=== PATIENT | male | born 1950 | race Caucasian/White ===

== ENCOUNTER 2018-03-31 11:53 | Inpatient (IN) | payer MEDICARE ==
--- NOTE | 2018-03-28 16:52 | HP ---
HISTORY AND PHYSICAL: DATE OF SERVICE: 03/31/18. PROVIDER: Dr. Caterina Blandon.* (DICTATED BY RICA FERREIRA) HISTORY OF PRESENT ILLNESS: Mr. Goodson is a 67-year-old gentleman with years of bilateral knee pain. He states that the pain is an 8 to 9 out of 10, aching and severe. He has trouble ambulating for more than a block at this point due to the severe pain. He has failed conservative management with anti- inflammatories, pain medications, use of a cane, crutches, and physical therapy. He would like to proceed with a right total knee arthroplasty at this time to be performed on 03/31/[address] Caterina Blandon. PAST MEDICAL HISTORY: 1. Morbid obesity. 2. Hypertension. 3. Osteoarthritis. 4. Depression. 5. Chronic low back pain. 6. Enlarged prostate. 7. Sleep apnea. PAST SURGICAL HISTORY: Lumbar laminectomy and hernia repair. MEDICATIONS: 1. Olmesartan. 2. Medoxomil/hydrochlorothiazide 20/12.5 mg. 3. Nitroxoline 400 mg. 4. Albuterol sulfate 1.25 mg/3 mL. 5. Mometasone furoate 50 mg. 6. Felodipine ER 2.5 mg. 7. Hydrocodone/acetaminophen 5/325. 8. Advair HFA 230-21 9. ProAir HFA 108. 10. Bupropion 100 mg. 11. Singular 10 mg. 12. Loratadine 10 mg 13. Tamsulosin hydrochloric acid acid 0.4 mg. 14. Finasteride 5 mg. 14. Vitamin D3 1000 units 16. Meloxicam 15 mg. 17. Oxymetazoline hydrochloric acid 0.05%. ALLERGIES: 1. CHICKEN. 2. CHOCOLATE. 3. DIARY. 4. PSEUDOEPHEDRINE. 5. LEVAQUIN. 6. BENAZEPRIL. SOCIAL HISTORY: The patient lives with his spouse. 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 He has no tobacco or recreational drug use. He drinks 3 to 5 alcoholic beverages per week. Normally active . Right hand dominant. REVIEW OF SYSTEMS: General: The patient denies any fevers, chills or night sweats. No known anesthesia problems. HEENT: The patient denies any headaches , lightheadedness or syncopal episodes. Cardiothoracic: The patient denies any chest pain, heart palpitations, or edema. Pulmonary: The patient denies any shortness of breath with exertion, chronic cough, or COPD. GI: The patient denies any nausea, vomiting, diarrhea, or constipation. : The patient denies any nocturia, urinary frequency, or urgency. MSK: The patient admits to chronic low back pain. Denies any neck pain or fractures. Neuro: The patient denies any paresthesias, numbness, or seizures. Integument: The patient denies any abrasions, lesions, rashes, lumps, or open sores. PHYSICAL EXAMINATION GENERAL: The patient is alert and oriented x3, with appropriate mood and affect , appropriate dress and hygiene. HEENT: Normocephalic, atraumatic. Hearing and vision are grossly intact. PULMONARY: Lungs are clear to auscultation bilaterally with no wheezes, rales, or rhonchi. CARDIO: Regular rate and rhythm. Normal S1 and S2. No appreciable S3 or S4. No murmurs, rubs, or gallops. MUSCULOSKELETAL: Right lower extremity: Inspection of the right lower extremity reveals no erythema or ecchymosis. Skin is warm, dry, and intact. There is moderate effusion present above the knee. Tenderness along the medial and lateral joint line. No increased laxity obtained with varus or valgus stress testing. Negative Ricarda's. Negative anterior and posterior drawer tests. Range of motion of the knee is 10 degree of extension to 120 degrees of flexion. He has full strength and full sensation intact distally with a 2+ dorsalis pedis pulse. IMPRESSION: Right knee osteoarthritis, severe end stage. PLAN: To the OR for a right total knee arthroplasty to be performed by Dr. Caterina Blandon on 03/31/18. The patient will return postoperatively for suture removal and a follow up. The risks, benefits, and complications of surgery were discussed with the patient at this time by Dr. Blandon. RICA FERREIRA [id number]/[facility] #: [id number] [facility]ITAL[facility]ovanny
[~2018-03-31 11:53] MED LIST: Buffered Lidocaine 0.9% SYRIN* 5 ML/SYR SYRINGE INTRADERM ONE; Dexamethasone TAB* 4 MG PO ONE; DiMENhydriNATE IV* 50 MG/ML VIAL IV PUSH PRN; Famotidine IV* 10 MG/ML 2 ML (20 mg) IV ONE; Gabapentin CAP(*) 300 MG PO ONE; Morphine VIAL* 4 MG/ML VIAL (1 ml vial) IV PRN; Naloxone* 0.4 MG/ML 1 ML VIAL IV PRN; Ondansetron INJ* 2 MG/ML VIAL ONE; PROCHLORPERAZINE INJ 5 MG/ML 2 ML VIAL IV PRN; Scopolamine 1.5 mg* PATCH TRANSDERM PRN; Tranexamic Acid 1,000 MG in NS 0.9% 50 ML* (outpatient use) IV SCH; fentaNYL* 50 MCG/ML 2 ML VIAL (100 MCG VIAL) IV PRN; oxyCODONE/Acetamin 5/325 MG* TAB PO PRN
--- OUTSIDE RECORDS SUMMARY | 2018-03-31 12:00 | XMS REPORT ---
:1950 External Reference #:[id number] Author Organization [facility] Address [address] [place] [address] Phone [phone] Care Team Providers Name Role Phone Jayesh Sidhu MD Primary Care Physician Unavailable Payers Type Date Identification Numbers Payment Provider Subscriber Health Maintenance Policy Number: Medicare Blue Ppo Roxana Giovanny Hamzah Collins (O) [id number] Group Number: [id number] [address] [address] PayID: [id number] [place] [address] Problems Date Description Provider Status Onset: 04/12/2009 Intrinsic asthma without status Jayesh Sidhu M.D., FACP Active asthmaticus Onset: 04/12/2009 Obesity Jayesh Sidhu M.D.,FACP Active Onset: 04/12/2009 Obstructive sleep apnea syndrome Jayesh Sidhu M.D., FACP Active Onset: 10/28/2009 Impaired fasting glycaemia Jayesh Sidhu M.D.,FACP Active Onset: 01/05/2011 Atypical depressive disorder Jayesh Sidhu M.D.,FACP Active Onset: 01/05/2011 Cobalamin deficiency Jayesh Sidhu M.D.,FACP Active Onset: 01/05/2011 Vitamin D deficiency Jayesh Sidhu M.D.,FACP Active Onset: 05/18/2011 Family history of prostate Jayesh Sidhu M.D.,FACP Active cancer Onset: 05/31/2015 Essential hypertension Ameya Glover NP Active Onset: 02/10/2016 Headache Aurora Flannery DNP, RN, Active POLYSOM TECH-BC Onset: 10/18/2016 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 Active osteoarthritis Onset: 04/09/2017 Displacement of lumbar Vassilaly Clements MD Active intervertebral disc without myelopathy Onset: 04/09/2017 Lumbosacral spondylosis without Latosha Clements MD Active myelopathy Onset: 01/05/2011 Extrinsic asthma without status Jayesh Sidhu, Inactive asthmaticus [place],FACP Inactive: 12/21/2011 Family History Date Family Member(s) Problem(s) Comments Father due to at age 94 () Father Cancer, Colon : (age 80 Years) Mother due to Alzheimer's Disease Siblings 2 Onset: (age 64 Years) First Brother Cancer, Prostate Social History Type Date Description Comments Marital Status Lives With 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 Cigarette Use Never Smoked Cigarettes ETOH Use 03/06/2018 consumes 2-3 beers per week Recreational Drug Use 04/24/2016 Denies Drug Use Smoking Patient has never smoked Daily Caffeine Consumes on average 3 cups of regular coffee per day Exercise Type/Frequency PT therapy pool General Hx Text 2 children Allergies, Adverse Reactions, Alerts Date Description Reaction Status Severity Comments 04/12/2009 Chicken nasal congestion active 04/12/2009 Chocolate nasal congestion active 04/12/2009 Dairy nasal congestion active 04/12/2009 Sudafed anxiety active 06/16/2015 Levaquin active Achilles tendonitis 09/12/2017 Benazepril active cough Medications Medication Date Status Form Strength Qnty SIG Indications Ordering Provider Hospital Bed 03/05 Active 1unit Semi- Caterina s ricarda Patterson M.D. bed Walker 03/05 Active Misc 1unit front s wheeled hiren Blandon M.D. Shower Bench 03/05 Active 1unit shower s bench Barber M.D. Shingrix 01/14 Active Suspension 50mcg 2unit 0.5 Rec s milliliter Alice Sidhu, s M.D.,FACP intramuscu lar now and 2-3 months later repeat Olmesartan 01/14 Active Tablets 20-12.5mg 90tab 1 po qam R05 Medoxomil/Hydroch s Alice Sidhu, lorothiazide M.D.,FACP Metaxalone 10/25 Active Tablets 400mg 60tab one tab by s mouth Alice Sidhu, twice M.D.,FACP daily as needed Albuterol Sulfate 09/13 Active Nebulizer 1.25mg/3M 75ml use four L times a Alice Sidhu, day as M.D.,FACP needed with nebulizer Mometasone 08/06 Active Suspension 50mcg/Act 17gm 1 spray Adrián Furoate nasl each Pachikara side every , M.D. day Felodipine ER 08/06 Active Tablets ER 2.5mg 90tab 1 by mouth I10 24HR s every day Alice Sidhu M.D.,FACP Hydrocodone-Aceta 02/12 Active Tablets 5-325mg 120ta 1 by mouth bs every 4-6 D. Nahum, hours prn. M.D.,FACP Blood Pressure 08/02 Active Misc 1unit Check BP R05 Ameya Monitor Digital /2015 s 1-2 times Adalberto, [facility]ED [facility] weekly Advair HFA 06/16 Active Aerosol 230-21mcg 12gm 2 puffs J01.90 /2015 /Act twice Alice Sidhu, daily M.D.,FACP Proair HFA 05/31 Active Aerosol 108(90Bas 1unit take 2 R05 e) s puffs Alice Sidhu, mcg/Act every 4-6 M.D.,FACP hours as needed for shortness of breath. Cyanocobalamin 08/01 Active Solution 1000mcg/M 10uni 1 D51.3 L ts milliliter Alice Sidhu, s M.D.,FACP intramuscu lar [id number] Vitamin B-12 12/20 Active Tablets Sub 500mcg 50tab 1 po qd D51.3 s Alice Sidhu M.D.,FACP Bupropion HCL 01/05 Active Tablets 100mg 90tab take 2 F32.9 s tablets by Levonikara arnie M.D. every morning and 1 tablet at noon Singulair 01/05 Active Tablets 10mg 30tab 1 by mouth J45.20 s every day Alice Sidhu M.D.,FACP 3ML 12/08 Active Misc 22G X 1" 12uni use for Jayesh Syringe/Needle 3 ML ts b12 Alice Sidhu, Thin Wall injection [place],FACP Luer-Urban 22GX1" Im Loratadine 04/12 Active Tablets 10mg 90tab take 1 tab s daily as Alice Sidhu, needed M.DAngelina,FACP Tamsulosin HCL Active Capsules 0.4mg 30cap 1 po qd Unknown /0000 s Finasteride Active Tablets 5mg 90tab 1 by mouth Unknown / s every day Vitamin D-3 Active Capsules 1000Unit 1 by mouth Unknown /0000 every day Meloxicam Active Tablets 15mg 1 by mouth Unknown /0000 every day Oxymetazoline HCL Active Solution 0.05% nasal Unknown spray as directed on package prn Augmentin 09/12 Hx Tablets 875-125mg 14tab by mouth s twice a Alice Sidhu, - day [facility] 09/19 Prednisone 09/12 Hx Tablets 10mg 28tab 4 tabs s every day Alice Sidhu, - for 4 M.D.,FACP 09/22 days, reduce by 1 tab every 2 days until finished Cheratussin ac 09/12 Hx Solution 100-10mg/ 473ml 5-10 5ML milliliter Alice Sidhu, - s by mouth M.D.,FACP 01/14 four times /2017 a day as needed Amoxicillin/Clavu 08/06 Hx Tablets 875-125mg 20tab by mouth J01.10 Kwame Jeong lanate Potassium /2017 s twice a Alice Sidhu, - day [facility] 08/16 Valsartan-Hydroch 07/04 Hx Tablets 80-12.5mg 90tab 1 by mouth R0 Javier Helms lorothiazide s every day Alice Sidhu, - M.D.,[facility] 01/14 Azithromycin 04/30 Hx Tablets 250mg 6tabs 2 every Jayesh day for 1 D. Nahum, - day, then M.D.,[facility] 05/07 1 every day Valsartan 04/30 Hx Tablets 80mg 30tab 1 by mouth R0Jayesh s once daily Alice Sidhu, - M.D.,[facility] 07/04 Skelaxin 03/12 Hx Tablets 800mg 30tab 1/-1 by M47.26 s mouth Alice Sidhu, - three M.D.,[facility] 01/14 times day as needed Skelaxin 02/12 Hx Tablets 800mg 30tab 1 by mouth s three Alice Sidhu, - times a M.D.,[facility] 02/26 day needed Furosemide 09/11 Hx Tablets 20mg 10tab take 1 s tablet Alice Sidhu, - every M.D.,[facility] 04/30 Skelaxin 05/08 Hx Tablets 800mg 30tab 1 by mouth s three Alice Sidhu, - times a M.D.,[facility] 09/11 day needed Hydrocodone-Aceta 05/08 Hx Tablets 5-325mg 20tab 1 by mouth Jayesh minophen s every 4-6 D. Nahum, - hours prn. M.D.,[facility] 09/11 Valsartan 08/02 Hx Tablets 80mg 30tab 1 by mouth Jayesh s once daily Alice Sidhu, - M.D.,[facility] 04/30 Prednisone 06/17 Hx Tablets 20mg 10tab 2 tabs qd Ameya s x 5 days SALLY Glover - 06/24 Amoxicillin/Clavu 06/16 Hx Tablets ER 1000-62.5 40tab take 2 J01.90 Ameya lanate 12HR mg s tablets SALLY Glover ER - twice a 06/27 day for days. Benzonatate 06/16 Hx Capsules 200mg 30cap one by J01.90 s mouth Alice Sidhu, - three M.DAngelina,FACP 04/24 times daily as needed for cough Biaxin 06/07 Hx Tablets 500mg 28tab one tab s Q12 hrs Adalberto [facility] - for 14 Advair HFA 05/31 Hx Aerosol 115-21mcg 12gm 2 puffs Ameya /2015 /Act twice Adalberto [facility] - daily 04/24 Cheratussin ac 05/31 Hx Solution 100-10mg/ 473ml 5-10 R05 5ML milliliter Alice Sidhu, - s by mouth M.DAngelina,FACP 04/24 four times a day as needed Clarithromycin 05/17 Hx Tablets 500mg 14tab one tab by Katerin06.9 Jarett s mouth Dwain [facility] - twice a 05/26 day x days Methylprednisolon 05/17 Hx Tablets 4mg 21tab take 6 J06.9 Jarett e (Myron) s tabs on SALLY Prakash - day 1, 5 05/24 tabs day 2, 4 tabs on day 3, 3 tabs on day 4, 2 tabs on day 5, 1 tab on day 6 Cheratussin ac 05/17 Hx Solution 100-10mg/ 200un 5-10 493.92 Jarett 5ML its milliliter Dwain [facility] - s by mouth 06/01 four times a day as needed Xopenex 05/17 Hx Nebulizer 0.63mg/3M 72ml Instill to J06.9 Jarett L nebulizer SALLY Prakash - three 04/24 times day as needed for shortness of breath. Benazepril HCL 03/31 Hx Tablets 10mg 30tab 1 by mouth R05 Jarett s every day Prakash, [facility] - 08/02 Cheratussin ac 06/10 Hx Solution 100-10mg/ 200un 5-10 493.92 5ML its milliliter Alice Sidhu, - s by mouth M.D.,[facility] 03/31 four times a day as needed Advair HFA 06/10 Hx Aerosol 230-21mcg 2 puff /Act twice a D. Nahum, - day M.D.,[facility] 03/31 Levaquin 06/03 Hx Tablets 500mg 7tabs 1 by mouth 493.92 every day Alice Sidhu, - x 7 days M.D.,[facility] 06/03 Augmentin 06/03 Hx Tablets 875-125mg 14tab by mouth 493.92 s twice a D. Nahum, - day for 1 M.D.,[facility] 06/10 wk (can levaquin and clarithrom ycin) Prednisone 06/03 Hx Tablets 10mg 50tab 60 mg qd s for 3 D. Nahum, - days, then M.D.,[facility] 06/17 by 10 mg every 2 days until stopped Prednisone 06/01 Hx Tablets 20mg 2 tabs qd x 5 days DAngelina Sidhu, - M.D.,[facility] 06/03 Prednisone 06/01 Hx Tablets 20mg 2 tabs qd x 5 days - 06/03 Clarithromycin 12/23 Hx Tablets 500mg 20tab 1 by mouth 493.92 s twice a D. Nahum, - day for 10 M.D.,[facility] Oxycodone-Acetami 10/06 Hx Tablets 7.5-325mg 30tab /2-1 by 722.2 s mouth D. Nahum, - three M.D.,[facility] 12/23 times a day as needed Medrol 09/18 Hx Tablets 4mg 1pak medrol dosepack Alice Sidhu, - as M.D.,[facility] 10/06 Vitamin D-1000 05/22 Hx Tablets 1000Unit 3 tabs E55.9 daily Alice Sidhu, - M.D.,[facility] 04/24 BD 12/05 Hx 3ml 12uni Use For B ts 12 Yarely Zheng Injection [place],[facility] 12/20 Vitamin D 05/18 Hx Capsules 2000Unit 30cap 1 po qd 268.9 s Yarely Zheng M.D.,[facility] 05/22 Vitamin D High 01/05 Hx Capsules 1000Unit 1 po qd 268.9 Yarely Zheng M.D.,[facility] 05/18 Cyanocobalamin 11/24 Hx Solution 1000mcg/M 10uni Inject 1 L ts milliliter Yarely Zheng Intramuscu [place],[facility] 08/01 larly Monthly monthly Bupropion HCL SR 11/22 Hx Tablets ER 100mg 60tab 1 po qam 311 12HR s and q noon Yarely Zheng M.D.,[facility] 01/05 Advair HFA 10/28 Hx Aerosol 115-21mcg 2 puffs /Act qam Yarely Zheng M.D.,[facility] 06/10 Ventolin HFA 04/19 Hx Aerosol 108(90Bas 1mon 2 puffs R05 e) mcg/ac qid prn Yarely Zheng M.D.,[facility] 05/31 Advair Diskus 04/12 Hx Misc 250-50mcg 60uni inhale 1 /Dose ts dose by Yarely Zheng mouth [place],[facility] 10/28 twice a day Clarithromycin 04/12 Hx Tablets 500mg 14tab 1 po bid 493.10 s for 7 days Yarely Zheng M.D.,[facility] 10/28 Cipro Hx ?Dose bid Unknown /0000 started - 12/20/10 x 01/05 Vicodin Hx 5/500 1 tab Q6 Unknown /0000 hr. - 05/18 Avodart Hx Capsules 0.5mg 90cap 1 po qd Unknown /0000 s - 03/30 Nasonex Hx Suspension 50mcg/Act 1Mon 1 spray Unknown /0000 mir each - side every Benzonatate Hx Capsules 200mg 20cap one by Unknown /0000 s mouth - three 06/10 times daily x 10 days Vitamin B12 Hx Tablets 100mcg 1 by mouth Unknown /0000 every day - 04/24 Metaxalone Hx Tablets 400mg if needed Jayesh /Yarely Rebolledo M.D.,[facility] 03/12 Medications Administered in Office Medication Date Status Form Strength Qnty SIG Indications Ordering Provider B-12 Injection Administered Injection Nurse Visit 011 [place] B-12 Injection Administered Injection Nurse Visit 011 [place] B-12 Injection Administered Injection Nurse Visit 011 [place] Immunizations CPT Code Status Date Vaccine Reaction Lot # [id number] Given 03/06/2018 Fluzone High Dose [id number] 87518 Given 04/30/2017 Pneumococcal Conjugate Vaccine 13 Valent [id number] For Intramuscular Use 22421 Given 03/12/2017 Influenza Virus Vaccine, Quadrivalent, [id number] Split, Preservative Free [id number] Given 03/25/2016 Flu Vaccine NOS 32369 Given 03/22/2016 Influenza Virus Vaccine, Quadrivalent, Split Virus, [place] Use 78401 Given 04/08/2014 Flu Vaccine Split Virus Preservative [id number] Free For Indiv 3Yr Older Q2038 Given 06/04/2013 Fluzone Vaccine Q2037 Given 03/26/2012 Fluvirin Im 3Yrs And Older Q2037 Given 03/26/2012 Fluvirin Im 3Yrs And Older [id number] 53902 Given 12/21/2011 Zoster (Zostavax) [id number] 37409 Given 05/18/2011 Tdap - Tetanus/Diptheria/Acellular {} { [id number] Pertussis 81695 Given 03/30/2010 Pneumonia Vaccine [id number] 95743 Given 03/30/2010 Influenza Virus 3Yrs & Over [id number] 51046 Given 04/12/2009 Influenza Virus Vaccine, Pandemic [id number] Formulation 53271 Given 04/12/2009 Administration Swine Flu Shot Vital Signs Date Vital Result Comment 03/26/2018 Height 72 inches 6'0" Weight 328.00 lb Heart Rate 76 /min BP Systolic 138 mmHg BP Diastolic 84 mmHg Respiratory Rate 18 /min Body Temperature 97.6 F Pain Level 4 BMI (Body Mass Index) 44.5 kg/m2 03/12/2018 Height 72 inches 6'0" Weight 328.38 lb Heart Rate 68 /min BP Systolic Sitting 116 mmHg Lue large cuff BP Diastolic Sitting 76 mmHg Lue large cuff Respiratory Rate 16 /min O2 % BldC Oximetry 94 % BMI (Body Mass Index) 44.5 kg/m2 03/06/2018 Height 72 inches 6'0" Weight 328.00 lb Heart Rate 79 /min BP Systolic Sitting 142 mmHg BP Diastolic Sitting 80 mmHg BP Systolic Recheck 132 mmHg BP Diastolic Recheck 78 mmHg Body Temperature 96.8 F O2 % BldC Oximetry 94 % BMI (Body Mass Index) 44.5 kg/m2 02/28/2018 Height 72 inches 6'0" Weight 325.00 lb BP Systolic 117 mmHg BP Diastolic 67 mmHg Respiratory Rate 17 /min Pain Level 9 BMI (Body Mass Index) 44.1 kg/m2 02/20/2018 Height 72 inches 6'0" Weight 326.00 lb Heart Rate 72 /min BP Systolic 120 mmHg BP Diastolic 64 mmHg Body Temperature 97.9 F O2 % BldC Oximetry 95 % BMI (Body Mass Index) 44.2 kg/m2 01/14/2018 Height 72 inches 6'0" Weight 321.00 lb Heart Rate 79 /min BP Systolic Sitting 136 mmHg BP Diastolic Sitting 64 mmHg Body Temperature 98.4 F O2 % BldC Oximetry 91 % BMI (Body Mass Index) 43.5 kg/m2 09/12/2017 Weight 327.00 lb Heart Rate 76 /min BP Systolic Sitting 150 mmHg BP Diastolic Sitting 70 mmHg Body Temperature 98.4 F O2 % BldC Oximetry 89 % 08/06/2017 Weight 329.00 lb Heart Rate 68 /min BP Systolic Sitting 170 mmHg BP Diastolic Sitting 80 mmHg BP Systolic Recheck 152 mmHg BP Diastolic Recheck 84 mmHg Body Temperature 97.7 F O2 % BldC Oximetry 92 % 04/30/2017 Height 71 inches 5'11" Weight 331.00 lb Heart Rate 73 /min BP Systolic Sitting 170 mmHg BP Diastolic Sitting 90 mmHg BP Systolic Recheck 158 mmHg BP Diastolic Recheck 88 mmHg Body Temperature 98.3 F O2 % BldC Oximetry 96 % BMI (Body Mass Index) 46.2 kg/m2 04/09/2017 Height 72 inches 6'0" Weight 333.00 lb Heart Rate 72 /min BP Systolic Sitting 160 mmHg BP Diastolic Sitting 80 mmHg Pain Level 5 BMI (Body Mass Index) 45.2 kg/m2 03/12/2017 Weight 333.00 lb Heart Rate 75 /min BP Systolic Sitting 140 mmHg BP Diastolic Sitting 78 mmHg Body Temperature 98.0 F O2 % BldC Oximetry 93 % 02/27/2017 Height 72 inches 6'0" Weight 333.00 lb Heart Rate 84 /min BP Systolic Sitting 122 mmHg BP Diastolic Sitting 84 mmHg Respiratory Rate 14 /min O2 % BldC Oximetry 95 % BMI (Body Mass Index) 45.2 kg/m2 02/12/2017 Weight 327.00 lb Heart Rate 73 /min BP Systolic Sitting 150 mmHg BP Diastolic Sitting 90 mmHg Body Temperature 98.3 F O2 % BldC Oximetry 96 % 11/06/2016 Height 72 inches 6'0" Weight 336.00 lb Heart Rate 68 /min BP Systolic 140 mmHg BP Diastolic 82 mmHg Respiratory Rate 17 /min Body Temperature 97.2 F Pain Level 3 BMI (Body Mass Index) 45.6 kg/m2 09/11/2016 Weight 336.00 lb Heart Rate 69 /min BP Systolic Sitting 144 mmHg BP Diastolic Sitting 82 mmHg Body Temperature 97.3 F Pain Level 5 knees O2 % BldC Oximetry 93 % 05/08/2016 Height 72 inches 6'0" Weight 337.00 lb Heart Rate 68 /min BP Systolic 160 mmHg BP Diastolic 88 mmHg Body Temperature 98.0 F Pain Level 8 O2 % BldC Oximetry 98 % BMI (Body Mass Index) 45.7 kg/m2 04/24/2016 Height 72 inches 6'0" Weight 340.00 lb Heart Rate 74 /min BP Systolic 130 mmHg BP Diastolic 80 mmHg Body Temperature 98.1 F O2 % BldC Oximetry 95 % BMI (Body Mass Index) 46.1 kg/m2 02/10/2016 Height 72 inches 6'0" Weight 330.00 lb Heart Rate 65 /min BP Systolic 142 mmHg BP Diastolic 84 mmHg Respiratory Rate 14 /min O2 % BldC Oximetry 95 % BMI (Body Mass Index) 44.8 kg/m2 08/05/2015 Height 72 inches 6'0" Weight 330.00 lb Heart Rate 64 /min BP Systolic 128 mmHg BP Diastolic 70 mmHg Respiratory Rate 14 /min O2 % BldC Oximetry 96 % BMI (Body Mass Index) 44.8 kg/m2 08/03/2015 Weight 329.00 lb Heart Rate 73 /min BP Systolic Sitting 131 mmHg BP Diastolic Sitting 70 mmHg Respiratory Rate 16 /min Body Temperature 97.7 F O2 % BldC Oximetry 94 % 07/18/2015 Weight 331.00 lb Heart Rate 66 /min BP Systolic Sitting 130 mmHg BP Diastolic Sitting 84 mmHg Respiratory Rate 14 /min Body Temperature 98.2 F O2 % BldC Oximetry 98 % 06/16/2015 Weight 325.50 lb Heart Rate 77 /min BP Systolic Sitting 123 mmHg BP Diastolic Sitting 65 mmHg Respiratory Rate 20 /min Body Temperature 97.8 F Pain Level 7 O2 % BldC Oximetry 94 % 05/31/2015 Weight 321.25 lb Heart Rate 61 /min BP Systolic Sitting 128 mmHg BP Diastolic Sitting 81 mmHg Body Temperature 97.7 F O2 % BldC Oximetry 95 % 05/17/2015 Height 71 inches 5'11" Weight 328.00 lb Heart Rate 74 /min BP Systolic 135 mmHg BP Diastolic 72 mmHg Body Temperature 98.4 F O2 % BldC Oximetry 97 % BMI (Body Mass Index) 45.7 kg/m2 05/06/2015 Height 71 inches 5'11" Weight 326.00 lb Heart Rate 64 /min BP Systolic Sitting 136 mmHg BP Diastolic Sitting 82 mmHg Respiratory Rate 16 /min O2 % BldC Oximetry 96 % BMI (Body Mass Index) 45.5 kg/m2 03/31/2015 Height 71 inches 5'11" Weight 330.00 lb Heart Rate 67 /min BP Systolic 140 mmHg BP Diastolic 80 mmHg Body Temperature 97.8 F O2 % BldC Oximetry 96 % BMI (Body Mass Index) 46.0 kg/m2 03/18/2015 Height 72 inches 6'0" Weight 330.00 lb Heart Rate 82 /min BP Systolic Sitting 152 mmHg BP Diastolic Sitting 98 mmHg Respiratory Rate 18 /min O2 % BldC Oximetry 97 % BMI (Body Mass Index) 44.8 kg/m2 01/25/2015 Height 72 inches 6'0" Weight 331.38 lb Heart Rate 68 /min BP Systolic 168 mmHg BP Diastolic 80 mmHg Respiratory Rate 14 /min Body Temperature 98.8 F O2 % BldC Oximetry 93 % BMI (Body Mass Index) 44.9 kg/m2 Neck Circumference in inches 18.5 06/10/2014 Weight 327.00 lb Heart Rate 64 /min BP Systolic Sitting 155 mmHg BP Diastolic Sitting 88 mmHg Body Temperature 97.6 F O2 % BldC Oximetry 95 % 06/03/2014 Height 71.75 inches 5'11.75" Weight 330.50 lb Heart Rate 85 /min BP Systolic Sitting 160 mmHg BP Diastolic Sitting 82 mmHg Respiratory Rate 16 /min Body Temperature 98.5 F O2 % BldC Oximetry 97 % BMI (Body Mass Index) 45.1 kg/m2 12/23/2013 Weight 320.75 lb Heart Rate 80 /min BP Systolic Sitting 150 mmHg BP Diastolic Sitting 84 mmHg Body Temperature 98.9 F 10/06/2013 Weight 314.75 lb Heart Rate 64 /min BP Systolic Sitting 152 mmHg BP Diastolic Sitting 98 mmHg Body Temperature 97.7 F 08/31/2013 Height 72 inches 6'0" Weight 325.00 lb Heart Rate 68 /min BP Systolic Sitting 152 mmHg BP Diastolic Sitting 78 mmHg Body Temperature 98.6 F BMI (Body Mass Index) 44.1 kg/m2 10/30/2012 Weight 312.00 lb Heart Rate 68 /min BP Systolic Sitting 136 mmHg BP Diastolic Sitting 78 mmHg 08/01/2012 Height 71.75 inches 5'11.75" Weight 315.75 lb Heart Rate 72 /min BP Systolic Sitting 130 mmHg BP Diastolic Sitting 84 mmHg BMI (Body Mass Index) 43.1 kg/m2 05/22/2012 Height 71.75 inches 5'11.75" Weight 330.00 lb Heart Rate 88 /min BP Systolic Sitting 137 mmHg BP Diastolic Sitting 85 mmHg BMI (Body Mass Index) 45.1 kg/m2 12/21/2011 Height 72.25 inches 6'0.25" Weight 324.00 lb Heart Rate 72 /min BP Systolic Sitting 110 mmHg BP Diastolic Sitting 74 mmHg BMI (Body Mass Index) 43.6 kg/m2 05/18/2011 Height 72.25 inches 6'0.25" Weight 321.75 lb Heart Rate 76 /min BP Systolic Sitting 150 mmHg BP Diastolic Sitting 88 mmHg BMI (Body Mass Index) 43.3 kg/m2 01/05/2011 Weight 314.00 lb Heart Rate 64 /min BP Systolic Sitting 130 mmHg BP Diastolic Sitting 74 mmHg 12/22/2010 Height 315 inches 26'3" Heart Rate 80 /min BP Systolic Sitting 122 mmHg BP Diastolic Sitting 76 mmHg 12/20/2010 Heart Rate 80 /min BP Systolic Sitting 112 mmHg BP Diastolic Sitting 70 mmHg Body Temperature 99.1 F 11/22/2010 Weight 324.00 lb Heart Rate 70 /min BP Systolic Sitting 132 mmHg BP Diastolic Sitting 82 mmHg 06/08/2010 Weight 325.00 lb Heart Rate 74 /min BP Systolic Sitting 138 mmHg BP Diastolic Sitting 90 mmHg 10/28/2009 Weight 322.00 lb Heart Rate 64 /min BP Systolic Sitting 138 mmHg BP Diastolic Sitting 72 mmHg Respiratory Rate 18 /min 04/12/2009 Weight 313.00 lb Heart Rate 77 /min BP Systolic Sitting 133 mmHg BP Diastolic Sitting 79 mmHg Respiratory Rate 20 /min Body Temperature 97.6 F O2 % BldC Oximetry 96 % Results Test Date Test Result H/L Range Note Lipid Profile (Trig/Chol/HDL) 04/09/2017 Triglycerides 117 mg/dL 1 Cholesterol 173 mg/dL 2 HDL Cholesterol 38.0 mg/dL 3 LDL Cholesterol 112 mg/dL 4 Basic Metabolic Panel 04/09/2017 Sodium 140 mmol/L 133-145 Potassium 4.3 mmol/L 3.5-5.0 Chloride 106 mmol/L 101-111 Co2 Carbon Dioxide 27 mmol/L 22-32 Anion Gap 7 mmol/L 2-11 Glucose 113 mg/dL High 70-100 Blood Urea Nitrogen 24 mg/dL 6-24 Creatinine 0.82 mg/dL 0.67-1.17 BUN/Creatinine Ratio 29.3 High 8-20 Calcium 9.1 mg/dL 8.6-10.3 Egfr Non- 94.3 >60 Egfr 121.3 >60 5 Laboratory test finding 04/09/2017 Hemoglobin A1c (Glyco 5.8 % High 4.0- 5.6 6 HGB) CBC Auto Diff 04/09/2017 White Blood Count 6.0 10^3/uL 3.5-10.8 Red Blood Count 5.05 10^6/uL 4.0-5.4 Hemoglobin 15.3 g/dL 14.0-18.0 Hematocrit 46 % 42-52 Mean Corpuscular Volume 90 fL 80-94 Mean Corpuscular Hemoglobin 30 pg 27-31 Mean Corpuscular HGB Conc 34 g/dL 31-36 Red Cell Distribution Width 14 % 10.5-15 Platelet Count 169 10^3/uL 150-450 Mean Platelet Volume 9 um3 7.4-10.4 Abs Neutrophils 3.4 10^3/uL 1.5-7.7 Abs Lymphocytes 1.7 10^3/uL 1.0-4.8 Abs Monocytes 0.6 10^3/uL 0-0.8 Abs Eosinophils 0.3 10^3/uL 0-0.6 Abs Basophils 0.1 10^3/uL 0-0.2 Abs Nucleated RBC 0 10^3/uL Granulocyte % 56.1 % 38-83 Lymphocyte % 28.1 % 25-47 Monocyte % 9.9 % High 1-9 Eosinophil % 5.0 % 0-6 Basophil % 0.9 % 0-2 Nucleated Red Blood Cells % 0 Laboratory test finding 04/09/2017 Vitamin B12 416 pg/mL 180-914 7 Laboratory test finding 03/15/2017 PSA Screening 1.185 ng/mL 0-4.0 8 Laboratory test finding 12/05/2016 Surgical Pathology SEE RESULT BELOW 9 Comp Metabolic Panel 04/25/2016 Sodium 137 mmol/L 133-145 Potassium 4.5 mmol/L 3.5-5.0 Chloride 103 mmol/L 101-111 Co2 Carbon Dioxide 28 mmol/L 22-32 Anion Gap 6 mmol/L 2-11 Glucose 116 mg/dL High 70-100 Blood Urea Nitrogen 19 mg/dL 6-24 Creatinine 0.80 mg/dL 0.67-1.17 BUN/Creatinine Ratio 23.8 High 8-20 Calcium 9.1 mg/dL 8.6-10.3 Total Protein 6.4 g/dL 6.4-8.9 Albumin 4.1 g/dL 3.2-5.2 Globulin 2.3 g/dL 2-4 Albumin/Globulin Ratio 1.8 1-3 Total Bilirubin 0.60 mg/dL 0.2-1.0 Alkaline Phosphatase 73 U/L 34-104 Alt 27 U/L 7-52 Ast 17 U/L 13-39 Egfr Non- 97.3 >60 Egfr 125.2 >60 10 Lipid Profile (Trig/Chol/HDL) 04/25/2016 Triglycerides 127 mg/dL 11 Cholesterol 162 mg/dL 12 HDL Cholesterol 37.0 mg/dL 13 LDL Cholesterol 100 mg/dL 14 Laboratory test finding 04/25/2016 Hepatitis C Antibody Nonreactive Nonreactive 15 Hemoglobin A1c (Glyco HGB) 6.0 % Less than 6.0 16 Vitamin D Total 25(Oh) 35.9 ng/mL 30-50 17 Laboratory test 03/12/2016 PSA Screening 1.045 ng/mL 0-4.0 18 finding Laboratory test 04/01/2015 Vitamin D Total 25(Oh) 21.9 ng/mL Low 30-50 19 , 20 finding Lipid Profile 04/01/2015 Triglycerides 118 mg/dL 19, 21 (Trig/Chol/HDL) Cholesterol 139 mg/dL 19, 22 HDL Cholesterol 33.3 mg/dL 19, 23 LDL Cholesterol 82 mg/dL 19, 24 Basic Metabolic Panel 04/01/2015 Sodium 141 mmol/L 133-145 19 Potassium 4.2 mmol/L 3.5-5.0 19 Chloride 107 mmol/L 101-111 19 Co2 Carbon Dioxide 29 mmol/L 22-32 19 Anion Gap 5 mmol/L 2-11 19 Glucose 114 mg/dL High 70-100 19 Blood Urea Nitrogen 19 mg/dL 6-24 19 Creatinine 0.75 mg/dL 0.67-1.17 19 BUN/Creatinine Ratio 25.3 High 8-20 19 Calcium 9.1 mg/dL 8.6-10.3 19 Egfr Non- 105.2 >60 19 Egfr 135.3 >60 19, 25 CBC Auto Diff 04/01/2015 White Blood Count 5.1 10^3/uL 4.8-10.8 19 Red Blood Count 5.02 10^6/uL 4.0-5.4 19 Hemoglobin 15.3 g/dL 14.0-18.0 19 Hematocrit 46 % 42-52 19 Mean Corpuscular Volume 92 fL 80-94 19 Mean Corpuscular Hemoglobin 30 pg 27-31 19 Mean Corpuscular HGB Conc 33 g/dL 31-36 19 Red Cell Distribution Width 14 % 10.5-15 19 Platelet Count 177 10^3/uL 150-450 19 Mean Platelet Volume 9 um3 7.4-10.4 19 Abs Neutrophils 3.1 10^3/uL 1.5-7.7 19 Abs Lymphocytes 1.3 10^3/uL 1.0-4.8 19 Abs Monocytes 0.6 10^3/uL 0-0.8 19 Abs Eosinophils 0.1 10^3/uL 0-0.6 19 Abs Basophils 0 10^3/uL 0-0.2 19 Abs Nucleated RBC 0.01 10^3/uL 19 Granulocyte % 60.4 % 38-83 19 Lymphocyte % 24.5 % Low 25-47 19 Monocyte % 12.1 % High 1-9 19 Eosinophil % 2.2 % 0-6 19 Basophil % 0.8 % 0-2 19 Nucleated Red Blood Cells % 0.1 19 Laboratory test finding 04/01/2015 Vitamin B12 475 pg/mL 180-914 19, 26 Laboratory test finding 03/11/2015 PSA Diagnostic 1.302 ng/mL 0-4.0 27 Laboratory test finding 03/19/2013 PSA Diagnostic 1.19 ng/mL 0-4.0 28 Laboratory test finding 10/30/2012 Hemoglobin A1c 5.8 5-7 Laboratory test finding 10/23/2012 PSA Screening 1.3 ng/mL 0-4.0 29 Vitamin B12 659 pg/mL 180-914 Vitamin D, 25 Hydroxy 10/23/2012 25-Hydroxy Vitamin D2 <4.0 ng/mL 25-Hydroxy Vitamin D3 32 ng/mL 25-Hydroxy Vitamin D Total 32 ng/mL 30 Vitamin D, 25 Hydroxy 08/15/2012 25-Hydroxy Vitamin D2 5.3 ng/mL 25-Hydroxy Vitamin D3 30 ng/mL 25-Hydroxy Vitamin D Total 35 ng/mL 31 Laboratory test finding 08/15/2012 Vitamin B12 604 pg/mL 180-914 Lipid Panel 05/17/2012 Triglycerides 99 mg/dL 40-200 Cholesterol 156 mg/dL Less than 200 HDL Cholesterol 33 mg/dL Low 40-60 32 Cholesterol/HDL Ratio 4.7 Average High 1-4.44 LDL Cholesterol 103.2 mg/dL High Less Than 100 33 BMP Basic Metabolic Panel 05/17/2012 Sodium 140 mmol/L 133-145 Potassium 4.3 mmol/L 3.5-5.0 Chloride 109 mmol/L 101-111 Co2 Carbon Dioxide 28.0 mmol/L 22-32 Anion Gap 3.0 mmol/L 2-11 Glucose 122 mg/dL High 70-100 Blood Urea Nitrogen 17 mg/dL 6-24 Creatinine 0.70 mg/dL 0.50-1.40 BUN/Creatinine Ratio 24.3 High 8-20 Calcium 8.9 mg/dL 8.1-9.9 Egfr Non- 115.0 >60 Egfr 147.9 >60 34 Vitamin D,25 Hydroxy 05/17/2012 25-Hydroxy Vitamin D2 <4.0 ng/mL 25-Hydroxy Vitamin D3 24 ng/mL 25-Hydroxy Vitamin D Total 24 ng/mL 35 Laboratory test finding 05/17/2012 Vitamin B12 664 pg/mL 180-914 36 Hemoglobin A1c 6.3 % High Less than 6.0 37 PSA Diagnostic 1.6 ng/mL 0-4.0 38 Laboratory test finding 12/14/2011 Vitamin B12 440 pg/mL 180-914 Vitamin D,25 Hydroxy 12/14/2011 25-Hydroxy Vitamin D2 <4.0 ng/mL () 25-Hydroxy Vitamin D3 32 ng/mL () 25-Hydroxy Vitamin D Total 32 ng/mL () 39 Laboratory test finding 12/14/2011 PSA 2.50 NG/ML 0-4 40 Laboratory test finding 07/06/2011 BUN 18 mg/dL 6-24 Creatinine 07/06/2011 Creatinine 0.9 mg/dL 0.50-1.40 One Over Creatinine 1.11 eGFR Non- 86.4 > 60 eGFR 111.1 > 60 41 Laboratory test finding 07/06/2011 PSA 3.43 NG/ML 0-4 42 Laboratory test finding 05/04/2011 Vitamin B12 254 pg/mL 180-914 Vitamin D, 25 Hydroxy 05/04/2011 25-Hydroxy Vitamin D2 <4.0 ng/mL () 25-Hydroxy Vitamin D3 26 ng/mL () 25-Hydroxy Vitamin D Total 26 ng/mL () 43 Stool Cult & Sensitivity 12/20/2010 Stool Specimen Description RENATE 44 , 45 Campylobacter Culture CAMPYLOBACTER SP <SEE NOTE> 44, 46 Fecal Lactoferrin (Stool WBC) TEST LIMITATIONS <SEE NOTE> 44, 47 Fecal Lactoferrin (Stool WBC) POSITIVE BY IMMU <SEE NOTE> 44, 48 O P: Giardia/Crypto Screen NEGATIVE BY IMMU <SEE NOTE> 44, 49 O P: Giardia/Crypto Screen Giardia and cryp <SEE NOTE> 44, 50 O P: Giardia/Crypto 12/20/2010 Fecal Lactoferrin TEST LIMITATIONS 44, 51 Screen (Stool WBC) <SEE NOTE> Fecal Lactoferrin (Stool WBC) POSITIVE BY IMMU <SEE NOTE> 44, 52 Campylobacter Culture CAMPYLOBACTER SP <SEE NOTE> 44, 53 Fecal Lactoferrin (Stool WBC) 12/20/2010 Stool Specimen Description RENATE 44, 54 Stool Cult Sensitivity BHAVESH 44, 55 Shiga Toxin 1 And 2 (Ehec) NEGATIVE BY IMMU <SEE NOTE> 44, 56 Fecal Lactoferrin 12/20/2010 Fecal Lactoferrin TEST LIMITATIONS <SEE 44 , 57 (Stool WBC) (Stool WBC) NOTE> Fecal Lactoferrin (Stool WBC) POSITIVE BY IMMU <SEE NOTE> 44, 58 Stool For Blood 12/20/2010 Stool For Blood POSITIVE Negative Stool Color BROWN Stool Form NONFORMED Stool Consistency LIQUID Blood Culture 12/20/2010 Aerobic Culture Bottle NG5 59 Anaerobic Culture Bottle 12/20/2010 Anaerobic Culture Bottle NG5 60 Comp Metabolic Panel 12/20/2010 Sodium 136 mmol/L 135-145 Potassium 3.7 mmol/L 3.5-5.0 Chloride 101 mmol/L 101-111 Co2 (Carbon Dioxide) 25.0 mmol/L 22-32 Anion Gap 10.0 mmol/L 2-11 61 Glucose 111 mg/dL High 70-100 BUN 17 mg/dL 6-24 Creatinine 0.97 mg/dL 0.50-1.40 One Over Creatinine 1.00 BUN/Creatinine Ratio 17.5 8-20 Calcium 8.5 mg/dL 8.1-9.9 Total Protein 7.3 GM/DL 6.2-8.1 Albumin 3.8 GM/DL 3.6-5.4 Globulin 3.5 GM/DL 2-4 Albumin/Globulin Ratio 1.1 1-3 Bilirubin Total 1.1 mg/dL 0.4-1.5 62 Alkaline Phosphatase 69 U/L 39-117 Alt (SGPT) 23 U/L 17-63 Ast (Sgot) 19 U/L 12-42 eGFR Non- 79.2 > 60 eGFR 101.9 > 60 63 CBC Auto Diff 12/20/2010 White Blood Count 9.8 CUMM 4.8-10.8 Red Cell Count 5.16 CUMM 4.6-6.2 Hemoglobin 16.4 g/dL 14.0-18.0 Hematocrit 46 % 42-52 Mean Corpuscular Volume 90 um3 80-94 Mean Corpuscular Hemoglob 32 pg High 27-31 Mean Corpuscular HGB Cone 36 g/dL 32-36 Redcell Distribution WDTH 14 % 10.5-15 Platelet Count 154 CUMM 150-450 Mean Platelet Volume 8.2 um3 7.4-10.4 64 Manual Differential 12/20/2010 Polysegmented Neutrophil 78 % 38-83 Lymphocyte 8 % Low 25-47 Monocyte 14 % High 0-13 Absolute Neutrophil Count 7.6 RBC Morphology NORMAL Urinalysis 12/20/2010 Ua Color MICHAEL Yellow Appearance-Urine CLEAR Clear Specific [place]-Ur 1.027 1.010-1.030 Esterase-Urine NEGATIVE Negative Nitrite NEGATIVE Negative Dmrxhuqpjrtn-Fa-PAY NEGATIVE Negative Protein-Urine TRACE Negative PH-Urine 6.0 5-9 Blood-Urine NEGATIVE Negative Ketones-Urine 1+ Negative Bilirubin-Ur SEE ICTOTEST Negative Glucose-Urine NEGATIVE Negative Laboratory test finding 12/20/2010 Ictotest NEGATIVE 65 Laboratory test finding 12/01/2010 Folic Acid 8.6 NG/ML 2-16 CBC No Diff 12/01/2010 White Blood Count 6.0 CUMM 4.8-10.8 Red Cell Count 5.17 CUMM 4.6-6.2 Hemoglobin 16.1 g/dL 14.0-18.0 Hematocrit 47 % 42-52 Mean Corpuscular Volume 91 um3 80-94 Mean Corpuscular Hemoglob 31 pg 27-31 Mean Corpuscular HGB Cone 34 g/dL 32-36 Redcell Distribution WDTH 13 % 10.5-15 Platelet Count 186 CUMM 150-450 Mean Platelet Volume 9.5 um3 7.4-10.4 Laboratory test finding 11/22/2010 Vitamin B12 190 pg/mL 180-914 Vitamin D, 25 Hydroxy 11/22/2010 25-Hydroxy Vitamin D2 <4.0 ng/mL () 25-Hydroxy Vitamin D3 23 ng/mL () 25-Hydroxy Vitamin D Total 23 ng/mL () 66 Syphilis Screen 11/22/2010 Syphilis IgG TNP Nonreactive RPR NON-REACTIVE Nonreactive RPR Titer TNP Pediatric/Maternal NO Hemogram 06/25/2010 White Blood Count 8.5 CUMM 4.8-10.8 Red Cell Count 4.99 CUMM 4.6-6.2 Hemoglobin 15.3 g/dL 14.0-18.0 Hematocrit 45 % 42-52 Mean Corpuscular Volume 91 um3 80-94 Mean Corpuscular Hemoglob 31 pg 27-31 Mean Corpuscular HGB Cone 34 g/dL 32-36 Redcell Distribution WDTH 14 % 10.5-15 Platelet Count 186 CUMM 150-450 Mean Platelet Volume 8.7 um3 7.4-10.4 Comp Metabolic Panel 06/25/2010 Sodium 138 mmol/L 135-145 Potassium 3.6 mmol/L 3.5-5.0 Chloride 110 mmol/L 101-111 Co2 (Carbon Dioxide) 24.0 mmol/L 22-32 Anion Gap 4.0 mmol/L 2-11 67 Glucose 123 mg/dL High 70-100 BUN 15 mg/dL 6-24 Creatinine 0.60 mg/dL 0.50-1.40 One Over Creatinine 1.60 BUN/Creatinine Ratio 25.0 High 8-20 Calcium 8.6 mg/dL 8.1-9.9 Total Protein 6.3 GM/DL 6.2-8.1 Albumin 3.9 GM/DL 3.6-5.4 Globulin 2.4 GM/DL 2-4 Albumin/Globulin Ratio 1.6 1-3 Bilirubin Total 0.8 mg/dL 0.4-1.5 68 Alkaline Phosphatase 68 U/L 39-117 Alt (SGPT) 33 U/L 17-63 Ast (Sgot) 20 U/L 12-42 eGFR Non- 138.4 > 60 eGFR 178.0 > 60 69 Laboratory test finding 06/25/2010 Lipase 21 U/L Low 22-51 Urinalysis W/Microscopic 06/25/2010 Ua Color YELLOW Yellow Appearance-Urine CLEAR Clear Specific [place]-Ur 1.015 1.010-1.030 Esterase-Urine TRACE Negative Nitrite NEGATIVE Negative Txaskcrhrzqc-Rj-MGN NEGATIVE Negative Protein-Urine NEGATIVE Negative PH-Urine 6.5 5-9 Blood-Urine 3+ Negative Ketones-Urine NEGATIVE Negative Bilirubin-Ur NEGATIVE Negative Glucose-Urine NEGATIVE Negative WBC-Urine 0-2 0-5 RBC-Urine 5-10 0-2 Bacteria-Urine RARE None Crystals-Urine FEW None 70 Comp Metabolic Panel 06/08/2010 Sodium 141 mmol/L 135-145 Potassium 4.2 mmol/L 3.5-5.0 Chloride 107 mmol/L 101-111 Co2 (Carbon Dioxide) 26.0 mmol/L 22-32 Anion Gap 8.0 mmol/L 2-11 71 Glucose 94 mg/dL 70-100 BUN 15 mg/dL 6-24 Creatinine 0.70 mg/dL 0.50-1.40 One Over Creatinine 1.40 BUN/Creatinine Ratio 21.4 High 8-20 Calcium 9.2 mg/dL 8.1-9.9 Total Protein 6.1 GM/DL Low 6.2-8.1 Albumin 4.0 GM/DL 3.6-5.4 Globulin 2.1 GM/DL 2-4 Albumin/Globulin Ratio 1.9 1-3 Bilirubin Total 0.9 mg/dL 0.4-1.5 72 Alkaline Phosphatase 77 U/L 39-117 Alt (SGPT) 34 U/L 17-63 Ast (Sgot) 23 U/L 12-42 eGFR Non- 123.1 > 60 eGFR 149.0 > 60 73 CBC With Electronic Diff 06/08/2010 White Blood Count 6.3 CUMM 4.8-10.8 Red Cell Count 5.14 CUMM 4.6-6.2 Hemoglobin 16.2 g/dL 14.0-18.0 Hematocrit 47 % 42-52 Mean Corpuscular Volume 90 um3 80-94 Mean Corpuscular Hemoglob 31 pg 27-31 Mean Corpuscular HGB Cone 35 g/dL 32-36 Redcell Distribution WDTH 14 % 10.5-15 Platelet Count 200 CUMM 150-450 Mean Platelet Volume 8.3 um3 7.4-10.4 Gran % 58.3 % 38-83 Lymph % 29.1 % 25-47 Mononuclear % 9.6 % High 1-9 Eosinophil % 2.4 % 0-6 Basophil % 0.6 % 0-2 Abs Lymphs 1.8 1.0-4.8 Abs Mononuclear 0.6 0-0.8 Absolute Neutrophil Count 3.7 1.5-7.7 Abs Eosinophils 0.2 0-0.6 Abs Basophils 0 0-0.2 Laboratory test finding 06/08/2010 TSH 2.60 MIU/ML 0.34-5.60 Laboratory test finding 10/14/2009 PSA Screening 1.34 NG/ML 0-4 74 Glucose 116 mg/dL High 70-100 75 Basic Metabolic Panel 10/14/2009 Sodium 142 mmol/L 135-145 Potassium 4.6 mmol/L 3.5-5.0 Chloride 110 mmol/L 101-111 Co2 (Carbon Dioxide) 27.0 mmol/L 22-32 Anion Gap 5.0 mmol/L 2-11 76 BUN 18 mg/dL 6-24 Creatinine 0.80 mg/dL 0.50-1.40 One Over Creatinine 1.20 BUN/Creatinine Ratio 22.5 High 8-20 Calcium 8.9 mg/dL 8.1-9.9 77 eGFR Non- 105.5 > 60 eGFR 127.7 > 60 78 Lipid Profile (Trig/Chol/HDL) 10/14/2009 Triglyceride 111 mg/dL 40-200 Cholesterol 170 mg/dL Less Than 200 79 High Density Lipoprotein 33 mg/dL Low 40-60 80 Cholesterol/HDL Ratio 5.15 AVERAGE High 1-4.97 Low Density Lipoprotein 115 mg/dL High Less Than 100 81 1 Desirable: <150 Borderline High: 150-199 High: 200-499 Very High: >500 2 Desirable: <200 Borderline High: 200-239 High: >239 3 Low: <40 Desirable: 40-60 High: >60 4 Desirable: <100 Near Optimal: 100-129 Borderline High: 130-159 High: 160-189 Very High: >189 5 Because ethnic data is not always readily available, this report includes an eGFR for both -Americans and non- Americans. The National Kidney Disease Education Program (NKDEP) does not endorse the use of the MDRD equation for patients that are not between the ages of 18 and 70, are , have extremes of body size, muscle mass, or nutritional status, or are non- or non-. According to the National Kidney Foundation, irrespective of diagnosis, the stage of the disease is based on the level of kidney function: Stage Description GFR(mL/min/1.73 m(2)) 1 Kidney damage with normal or decreased GFR 90 2 Kidney damage with mild decrease in GFR 60-89 3 Moderate decrease in GFR 30-59 4 Severe decrease in GFR 15-29 5 Kidney failure <15 (or dialysis) 6 Therapeutic target for the treatment of diabetes mellitus patients is <7% HBA1C, and in selective patients <6.0%. Please refer to [place] [employer] diabetic care guidelines for further information. 7 Normal Range 180 to 914 Indeterminate Range 145 to 180 Deficient Range <145 8 Serum levels of PSA measured using the Rajesh VCNC DXI Hybritech immunoassay should not be interpreted as absolute evidence of the presence or absence of disease. The PSA value should be used in conjunction with other pertinent clinical diagnostic procedures. The values obtained with different assay methods or kits cannot be used interchangeably. 9 SEE RESULT BELOW Name: ROXANA GOODSON : [address]: Abhay Martin MD Acct: [id number] Unit: [id number] AGE: 66 Location: ENDO Re12/05/16 SEX: M Status: REG REF SPEC: [id number] LD: 12/05/16-[address] [facility] [address]: Abhay Martin MD REQ: [id number] RECD: 12/05/16-1041 STATUS: MARTHA BILLINGS DR: Jayesh Sidhu MD _ ORDERED: LEVEL 4/3 FINAL DIAGNOSIS 1. Colon, hepatic flexure, biopsy: -- Tubular adenoma. -- No high grade dysplasia or malignancy. 2. Colon, at 60 cm, biopsy: -- Hyperplastic polyp. 3. Colon, at 50 cm, biopsy: -- Tubular adenoma. -- No high grade dysplasia or malignancy. CLINICAL HISTORY Family history - father POST-OPERATIVE DIAGNOSIS Colonoscopy into cecum, prep good - 4 small polyps removed. Conclusions/Plan : Four polyps removed GROSS DESCRIPTION 1. The specimen is received in formalin labeled, Biopsy Hepatic Flexure Polyps, and consists of two alonso-pink irregular to polypoid soft tissue fragments averaging 0.3 x 0.3 x 0.2 cm, which are submitted entirely in one cassette. 2. The specimen is received in formalin labeled, Biopsy Colon Polyp at 60 cm, and consists of a 0.5 x 0.3 x 0.1 cm alonso-pink irregular to polypoid soft tissue fragment, which is inked and submitted entirely in one cassette. 3. The specimen is received in formalin labeled, Biopsy Colon Polyp at 50 cm, and consists of a 0.5 x 0.4 x 0.1 cm alonso-pink polypoid soft tissue fragment, which is inked, bisected and CONTINUED ON NEXT PAGE * ML=Testing performed at Main Lab DEPARTMENT OF PATHOLOGY, [address] [place] [address] Kin Delgadillo M.D. Director [facility] # [id number] RUN DATE: 12/06/16 [facility] LAB LIVE PAGE 2 Patient: ROXANA GOODSON [id number] (Continued) GROSS DESCRIPTION (Continued) GROSS DESCRIPTION (Continued) submitted entirely in one cassette. Signed (signature on file) Sherly Carney MD 1451 END OF REPORT * ML=Testing performed at Main Lab DEPARTMENT OF PATHOLOGY, [address] [place] [address] Kin Delgadillo M.D. Director [facility] # [id number] 10 Because ethnic data is not always readily available, this report includes an eGFR for both -Americans and non- Americans. The National Kidney Disease Education Program (NKDEP) does not endorse the use of the MDRD equation for patients that are not between the ages of 18 and 70, are , have extremes of body size, muscle mass, or nutritional status, or are non- or non-. According to the National Kidney Foundation, irrespective of diagnosis, the stage of the disease is based on the level of kidney function: Stage Description GFR(mL/min/1.73 m(2)) 1 Kidney damage with normal or decreased GFR 90 2 Kidney damage with mild decrease in GFR 60-89 3 Moderate decrease in GFR 30-59 4 Severe decrease in GFR 15-29 5 Kidney failure <15 (or dialysis) 11 Desirable <150 Borderline high 150-199 High 200-499 Very High >500 12 Desirable <200 Borderline high 200-239 High >239 13 Low <40 Desirable: 40-60 High: >60 14 Desirable: <100 mg/dL Near Optimal: 100-129 mg/dL Borderline High: 130-159 mg/dL High: 160-189 mg/dL Very High: >189 mg/dL 15 FASTING 10 HOUR 16 Therapeutic target for the treatment of diabetes Mellitus patients is <7% HBA1C, and in selective patients <6.0%.Please refer to [place] [employer] Diabetic care guidelines for further information. 17 FASTING 10 HOUR 18 Serum levels of PSA measured using the Rajesh Norris DXI Hybritech immunoassay should not be interpreted as absolute evidence of the presence or absence of disease. The PSA value should be used in conjunction with other pertinent clinical diagnostic procedures. The values obtained with different assay methods or kits cannot be used interchangeably. 19 FASTING 10 HOUR 20 FASTING 10 HOUR 21 Desirable <150 Borderline high 150-199 High 200-499 Very High >500 22 Desirable <200 Borderline high 200-239 High >239 23 Low <40 Desirable: 40-60 High: >60 24 Desirable: <100 mg/dL Near Optimal: 100-129 mg/dL Borderline High: 130-159 mg/dL High: 160-189 mg/dL Very High: >189 mg/dL 25 Because ethnic data is not always readily available, this report includes an eGFR for both -Americans and non- Americans. The National Kidney Disease Education Program (NKDEP) does not endorse the use of the MDRD equation for patients that are not between the ages of 18 and 70, are , have extremes of body size, muscle mass, or nutritional status, or are non- or non-. According to the National Kidney Foundation, irrespective of diagnosis, the stage of the disease is based on the level of kidney function: Stage Description GFR(mL/min/1.73 m(2)) 1 Kidney damage with normal or decreased GFR 90 2 Kidney damage with mild decrease in GFR 60-89 3 Moderate decrease in GFR 30-59 4 Severe decrease in GFR 15-29 5 Kidney failure <15 (or dialysis) 26 Normal Range 180 to 914 Indeterminate Range 145 to 180 Deficient Range <145 27 Serum levels of PSA measured using the Coin DXI Hybritech immunoassay should not be interpreted as absolute evidence of the presence or absence of disease. The PSA value should be used in conjunction with other pertinent clinical diagnostic procedures. The values obtained with different assay methods or kits cannot be used interchangeably. 28 Serum levels of PSA measured using the Rajesh VCNC DXI Hybritech immunoassay should not be interpreted as absolute evidence of the presence or absence of disease. The PSA value should be used in conjunction with other pertinent clinical diagnostic procedures. The values obtained with different assay methods or kits cannot be used interchangeably. 29 Serum levels of PSA measured using the Coin DXI Hybritech immunoassay should not be interpreted as absolute evidence of the presence or absence of disease. The PSA value should be used in conjunction with other pertinent clinical diagnostic procedures. The values obtained with different assay methods or kits cannot be used interchangeably. 30 -- REFERENCE VALUE -- 25-HYDROXY D TOTAL (D2+D3) Optimum levels in the normal population are 25-80 Test Performed by: [address] [address] Tax Commissioner: Willie Ramirez III, M.D. 31 -- REFERENCE VALUE -- 25-HYDROXY D TOTAL (D2+D3) Optimum levels in the normal population are 25-80 Test Performed by: [place] [address] Tax Commissioner: Willie Ramirez III, M.D. 32 HDL Interpretation: Undesirable: High Risk: Less than 40 MG/DL Desirable: Low Risk: Greater than 60 MG/DL 33 LDL Interpretation: Low Risk Optimal Level: LDL Less than 100 MG/DL Near or Above Optimal: LDL 100-129 MG/DL Borderline High Risk: LDL 130-159 MG/DL High Risk: LDL 160-189 MG/DL Very High Risk: LDL Greater than 189 MG/DL 34 Because ethnic data is not always readily available, this report includes an eGFR for both -Americans and non- Americans. The National Kidney Disease Education Program (NKDEP) does not endorse the use of the MDRD equation for patients that are not between the ages of 18 and 70, are , have extremes of body size, muscle mass, or nutritional status, or are non- or non-. According to the National Kidney Foundation, irrespective of diagnosis, the stage of the disease is based on the level of kidney function: Stage Description GFR(mL/min/1.73 m(2)) 1 Kidney damage with normal or decreased GFR 90 2 Kidney damage with mild decrease in GFR 60-89 3 Moderate decrease in GFR 30-59 4 Severe decrease in GFR 15-29 5 Kidney failure <15 (or dialysis) 35 Interpretation: 10-24 (mild to moderate deficiency) -- REFERENCE VALUE -- 25-HYDROXY D TOTAL (D2+D3) Optimum levels in the normal population are 25-80 Test Performed by: [place] [address] Tax Commissioner: Willie Ramirez III, M.D. 36 FASTING 37 Therapeutic target for the treatment of diabetes Mellitus patients is <7% HBA1C, and in selective patients <6.0%.Please refer to [place] [employer] Diabetic care guidelines for further information. 38 Serum levels of PSA measured using the Rajesh VCNC DXI Hybritech immunoassay should not be interpreted as absolute evidence of the presence or absence of disease. The PSA value should be used in conjunction with other pertinent clinical diagnostic procedures. The values obtained with different assay methods or kits cannot be used interchangeably. 39 -- REFERENCE VALUE -- 25-HYDROXY D TOTAL (D2+D3) Optimum levels in the normal population are 25-80 Test Performed by: [address] [address] Tax Commissioner: Willie Ramirez III, M.D. 40 * SERUM LEVELS OF PSA MEASURED USING THE RAJESH NORRIS ACCESS HYBRITECH IMMUNOASSAY SHOULD NOT BE INTERPRETED ABSOLUTE EVIDENCE OF THE PRESENCE OR ABSENCE OF DISEASE. THE PSA VALUE SHOULD BE USED IN CONJUNCTION WITH OTHER PERTINENT CLINICAL DIAGNOSTIC PROCEDURES. The values obtained with different assay methods or kits cannot be used interchangeably. 41 Because ethnic data is not always readily available, this report includes an eGFR for both -Americans and non- Americans. The National Kidney Disease Education Program (NKDEP) does not endorse the use of the MDRD equation for patients that are not between the ages of 18 and 70, are , have extremes of body size, muscle mass, or nutritional status, or are non- or non-. According to the National Kidney Foundation, irrespective of diagnosis, the stage of the disease is based on the level of kidney function: Stage Description GFR(mL/min/1.73 m(2)) 1 Kidney damage with normal or decreased GFR 90 2 Kidney damage with mild decrease in GFR 60-89 3 Moderate decrease in GFR 30-59 4 Severe decrease in GFR 15-29 5 Kidney failure <15 (or dialysis) 42 * SERUM LEVELS OF PSA MEASURED USING THE RAJESH NORRIS ACCESS HYBRITECH IMMUNOASSAY SHOULD NOT BE INTERPRETED ABSOLUTE EVIDENCE OF THE PRESENCE OR ABSENCE OF DISEASE. THE PSA VALUE SHOULD BE USED IN CONJUNCTION WITH OTHER PERTINENT CLINICAL DIAGNOSTIC PROCEDURES. The values obtained with different assay methods or kits cannot be used interchangeably. 43 -- REFERENCE VALUE -- 25-HYDROXY D TOTAL (D2+D3) Optimum levels in the normal population are 25-80 Test Performed by: [facility] Dpt of Lab Med and Pathology [address] [place] [id number] Tax Commissioner: Willie Ramirez III, M.D. 44 VERBAL TO [facility]) ED BY LIZETT at 1359 on 12/22/10. Results read back accurately. RESULTS SENT TO [facility] INFECTION CONTROL NURSE ON 12/22/10 AT 1400 BY LIZETT. VERBAL TO [facility]) ED BY LIZETT at 1359 on 12/22/10. Results read back accurately. RESULTS SENT TO [facility] INFECTION CONTROL NURSE ON 12/22/10 AT 1400 BY LIZETT. REPORTED TO [facility] USING ECLR SYSTEM BY LRU AT 1509 ON 12/22/10. 45 LIQUID NONFORMED 46 CAMPYLOBACTER SPECIES 47 TEST LIMITATIONS: Assay detects elevated levels of lactoferrin released from fecal leukocytes as a marker of intestinal inflammation. The test may not be appropriate in immunocompromised persons. Fecal samples from breast fed infants should not be used with this assay. 48 POSITIVE BY IMMUNOASSAY 49 NEGATIVE BY IMMUNOASSAY NEGATIVE BY IMMUNOASSAY 50 Giardia and cryptosporidium antigen testing performed by immunoassay. If patient is immunocompromised or has traveled to or is from a developing country, a full ova and parasite exam with microscopic (OPMIC) is recommended. All samples will be held one month in case full ova and parasite testing is requested. Contact the Microbiology Department at [phone]. TEST LIMITATIONS: As with all diagnostic procedures, the results obtained should be used in conjunction with other clinical information available the physician. Negative results can occur in samples containing antigen below lower limits of detection of the assay. The use of colonic washes, aspirates or other diluted sample types has not been established and could affect the performance of the assay. Stool samples contaminated with an oily or particulate base (eg. Barium, mineral oil etc.) could interfere with the test and are not recommended. 51 TEST LIMITATIONS: Assay detects elevated levels of lactoferrin released from fecal leukocytes as a marker of intestinal inflammation. The test may not be appropriate in immunocompromised persons. Fecal samples from breast fed infants should not be used with this assay. 52 POSITIVE BY IMMUNOASSAY 53 CAMPYLOBACTER SPECIES 54 LIQUID NONFORMED 55 NEGATIVE FOR THE ENTERIC PATHOGENS - SALMONELLA, SHIGELLA, AEROMONAS, PLESIOMONAS AND YERSINIA. VIBRIO AND E. COLI 0157 NOT ROUTINELY TESTED FOR IN A STOOL CULTURE. PLEASE SUBMIT SAMPLE WITH SPECIFIC REQUEST FOR DESIRED ORGANISM(S). 56 NEGATIVE BY IMMUNOCHROMATOGRAPHIC ASSAY NEGATIVE BY IMMUNOCHROMATOGRAPHIC ASSAY 57 TEST LIMITATIONS: Assay detects elevated levels of lactoferrin released from fecal leukocytes as a marker of intestinal inflammation. The test may not be appropriate in immunocompromised persons. Fecal samples from breast fed infants should not be used with this assay. 58 POSITIVE BY IMMUNOASSAY 59 NO GROWTH AFTER 5 DAYS 60 NO GROWTH AFTER 5 DAYS 61 Anion gap measurement may be of limited value in the presence of any alkalosis, especially in a combined acid base disorder. . 62 A metabolite of Naproxen, O-desmethylnaproxen, has been shown to interfere with the Jendrassik-Bennie method for measuring total bilirubin. Samples from patients who have taken Naproxen have shown spurious elevation in total bilirubin levels. 63 Because ethnic data is not always readily available, this report includes an eGFR for both -Americans and non- Americans. The National Kidney Disease Education Program (NKDEP) does not endorse the use of the MDRD equation for patients that are not between the ages of 18 and 70, are , have extremes of body size, muscle mass, or nutritional status, or are non- or non-. According to the National Kidney Foundation, irrespective of diagnosis, the stage of the disease is based on the level of kidney function: Stage Description GFR(mL/min/1.73 m(2)) 1 Kidney damage with normal or decreased GFR 90 2 Kidney damage with mild decrease in GFR 60-89 3 Moderate decrease in GFR 30-59 4 Severe decrease in GFR 15-29 5 Kidney failure <15 (or dialysis) 64 Neutrophilia % Lymphopenia % 65 ICTOTEST IS A QUALITATIVE CONFIRMATORY TEST FOR BILIRUBIN. 66 Interpretation: 10-24 (mild to moderate deficiency) -- REFERENCE VALUE -- 25-HYDROXY D TOTAL (D2+D3) Optimum levels in the normal population are 25-80 Test Performed by: [facility] of Lab Med and Pathology [address] [place] [address] Tax Commissioner: Willie Ramirez III, M.D. 67 Anion gap measurement may be of limited value in the presence of any alkalosis, especially in a combined acid base disorder. . 68 A metabolite of Naproxen, O-desmethylnaproxen, has been shown to interfere with the Jendrassik-Bennie method for measuring total bilirubin. Samples from patients who have taken Naproxen have shown spurious elevation in total bilirubin levels. 69 Because ethnic data is not always readily available, this report includes an eGFR for both -Americans and non- Americans. The National Kidney Disease Education Program (NKDEP) does not endorse the use of the MDRD equation for patients that are not between the ages of 18 and 70, are , have extremes of body size, muscle mass, or nutritional status, or are non- or non-. According to the National Kidney Foundation, irrespective of diagnosis, the stage of the disease is based on the level of kidney function: Stage Description GFR(mL/min/1.73 m(2)) 1 Kidney damage with normal or decreased GFR 90 2 Kidney damage with mild decrease in GFR 60-89 3 Moderate decrease in GFR 30-59 4 Severe decrease in GFR 15-29 5 Kidney failure <15 (or dialysis) 70 CALCIUM OXALATE 71 Anion gap measurement may be of limited value in the presence of any alkalosis, especially in a combined acid base disorder. . 72 A metabolite of Naproxen, O-desmethylnaproxen, has been shown to interfere with the Jendrassik-Bennie method for measuring total bilirubin. Samples from patients who have taken Naproxen have shown spurious elevation in total bilirubin levels. 73 Because ethnic data is not always readily available, this report includes an eGFR for both -Americans and non- Americans. The National Kidney Disease Education Program (NKDEP) does not endorse the use of the MDRD equation for patients that are not between the ages of 18 and 70, are , have extremes of body size, muscle mass, or nutritional status, or are non- or non-. According to the National Kidney Foundation, irrespective of diagnosis, the stage of the disease is based on the level of kidney function: Stage Description GFR(mL/min/1.73 m(2)) 1 Kidney damage with normal or decreased GFR 90 2 Kidney damage with mild decrease in GFR 60-89 3 Moderate decrease in GFR 30-59 4 Severe decrease in GFR 15-29 5 Kidney failure <15 (or dialysis) 74 * SERUM LEVELS OF PSA MEASURED USING THE RAJESH [employer] [place] ACCESS HYBRITECH IMMUNOASSAY SHOULD NOT BE INTERPRETED ABSOLUTE EVIDENCE OF THE PRESENCE OR ABSENCE OF DISEASE. THE PSA VALUE SHOULD BE USED IN CONJUNCTION WITH OTHER PERTINENT CLINICAL DIAGNOSTIC PROCEDURES. 75 Note change in reference range as of 01/08/08. The change was based on recommendations from the [place] [employer]. 76 Anion gap measurement may be of limited value in the presence of any alkalosis, especially in a combined acid base disorder. . 77 Please note change in reference range effective 07 . 78 Because ethnic data is not always readily available, this report includes an eGFR for both -Americans and non- Americans. The National Kidney Disease Education Program (NKDEP) does not endorse the use of the MDRD equation for patients that are not between the ages of 18 and 70, are , have extremes of body size, muscle mass, or nutritional status, or are non- or non-. According to the National Kidney Foundation, irrespective of diagnosis, the stage of the disease is based on the level of kidney function: Stage Description GFR(mL/min/1.73 m(2)) 1 Kidney damage with normal or decreased GFR 90 2 Kidney damage with mild decrease in GFR 60-89 3 Moderate decrease in GFR 30-59 4 Severe decrease in GFR 15-29 5 Kidney failure <15 (or dialysis) 79 CHOLESTEROL INTERPRETATION: Desirable: Less than 200 MG/DL Borderline-High Risk: 200-239 MG/DL High-Risk: 240 MG/DL and over 80 HDL INTERPRETATION: Undesirable: High Risk: Less than 40 MG/DL Desirable: Low Risk: Greater than 60 MG/DL 81 LDL INTERPRETATION: Low Risk Optimal Level: LDL Less than 100 MG/DL Near or Above Optimal: LDL 100-129 MG/DL Borderline High Risk: LDL 130-159 MG/DL High Risk: LDL 160-189 MG/DL Very High Risk: LDL Greater than 189 MG/DL Procedures Date CPT Code Description Status 03/06/2018 93062 EKG Tracing & Interpretation Completed 12/05/2016 Colonoscopy Completed 10/17/2016 11271 ECHO Transthoracic, Real-Time 2D With Doppler And Color Completed Flow 02/23/2015 21630 Polysomnography Sleep Staging 4+ Parameters W/Cpap Completed 08/24/2011 Colonoscopy Completed 12/08/2010 48869 Admin Of Inj Completed 12/01/2010 25959 Admin Of Inj Completed 11/24/2010 51268 Admin Of Inj Completed 08/23/2006 Colonoscopy Completed Encounters Type Date Location Provider CPT E/M Dx Office Visit 03/12/2018 [facility]ology [facility] Sleep Aurora Flannery, 31442 G47.33 9:00a Services Of Edmund DIAZ RN, POLYSOM TECH-BC E66.9 Z68.41 Office Visit 03/06/2018 11:20a [facility] Internal Jayesh Sidhu, 49081 Z01.818 Medicine - [place] Henrik Avila,FACP M17.11 I10 G47.33 Z23 Office Visit 02/28/2018 1:15p [facility] Caterina Blandon M.D. 15957 M25.561 [facility] M25.562 M25.461 M25.462 M17.0 E66.01 Z68.41 Office Visit 02/20/2018 8:40a [facility] Internal Medicine Johanne Santiago, N.PAngelina 97234 M25.561 - [place] Office Visit 01/14/2018 4:00p [facility] Internal Medicine Jayesh Sidhu, 75045 I10 - [place] Avila,FACP M51.26 Office Visit 09/12/2017 3:40p [facility] Internal Medicine Jayesh Sidhu, 84700 J45.41 - [place] Henrik Avila,FACP Office Visit 08/06/2017 4:20p [facility] Internal Medicine Jayesh Sidhu, 08942 M51.26 - [place] Avila,FACP J01.10 I10 Office Visit 04/09/2017 9:00a Neurosurgery Services Vass[place]os 70725 M47.26 Of [facility] MD Tyree M51.26 E66.8 Office Visit 03/12/2017 9:50a [facility] Internal Medicine Jayesh Sidhu, 94936 M54.42 - [place] Avila,FACP Z23 Office Visit 02/27/2017 9:45a [facility]ology [facility] Sleep Aurora Flannery, 50619 G47.33 Services Of [facility] JOE RN, POLYSOM TECH- E66.9 Z68.42 Office Visit 02/12/2017 4:00p [facility] Internal Medicine Jayesh Sidhu, 62885 M54.42 - [place] Avila,FACP Office Visit 11/06/2016 8:00a [place] [address] M17.12 Of [facility].A[facility]ina M17.11 Office Visit 09/11/2016 4:20p [facility] Internal Medicine Jayesh Sidhu, 32343 R60.1 - D[place] Avila,FACP M25.569 Office Visit 05/08/2016 1:40p [facility] Internal Medicine Jayesh Sidhu, 76666 M54.5 - [place] Avila,FACP Office Visit 04/24/2016 1:00p [facility] Internal Medicine Jayesh Sidhu, 53650 Z00.01 - Dung Avila,FACP I10 J45.909 E66.01 Office Visit 02/10/2016 8:00a [facility]ology [facility] Sleep Aurora Flannery, 95057 G47.33 Services Of [facility] CHRISTOPHER DIAZ, [facility] E66.01 R51 Office Visit 08/05/2015 8:15a [facility]ology [facility] Sleep Aurora Flannery, 84697 G47.33 Services [facility] CHRISTOPHER DIAZ, [facility] E66.01 R05 Office Visit 08/03/2015 3:40p [facility] Internal [place] [address] R05 [place] I10 Office Visit 07/18/2015 4:20p [facility] Internal [place] [address] R05 [place] Office Visit 06/16/2015 10:40a [facility] Internal [place] [address] J01.80 [place] Office Visit 05/31/2015 8:40a [facility] Internal [place] [address] R05 [place] I10 Office Visit 05/17/2015 3:00p [facility] Internal [place] [address] J06.9 [place] J45.909 Office Visit 05/06/2015 8:15a [facility] Sleep Aurora Flannery, 11694 G47.33 Services [facility] CHRISTOPHER DIAZ, [facility] E66.09 Office Visit 03/31/2015 9:40a [facility] Internal [place] [address] Z00.00 [place] I10 F32.8 D51.3 E55.9 J45.20 R73.01 Office Visit 03/18/2015 8:15a [facility] Sleep Aurora Flannery, 85607 G47.33 Services [facility] CHRISTOPHER DIAZ, [facility] Office Visit 01/25/2015 2:45p Pul[facility]ology [facility] Sleep Kwame Licona M.D. 37548 327.23 Services [facility] 278.00 Office Visit 06/10/2014 4:00p [facility] Internal Medicine Jayesh Sidhu, 64297 493.92 - [place] Avila,FACP Office Visit 06/03/2014 3:40p [facility] Internal Medicine Jayesh Sidhu, 47155 493.92 - [place] Avila,FACP Office Visit 12/23/2013 4:40p [facility] Internal Medicine Jayesh Sidhu, 98776 461.1 - Dung Avila,FACP Office Visit 10/06/2013 11:10a [facility] Internal Medicine Jayesh Sidhu, 47608 722.2 - Dung Avila,FACP Office Visit 08/31/2013 2:20p [facility] Internal Medicine Shahid Hamilton, 06569 724.2 - Dung Avila Office Visit 10/30/2012 8:50a [facility] Internal Medicine Jayesh Sidhu, 80745 790.21 - Dung Avila,FACP 268.9 281.1 Office Visit 08/01/2012 4:20p [facility] Internal Medicine Jayesh Sidhu, 97466 281.1 - Dung Avila,FACP 790.21 Office Visit 05/22/2012 3:20p [facility] Internal Medicine Jayesh Sidhu, 68872 V70.0 - Dung Avila,FACP 268.9 281.1 493.00 726.19 790.21 Office Visit 12/21/2011 4:00p [facility] Internal Medicine Jayesh Sidhu, 81328 281.1 - Dung Avila,FACP 268.9 V16.42 V05.8 Office Visit 05/18/2011 9:00a DO Not Use [employer] AT Jayesh Sidhu, 35992 V70.0 Simon Avila,FACP V16.42 493.00 268.9 281.1 726.71 V06.1 Office Visit 01/05/2011 1:00p DO Not Use [employer] AT Jayesh Sidhu, 25894 296.82 Simon Avila,FACP 008.43 281.1 268.9 493.00 Office Visit 12/22/2010 4:00p DO Not Use [employer] AT [facility] Alice Wilson, 13789 008.43 [facility],FACP 009.1 Office Visit 12/20/2010 1:00p DO Not Use [employer] AT Adrián Key M.D. 57444 555.9 [facility] Office Visit 11/22/2010 4:00p DO Not Use [employer] AT [facility] Alice Wilson, 10817 311 [facility],FACP 780.93 Office Visit 06/08/2010 9:40a DO Not Use [employer] AT [facility] 01491 782.3 [facility],FACP 726.71 719.46 Office Visit 10/28/2009 3:00p DO Not Use [employer] AT [facility] Alice Wilson, 01788 V70.0 Aurorasherice Avila,FACP 327.23 278.00 790.21 Office Visit 04/12/2009 4:00p DO Not Use [employer] AT [facility] Alice Wilson, 69879 493.10 [facility] 278.00 327.23 V04.81 v04.81 Plan of Care Future Appointment(s):03/31/2018 3:30 pm - RICA Thurman at [facility]03/13/2019 9:15 am - Aurora Flannery DNP, RN, POLYSOM TECH-BC at [facility]03/31/2018 3:30 pm - Caterina Blandon M.D. at [facility]06/18/2018 3:00 pm - Jayesh Sidhu M.D., FACP at [facility] Internal Medicine - [address]
--- OUTSIDE RECORDS SUMMARY | 2018-03-31 12:01 | XMS REPORT ---
:1950 External Reference #:[id number] Author Organization [facility] Address [address] [place] [address] Phone [phone] Care Team Providers Name Role Phone Jayesh Sidhu MD Primary Care Physician Unavailable Payers Type Date Identification Numbers Payment Provider Subscriber Health Maintenance Policy Number: Medicare Blue Ppo Roxana Giovanny Hamzah Collins (O) [id number] Group Number: [id number] [address] [address] PayID: [id number] [place] [address] Problems Date Description Provider Status Onset: 04/12/2009 [...] 02/10/2016 Headache Aurora Flannery DNP, RN, Active [facility] Onset: 10/18/2016 Pulmonary hypertension due to Jayesh [...] Description Comments Marital Status Lives With 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 Cyanocobalamin 08/01 Active Solution 1000mcg/M 10uni 1 D51.3 L ts milliliter Alice Sidhu, s M.D.,FACP intramuscu lar [id number] Vitamin B-12 12/20 Active Tablets Sub 500mcg [...] s twice a Alice Sidhu, - day M.D.,[facility] 09/19 Prednisone 09/12 Hx Tablets 10mg 28tab [...] s twice a Alice Sidhu, - day M.D.,[facility] 08/16 Valsartan-Hydroch 07/04 Hx Tablets 80-12.5mg 90tab 1 by mouth R0 Javier Helms lorothiazide s every day Alice Sidhu, - M.D.,[facility] 01/14 Azithromycin 04/30 Hx Tablets 250mg 6tabs 2 every Jayesh day for 1 D. Nahum, - day, then M.D.,[facility] 05/07 1 every day Valsartan 04/30 Hx Tablets 80mg 30tab 1 by mouth R0Jayesh s once daily Alice Sidhu, - M.D.,[facility] 07/04 Skelaxin 03/12 Hx Tablets 800mg 30tab 1/-1 by M47.26 s mouth Alice Sidhu, - three M.D.,[facility] 01/14 times day as needed Skelaxin 02/12 Hx Tablets 800mg 30tab 1 by mouth s three Alice Sidhu, - times a M.D.,[facility] 02/26 day needed Furosemide 09/11 Hx Tablets 20mg 10tab take 1 s tablet Alice Sidhu, - every M.D.,[facility] 04/30 Skelaxin 05/08 Hx Tablets 800mg 30tab 1 by mouth s three Alice Sidhu, - times a M.D.,[facility] 09/11 day needed Hydrocodone-Aceta 05/08 Hx Tablets 5-325mg 20tab 1 by mouth Jayesh minophen s every 4-6 D. Nahum, - hours prn. M.D.,[facility] 09/11 Valsartan 08/02 Hx Tablets 80mg 30tab 1 by mouth Jayesh s once daily Alice Sidhu, - M.D.,[facility] 04/30 Prednisone 06/17 Hx Tablets 20mg [...] 28tab one tab s Q12 hrs Adalberto PRODUCER - for 14 Advair HFA 05/31 Hx Aerosol 115-21mcg 12gm 2 puffs Ameya /2015 /Act twice Adalberto PRODUCER - daily 04/24 Cheratussin ac 05/31 Hx Solution 100-10mg/ 473ml 5-10 R05 5ML milliliter Alice Sidhu, - s by mouth M.DAngelina,FACP 04/24 four times a day as needed Clarithromycin 05/17 Hx Tablets 500mg 14tab one tab by Katerin06.9 Jarett s mouth Dwain PRODUCER - twice a 05/26 day x days [...] 5-10 493.92 Jarett 5ML its milliliter Dwain PRODUCER - s by mouth 06/01 four times a day as needed Xopenex 05/17 Hx Nebulizer 0.63mg/3M 72ml Instill to J06.9 Jarett L nebulizer SALLY Prakash - three 04/24 times day as needed for shortness of breath. Benazepril HCL 03/31 Hx Tablets 10mg 30tab 1 by mouth R05 Jarett s every day Prakash, PRODUCER - 08/02 Cheratussin ac 06/10 Hx Solution 100-10mg/ 200un 5-10 493.92 5ML its milliliter Alice Sidhu, - s by mouth M.D.,[facility] 03/31 four times a day as needed Advair HFA 06/10 Hx Aerosol 230-21mcg 2 puff /Act twice a D. Nahum, - day M.D.,[facility] 03/31 Levaquin 06/03 Hx Tablets 500mg 7tabs 1 by mouth 493.92 every day Alice Sidhu, - x 7 days M.D.,[facility] 06/03 Augmentin 06/03 Hx Tablets 875-125mg 14tab by mouth 493.92 s twice a D. Nahum, - day for 1 M.D.,[facility] 06/10 wk (can levaquin and clarithrom ycin) Prednisone 06/03 Hx Tablets 10mg 50tab 60 mg qd s for 3 D. Nahum, - days, then M.D.,[facility] 06/17 by 10 mg every 2 days until stopped Prednisone 06/01 Hx Tablets 20mg 2 tabs qd x 5 days DAngelina Sidhu, - M.D.,[facility] 06/03 Prednisone 06/01 Hx Tablets 20mg 2 tabs qd x 5 days - 06/03 Clarithromycin 12/23 Hx Tablets 500mg 20tab 1 by mouth 493.92 s twice a D. Nahum, - day for 10 M.D.,[facility] Oxycodone-Acetami 10/06 Hx Tablets 7.5-325mg 30tab /2-1 by 722.2 s mouth D. Nahum, - three M.D.,[facility] 12/23 times a day as needed Medrol 09/18 Hx Tablets 4mg 1pak medrol dosepack Alice Sidhu, - as M.D.,[facility] 10/06 Vitamin D-1000 05/22 Hx Tablets 1000Unit 3 tabs E55.9 daily Alice Sidhu, - M.D.,[facility] 04/24 BD 12/05 Hx 3ml 12uni Use For B ts 12 Yarely Zheng Injection [place],[facility] 12/20 Vitamin D 05/18 Hx Capsules 2000Unit 30cap 1 po qd 268.9 s Yarely Zheng M.D.,[facility] 05/22 Vitamin D High 01/05 Hx Capsules 1000Unit 1 po qd 268.9 Yarely Zheng M.D.,[facility] 05/18 Cyanocobalamin 11/24 Hx Solution 1000mcg/M 10uni Inject 1 L ts milliliter Yarely Zheng Intramuscu [place],[facility] 08/01 larly Monthly monthly Bupropion HCL SR 11/22 Hx Tablets ER 100mg 60tab 1 po qam 311 12HR s and q noon Yarely Zheng M.D.,[facility] 01/05 Advair HFA 10/28 Hx Aerosol 115-21mcg 2 puffs /Act qam Yarely Zheng M.D.,[facility] 06/10 Ventolin HFA 04/19 Hx Aerosol 108(90Bas 1mon 2 puffs R05 e) mcg/ac qid prn Yarely Zheng M.D.,[facility] 05/31 Advair Diskus 04/12 Hx Misc 250-50mcg 60uni inhale 1 /Dose ts dose by Yarely Zheng mouth [place],[facility] 10/28 twice a day Clarithromycin 04/12 Hx Tablets 500mg 14tab 1 po bid 493.10 s for 7 days Yarely Zheng M.D.,[facility] 10/28 Cipro Hx ?Dose bid Unknown [...] Tablets 400mg if needed Jayesh /Yarely Rebolledo M.D.,[facility] 03/12 Medications Administered in Office Medication Date Status Form Strength Qnty SIG Indications Ordering Provider B-12 Injection Administered Injection Nurse Visit 011 [place] B-12 Injection Administered Injection Nurse Visit 011 [place] B-12 Injection Administered Injection Nurse Visit 011 [place] Immunizations CPT Code Status Date Vaccine Reaction Lot # [id number] Given 03/06/2018 Fluzone High Dose [id number] Given 04/30/2017 Pneumococcal Conjugate Vaccine 13 Valent [id number] For Intramuscular Use 43929 Given 03/12/2017 Influenza Virus Vaccine, Quadrivalent, [id number] Split, Preservative Free [id number] Given 03/25/2016 Flu Vaccine NOS 70820 Given 03/22/2016 Influenza Virus Vaccine, Quadrivalent, Split Virus, [place] Use 30791 Given 04/08/2014 Flu Vaccine Split Virus Preservative [id number] Free For Indiv 3Yr Older Q2038 Given 06/04/2013 Fluzone Vaccine Q2037 Given 03/26/2012 Fluvirin Im 3Yrs And Older Q2037 Given 03/26/2012 Fluvirin Im 3Yrs And Older [id number] 99686 Given 12/21/2011 Zoster (Zostavax) [id number] 27645 Given 05/18/2011 Tdap - Tetanus/Diptheria/Acellular {} { [id number] Pertussis 92217 Given 03/30/2010 Pneumonia Vaccine [id number] 29307 Given 03/30/2010 Influenza Virus 3Yrs & Over [id number] 51512 Given 04/12/2009 Influenza Virus Vaccine, Pandemic [id number] Formulation 48491 Given 04/12/2009 Administration Swine Flu Shot Vital Signs Date Vital Result Comment 03/06/2018 Height 72 inches 6'0" Weight 328.00 [...] Test Date Test Result H/L Range Note Laboratory test 04/09/2017 Hemoglobin A1c (Glyco 5.8 % High 4.0-5.6 1 finding HGB) CBC Auto Diff 04/09/2017 White Blood [...] finding 04/09/2017 Vitamin B12 416 pg/mL 180-914 2 Basic Metabolic Panel 04/09/2017 Sodium 140 mmol/L 133-145 Potassium 4.3 mmol/L 3.5-5.0 Chloride 106 mmol/L 101-111 Co2 Carbon Dioxide 27 mmol/L 22-32 Anion Gap 7 mmol/L 2-11 Glucose 113 mg/dL High 70-100 Blood Urea Nitrogen 24 mg/dL 6-24 Creatinine 0.82 mg/dL 0.67-1.17 BUN/Creatinine Ratio 29.3 High 8-20 Calcium 9.1 mg/dL 8.6-10.3 Egfr Non- 94.3 >60 Egfr 121.3 >60 3 Lipid Profile (Trig/Chol/HDL) 04/09/2017 Triglycerides 117 mg/dL 4 Cholesterol 173 mg/dL 5 HDL Cholesterol 38.0 mg/dL 6 LDL Cholesterol 112 mg/dL 7 Laboratory test finding 03/15/2017 PSA Screening [...] Non- 97.3 >60 Egfr 125.2 >60 10 Laboratory test finding 04/25/2016 Hepatitis C Antibody Nonreactive Nonreactive 11 Hemoglobin A1c (Glyco HGB) 6.0 % Less than 6.0 12 Vitamin D Total 25(Oh) 35.9 ng/mL 30-50 13 Lipid Profile (Trig/Chol/HDL) 04/25/2016 Triglycerides 127 mg/dL 14 Cholesterol 162 mg/dL 15 HDL Cholesterol 37.0 mg/dL 16 LDL Cholesterol 100 mg/dL 17 Laboratory test finding 03/12/2016 PSA Screening 1.045 ng/mL 0-4.0 18 Laboratory test finding 04/01/2015 Vitamin B12 475 pg/mL 180-914 19, 20 CBC Auto Diff 04/01/2015 White Blood Count [...] Nucleated Red Blood Cells % 0.1 19 Basic Metabolic Panel 04/01/2015 Sodium 141 mmol/L [...] 105.2 >60 19 Egfr 135.3 >60 19, 21 Lipid Profile (Trig/Chol/HDL) 04/01/2015 Triglycerides 118 mg/dL 19, 22 Cholesterol 139 mg/dL 19, 23 HDL Cholesterol 33.3 mg/dL 19, 24 LDL Cholesterol 82 mg/dL 19, 25 Laboratory test finding 04/01/2015 Vitamin D Total 25(Oh) 21.9 ng/mL Low 30-50 19, 26 Laboratory test finding 03/11/2015 PSA [...] finding 08/15/2012 Vitamin B12 604 pg/mL 180-914 Laboratory test finding 05/17/2012 Vitamin B12 664 pg/mL 180-914 32 Hemoglobin A1c 6.3 % High Less than 6.0 33 PSA Diagnostic 1.6 ng/mL 0-4.0 34 Vitamin D,25 Hydroxy 05/17/2012 25-Hydroxy Vitamin D2 <4.0 ng/mL 25-Hydroxy Vitamin D3 24 ng/mL 25-Hydroxy Vitamin D Total 24 ng/mL 35 BMP Basic Metabolic Panel 05/17/2012 Sodium 140 mmol/L 133-145 Potassium 4.3 mmol/L 3.5-5.0 Chloride 109 mmol/L 101-111 Co2 Carbon Dioxide 28.0 mmol/L 22-32 Anion Gap 3.0 mmol/L 2-11 Glucose 122 mg/dL High 70-100 Blood Urea Nitrogen 17 mg/dL 6-24 Creatinine 0.70 mg/dL 0.50-1.40 BUN/Creatinine Ratio 24.3 High 8-20 Calcium 8.9 mg/dL 8.1-9.9 Egfr Non- 115.0 >60 Egfr 147.9 >60 36 Lipid Panel 05/17/2012 Triglycerides 99 mg/dL 40-200 Cholesterol 156 mg/dL Less than 200 HDL Cholesterol 33 mg/dL Low 40-60 37 Cholesterol/HDL Ratio 4.7 Average High 1-4.44 LDL Cholesterol 103.2 mg/dL High Less Than 100 38 Laboratory test finding 12/14/2011 PSA 2.50 NG/ML 0-4 39 Vitamin D,25 Hydroxy 12/14/2011 25-Hydroxy Vitamin D2 <4.0 ng/mL () 25-Hydroxy Vitamin D3 32 ng/mL () 25-Hydroxy Vitamin D Total 32 ng/mL () 40 Laboratory test finding 12/14/2011 Vitamin B12 440 pg/mL 180-914 Laboratory test finding 07/06/2011 BUN 18 mg/dL [...] Description RENATE 44, 54 Stool Cult Sensitivity NF 44, 55 Shiga Toxin 1 And 2 [...] Color MICHAEL Yellow Appearance-Urine CLEAR Clear Specific [employer] [place]-Ur 1.027 1.010-1.030 Esterase-Urine NEGATIVE Negative Nitrite NEGATIVE Negative Uleqaneuhwfb-Ek-RUN NEGATIVE Negative Protein-Urine TRACE Negative PH-Urine 6.0 [...] Color YELLOW Yellow Appearance-Urine CLEAR Clear Specific [employer] [place]-Ur 1.015 1.010-1.030 Esterase-Urine TRACE Negative Nitrite NEGATIVE Negative Trrkaxutwmzj-Ka-PDJ NEGATIVE Negative Protein-Urine NEGATIVE Negative PH-Urine 6.5 5-9 Blood-Urine 3+ Negative Ketones-Urine NEGATIVE Negative Bilirubin-Ur NEGATIVE Negative Glucose-Urine NEGATIVE Negative WBC-Urine 0-2 0-5 RBC-Urine 5-10 0-2 Bacteria-Urine RARE None Crystals-Urine FEW None 70 Laboratory test finding 06/08/2010 TSH 2.60 MIU/ML 0.34-5.60 CBC With Electronic Diff 06/08/2010 White Blood [...] Eosinophils 0.2 0-0.6 Abs Basophils 0 0-0.2 Comp Metabolic Panel 06/08/2010 Sodium 141 mmol/L [...] > 60 eGFR 149.0 > 60 73 Laboratory test finding 10/14/2009 PSA Screening 1.34 [...] mg/dL High Less Than 100 81 1 Therapeutic target for the treatment of diabetes mellitus patients is <7% HBA1C, and in selective patients <6.0%. Please refer to [employer] diabetic care guidelines for further information. 2 Normal Range 180 to 914 Indeterminate Range 145 to 180 Deficient Range <145 3 Because ethnic data is not always readily [...] 15-29 5 Kidney failure <15 (or dialysis) 4 Desirable: <150 Borderline High: 150-199 High: 200-499 Very High: >500 5 Desirable: <200 Borderline High: 200-239 High: >239 6 Low: <40 Desirable: 40-60 High: >60 7 Desirable: <100 Near Optimal: 100-129 Borderline High: 130-159 High: 160-189 Very High: >189 8 Serum levels of PSA measured using the Rajesh [employer] Sparrow DXI Hybritech immunoassay should not be interpreted as absolute evidence of the presence or absence of disease. The PSA value should be used in conjunction with other pertinent clinical diagnostic procedures. The values obtained with different assay methods or kits cannot be used interchangeably. 9 SEE RESULT BELOW Name: ROXANA GOODSON : [address]: Abhay Martin MD Acct: [id number] Unit: [id number] AGE: 66 Location: ENDO Re12/05/16 SEX: M Status: REG REF SPEC: [id number] LD: 12/05/16-1008 [facility] [address]: Abhay Martin MD REQ: [id number] RECD: 12/05/16-1041 STATUS: MARTHA BILLINGS DR: Jayesh [...] performed at Main Lab DEPARTMENT OF PATHOLOGY, [address] [place] [address] Kin Delgadillo M.D. Director [facility] # [id number] RUN DATE: 12/06/16 [facility] LAB LIVE PAGE 2 Patient: ROXANA GOODSON [id number] (Continued) GROSS DESCRIPTION (Continued) GROSS DESCRIPTION (Continued) submitted entirely in one cassette. Signed (signature on file) Sherly Carney MD 1451 END OF REPORT * ML=Testing performed at Main Lab DEPARTMENT OF PATHOLOGY, [address] [place] [address] Kin Delgadillo M.D. Director [facility] # [id number] 10 Because ethnic data is not always [...] 5 Kidney failure <15 (or dialysis) 11 FASTING 10 HOUR 12 Therapeutic target for the treatment of diabetes Mellitus patients is <7% HBA1C, and in selective patients <6.0%.Please refer to [employer] Diabetic care guidelines for further information. 13 FASTING 10 HOUR 14 Desirable <150 Borderline high 150-199 High 200-499 Very High >500 15 Desirable <200 Borderline high 200-239 High >239 16 Low <40 Desirable: 40-60 High: >60 17 Desirable: <100 mg/dL Near Optimal: 100-129 mg/dL Borderline High: 130-159 mg/dL High: 160-189 mg/dL Very High: >189 mg/dL 18 Serum levels of PSA measured using the Rajesh Tyler DXI Hybritech immunoassay should not be interpreted as absolute evidence of the presence or absence of disease. The PSA value should be used in conjunction with other pertinent clinical diagnostic procedures. The values obtained with different assay methods or kits cannot be used interchangeably. 19 FASTING 10 HOUR 20 Normal Range 180 to 914 Indeterminate Range 145 to 180 Deficient Range <145 21 Because ethnic data is not always readily [...] 15-29 5 Kidney failure <15 (or dialysis) 22 Desirable <150 Borderline high 150-199 High 200-499 Very High >500 23 Desirable <200 Borderline high 200-239 High >239 24 Low <40 Desirable: 40-60 High: >60 25 Desirable: <100 mg/dL Near Optimal: 100-129 mg/dL Borderline High: 130-159 mg/dL High: 160-189 mg/dL Very High: >189 mg/dL 26 FASTING 10 HOUR 27 Serum levels of PSA measured using the [employer] DXI Hybritech immunoassay should not be interpreted as absolute evidence of the presence or absence of disease. The PSA value should be used in conjunction with other pertinent clinical diagnostic procedures. The values obtained with different assay methods or kits cannot be used interchangeably. 28 Serum levels of PSA measured using the Rajesh Smart Sparrow DXI Hybritech immunoassay should not be interpreted as absolute evidence of the presence or absence of disease. The PSA value should be used in conjunction with other pertinent clinical diagnostic procedures. The values obtained with different assay methods or kits cannot be used interchangeably. 29 Serum levels of PSA measured using the Rajesh Smart Sparrow DXI Hybritech immunoassay should not be interpreted [...] normal population are 25-80 Test Performed by: [place] [address] Transplant Worker: Willie Ramirez III, M.D. 31 -- REFERENCE VALUE -- 25-HYDROXY D TOTAL (D2+D3) Optimum levels in the normal population are 25-80 Test Performed by: [place] [address] Transplant Worker: Willie Ramirez III, M.D. 32 FASTING 33 Therapeutic target for the treatment of diabetes Mellitus patients is <7% HBA1C, and in selective patients <6.0%.Please refer to [place] [employer] Diabetic care guidelines for further information. 34 Serum levels of PSA measured using the Rajesh Smart Sparrow DXI Hybritech immunoassay should not be interpreted as absolute evidence of the presence or absence of disease. The PSA value should be used in conjunction with other pertinent clinical diagnostic procedures. The values obtained with different assay methods or kits cannot be used interchangeably. 35 Interpretation: 10-24 (mild to moderate deficiency) -- REFERENCE VALUE -- 25-HYDROXY D TOTAL (D2+D3) Optimum levels in the normal population are 25-80 Test Performed by: [address] [address] Transplant Worker: Willie Ramirez III, M.D. 36 Because ethnic data is not always readily [...] 15-29 5 Kidney failure <15 (or dialysis) 37 HDL Interpretation: Undesirable: High Risk: Less than 40 MG/DL Desirable: Low Risk: Greater than 60 MG/DL 38 LDL Interpretation: Low Risk Optimal Level: LDL Less than 100 MG/DL Near or Above Optimal: LDL 100-129 MG/DL Borderline High Risk: LDL 130-159 MG/DL High Risk: LDL 160-189 MG/DL Very High Risk: LDL Greater than 189 MG/DL 39 * SERUM LEVELS OF PSA MEASURED USING THE RAJESH [employer] ACCESS HYBRITECH IMMUNOASSAY SHOULD NOT BE INTERPRETED ABSOLUTE EVIDENCE OF THE PRESENCE OR ABSENCE OF DISEASE. THE PSA VALUE SHOULD BE USED IN CONJUNCTION WITH OTHER PERTINENT CLINICAL DIAGNOSTIC PROCEDURES. The values obtained with different assay methods or kits cannot be used interchangeably. 40 -- REFERENCE VALUE -- 25-HYDROXY D TOTAL (D2+D3) Optimum levels in the normal population are 25-80 Test Performed by: [address] [address] Transplant Worker: Willie Ramirez III, M.D. 41 Because ethnic data is not always [...] LEVELS OF PSA MEASURED USING THE RAJESH [employer] ACCESS HYBRITECH IMMUNOASSAY SHOULD NOT BE INTERPRETED ABSOLUTE EVIDENCE OF THE PRESENCE OR ABSENCE OF DISEASE. THE PSA VALUE SHOULD BE USED IN CONJUNCTION WITH OTHER PERTINENT CLINICAL DIAGNOSTIC PROCEDURES. The values obtained with different assay methods or kits cannot be used interchangeably. 43 -- REFERENCE VALUE -- 25-HYDROXY D TOTAL (D2+D3) Optimum levels in the normal population are 25-80 Test Performed by: [facility] Dpt of Lab Med and Pathology [address] [place] [address] Transplant Worker: Willie Ramirez III, M.D. 44 VERBAL TO [facility]) ED BY LIZETT at 1359 on 12/22/10. Results read back accurately. RESULTS SENT TO [facility] INFECTION CONTROL NURSE ON 12/22/10 AT 1400 BY LIZETT. VERBAL TO [facility]) ED BY LIZETT at 1359 on 12/22/10. Results read back accurately. RESULTS SENT TO [facility] INFECTION CONTROL NURSE ON 12/22/10 AT 1400 BY LIZETT. REPORTED TO [facility] USING ECLR SYSTEM BY U AT 1509 ON 12/22/10. 45 LIQUID NONFORMED [...] is requested. Contact the Microbiology Department at [phone]. TEST LIMITATIONS: As with all diagnostic procedures, [...] normal population are 25-80 Test Performed by: [facility] Dpt of Lab Med and Pathology [address] [place] [address] Transplant Worker: Willie Ramirez III, M.D. 67 Anion gap measurement may be of limited value in the presence of any alkalosis, especially in a combined acid base disorder. . 68 A metabolite of Naproxen, O-desmethylnaproxen, has been shown to interfere with the Jendrassik-Loyal method for measuring total bilirubin. Samples from [...] SERUM LEVELS OF PSA MEASURED USING THE [employer] ACCESS HYBRITECH IMMUNOASSAY SHOULD NOT BE INTERPRETED ABSOLUTE EVIDENCE OF THE PRESENCE OR ABSENCE OF DISEASE. THE PSA VALUE SHOULD BE USED IN CONJUNCTION WITH OTHER PERTINENT CLINICAL DIAGNOSTIC PROCEDURES. 75 Note change in reference range as of 01/08/08. The change was based on recommendations from the [place] [employer]. 76 Anion gap measurement may [...] Procedures Date CPT Code Description Status 03/06/2018 05084 EKG Tracing & Interpretation Completed 12/05/2016 Colonoscopy Completed 10/17/2016 08910 ECHO Transthoracic, Real-Time 2D With Doppler And Color Completed Flow 02/23/2015 62607 Polysomnography Sleep Staging 4+ Parameters W/Cpap Completed 08/24/2011 Colonoscopy Completed 12/08/2010 99395 Admin Of Inj Completed 12/01/2010 39403 Admin Of Inj Completed 11/24/2010 12054 Admin Of Inj Completed 08/23/2006 Colonoscopy Completed Encounters Type Date Location Provider CPT E/M Dx Office Visit 02/20/2018 [facility] Johanne Santiago, N.P. 34946 M25.561 8:40a - Dung Office Visit 01/14/2018 [facility] Jayesh Sidhu, 81122 I10 4:00p - Dung Avila,FACP M51.26 Office Visit 09/12/2017 3:40p [facility] Jayesh Sidhu, 63009 J45.41 - Jitendra Chester M.D.,FACP Office Visit 08/06/2017 4:20p [facility] Jayesh Sidhu, 46131 M51.26 - Dung Avila,FACP J01.10 I10 Office Visit 04/09/2017 9:00a Neurosurgery Services [place] 33994 M47.26 Of Edmund Clements MD M51.26 E66.8 Office Visit 03/12/2017 9:50a [facility] Jayesh Sidhu, 52920 M54.42 - Dung Avila,FACP Z23 Office Visit 02/27/2017 9:45a Pulmonology And Sleep Aurora Flannery, 55014 G47.33 Services Of [facility] CHRISTOPHER DIAZ, [facility] E66.9 Z68.42 Office Visit 02/12/2017 4:00p [facility] Jayesh Sidhu, 58311 M54.42 - Dung Avila,FACP Office Visit 11/06/2016 8:00a [place] [address] M17.12 Of [place] M17.11 Office Visit 09/11/2016 4:20p [facility] Jayesh Sidhu, 00399 R60.1 - Dung Avila,FACP M25.569 Office Visit 05/08/2016 1:40p [facility] Jayesh Sidhu, 70860 M54.5 - Dung Avila,FACP Office Visit 04/24/2016 1:00p [facility] Jayesh Sidhu, 65804 Z00.01 - Dung Avila,FACP I10 J45.909 E66.01 Office Visit 02/10/2016 8:00a Pulmonology And Sleep Aurora Flannery, 15998 G47.33 Services Of [facility] CHRISTOPHER DIAZ, [facility] E66.01 R51 Office Visit 08/05/2015 8:15a Pulmonology And Sleep Aurora Flannery, 40926 G47.33 Services Of [facility] CHRISTOPHER DIAZ, [facility] E66.01 R05 Office Visit 08/03/2015 3:40p [facility] [place] [address] R05 [place] I10 Office Visit 07/18/2015 4:20p [facility] [place] [address] R05 [place] Office Visit 06/16/2015 10:40a [facility] [place] [address] J01.80 [place] Office Visit 05/31/2015 8:40a [facility] - Ameya Glover, PRODUCER 81282 R05 [place] I10 Office Visit 05/17/2015 3:00p [facility] - Jarett Prakash, SALLY 33167 J06.9 [place] J45.909 Office Visit 05/06/2015 8:15a Pulmonology And Sleep Aurora Flannery, 89359 G47.33 Services [facility] CHRISTOPHER DIAZ, [facility] E66.09 Office Visit 03/31/2015 9:40a [facility] Internal Medicine - Jarett Prakash, PRODUCER 01808 Z00.00 [place] I10 F32.8 D51.3 E55.9 J45.20 R73.01 Office Visit 03/18/2015 8:15a Pulmonology And Sleep Aurora Flannery, 26549 G47.33 [facility] [facility], [facility] Office Visit 01/25/2015 2:45p Pulmonology And Sleep Kwame Licona M.D. 28857 327.23 [facility] 278.00 Office Visit 06/10/2014 4:00p [facility] Internal Medicine Jayesh Sidhu, 95948 493.92 - Dung Avila,FACP Office Visit 06/03/2014 3:40p [facility] Internal Medicine Jayesh Sidhu, 19112 493.92 - Dung Avila,FACP Office Visit 12/23/2013 4:40p [facility] Medicine Jayesh Sidhu, 17813 461.1 - Dung Avila,FACP Office Visit 10/06/2013 11:10a [facility] Internal Medicine Jayesh Sidhu, 66099 722.2 - Dung Avila,FACP Office Visit 08/31/2013 2:20p [facility] Internal Medicine Shahid Hamilton, 03456 724.2 - Dung Avila Office Visit 10/30/2012 8:50a [facility] Internal Medicine Jayesh Sidhu, 48189 790.21 - Dung Avila,FACP 268.9 281.1 Office Visit 08/01/2012 4:20p [facility] Internal Medicine Jayesh Sidhu, 93514 281.1 - Dung Avila,FACP 790.21 Office Visit 05/22/2012 3:20p Customs Compliance Manager Internal Medicine [facility] [place], 66083 V70.0 - Dung Avila,FACP 268.9 281.1 493.00 726.19 790.21 Office Visit 12/21/2011 4:00p Customs Compliance Manager Internal Medicine [facility] Alice Sidhu, 52609 281.1 - Dung Avila,FACP 268.9 V16.42 V05.8 Office Visit 05/18/2011 9:00a DO Not Use Customs Compliance Manager AT [facility] [address] V70.0 Simon Avila,FACP V16.42 493.00 268.9 281.1 726.71 V06.1 Office Visit 01/05/2011 1:00p DO Not Use Customs Compliance Manager AT [facility] Alice [place], 19279 296.82 Simon Avila,FACP 008.43 281.1 268.9 493.00 Office Visit 12/22/2010 4:00p DO Not Use Customs Compliance Manager AT [facility] Alice [place], 79181 008.43 Vancourtsherice Avila,FACP 009.1 Office Visit 12/20/2010 1:00p DO Not Use Customs Compliance Manager AT Adrián Key M.D. 25313 555.9 [facility] Office Visit 11/22/2010 4:00p DO Not Use Customs Compliance Manager AT [facility] Alice [place]angburn, 88978 311 Simon Avila,FACP 780.93 Office Visit 06/08/2010 9:40a DO Not Use Customs Compliance Manager AT [facility] 44247 782.3 Simon Avila,FACP 726.71 719.46 Office Visit 10/28/2009 3:00p DO Not Use Customs Compliance Manager AT [facility], 23180 V70.0 Simon Avila,FACP 327.23 278.00 790.21 Office Visit 04/12/2009 4:00p DO Not Use Customs Compliance Manager AT [facility] Alice Pangburn, 13914 493.10 Simon Avila,FACP 278.00 327.23 V04.81 v04.81 [facility] Future Appointment(s):03/31/2018 3:30 pm - Caterina Blandon M.D. at [facility]03/26/2018 9:30 am - Caterina Blandon M.D. at [facility]06/18/2018 3:00 pm - Jayesh Sidhu M.D.,FACP at [facility] Internal Medicine - [address]03/12/2018 9:00 am - Aurora Flannery DNP, RN, VP HOME HEALTH- [place] at [facility]03/06/2018 - Jayesh Sidhu M.D., FACPZ01.818 Encounter for other preprocedural examinationComments:Patient is at low risk of cardiac or pulmonary complications of planned moderate risk surgery. Advised to proceed.M17.11 Unilateral primary osteoarthritis, right kneeComments:Complete surgery with Dr. Blandon as planned.I10 Essential (primary) hypertensionComments:You are meeting target blood pressure. Continue low salt diet and current medicationAerobic exercise 30 minutes 5 times per week should improve blood pressure.Goals:Blood pressure goal <140/90 in general. Blood pressure goal <150/90 in people older than 75. Blood pressure goal <130/ 85 in diabetic patients. Goal BMI is less than 25.G47.33 Obstructive sleep apnea (adult) (pediatric)Comments:Continue to use CPAP. This can prevent heart arrhythmia, and stroke. See sleep clinic if your weightchanges dramatically, or if you have poor sleep repeatedly.
--- OUTSIDE RECORDS SUMMARY | 2018-03-31 12:01 | XMS REPORT ---
:1950 External Reference #:[id number] Author Organization [facility] Address [address] [place] [address] Phone [phone] Care Team Providers Name Role Phone Jayesh Sidhu MD Primary Care Physician Unavailable Payers Type Date Identification Numbers Payment Provider Subscriber Health Maintenance Policy Number: Medicare Blue Ppo Roxana Giovanny Hamzah Collins (O) [id number] Group Number: [id number] [address] [address] PayID: [id number] [place] [address] Problems Date Description Provider Status Onset: 04/12/2009 Intrinsic asthma without status Jayesh Sidhu M.D., FACP Active asthmaticus Onset: 04/12/2009 Obesity Jayesh Sidhu M.D.,FACP Active Onset: 04/12/2009 Obstructive sleep apnea syndrome Jayesh Sidhu M.D., FACP Active Onset: 10/28/2009 Impaired fasting glycaemia Jayesh Sidhu M.D.,FACP Active Onset: 01/05/2011 Atypical depressive disorder Jayesh Sidhu M.D.,FACP Active Onset: 01/05/2011 Cobalamin deficiency Jayesh Siduh M.D.,FACP Active Onset: 01/05/2011 Vitamin D deficiency Jayesh Sidhu M.D.,FACP Active Onset: 05/18/2011 Family history of prostate Jayesh Sidhu M.D.,FACP Active cancer Onset: 05/31/2015 Essential hypertension Ameya Glover NP Active Onset: 02/10/2016 Headache Aurora Flannery DNP, RN, Active METER REPAIRER-BC Onset: 10/18/2016 Pulmonary hypertension due to Jayesh [...] Description Comments Marital Status Lives With Occupation [employer] 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 Nahum, hours prn. M.D.,FACP Blood Pressure 08/02 Active Misc 1unit Check BP R05 Ameya Monitor Digital /2015 s 1-2 times Adalberto, OIL DISTRIBUTOR TENDER weekly Advair HFA 06/16 Active Aerosol 230-21mcg 12gm 2 puffs J01.90 /2015 /Act twice Alice Sidhu, daily M.D.,FACP Proair HFA 05/31 Active Aerosol 108(90Bas 1unit take 2 R05 e) s puffs Alice Sidhu, mcg/Act every 4-6 M.D.,FACP hours as needed for shortness of breath. Cyanocobalamin 08/01 Active Solution 1000mcg/M 10uni 1 D51.3 L ts milliliter Alice Sidhu, s M.D.,FACP intramuscu lar [id number] Vitamin B-12 12/20 Active Tablets Sub 500mcg [...] s twice a Alice Sidhu, - day [facility] 09/19 Prednisone 09/12 Hx Tablets [...] s twice a Alice Sidhu, - day [facility] 08/16 Valsartan-Hydroch 07/04 Hx Tablets 80-12.5mg 90tab 1 by mouth R0 Javier Helms lorothiazide s every day Alice Sidhu, - M.D.,[facility] 01/14 Azithromycin 04/30 Hx Tablets 250mg 6tabs 2 every Jayesh day for 1 D. Nahum, - day, then M.D.,[facility] 05/07 1 every day Valsartan 04/30 Hx Tablets 80mg 30tab 1 by mouth R0Jayesh s once daily Alice Sidhu, - M.D.,[facility] 07/04 Skelaxin 03/12 Hx Tablets 800mg 30tab 1/-1 by M47.26 s mouth Alice Sidhu, - three M.D.,[facility] 01/14 times day as needed Skelaxin 02/12 Hx Tablets 800mg 30tab 1 by mouth s three Alice Sidhu, - times a M.D.,[facility] 02/26 day needed Furosemide 09/11 Hx Tablets 20mg 10tab take 1 s tablet Alice Sidhu, - every M.D.,[facility] 04/30 Skelaxin 05/08 Hx Tablets 800mg 30tab 1 by mouth s three Alice Sidhu, - times a M.D.,[facility] 09/11 day needed Hydrocodone-Aceta 05/08 Hx Tablets 5-325mg 20tab 1 by mouth Jayesh minophen s every 4-6 D. Nahum, - hours prn. M.D.,[facility] 09/11 Valsartan 08/02 Hx Tablets 80mg 30tab 1 by mouth Jayesh s once daily Alice Sidhu, - M.D.,[facility] 04/30 Prednisone 06/17 Hx Tablets 20mg 10tab [...] 28tab one tab s Q12 hrs Adalberto OIL DISTRIBUTOR TENDER - for 14 Advair HFA 05/31 Hx Aerosol 115-21mcg 12gm 2 puffs Ameya /2015 /Act twice Adalberto OIL DISTRIBUTOR TENDER - daily 04/24 Cheratussin ac 05/31 Hx Solution 100-10mg/ 473ml 5-10 R05 5ML milliliter Alice Sidhu, - s by mouth M.DAngelian,FACP 04/24 four times a day as needed Clarithromycin 05/17 Hx Tablets 500mg 14tab one tab by Katerin06.9 Jarett s mouth Dwain OIL DISTRIBUTOR TENDER - twice a 05/26 day x days [...] 5-10 493.92 Jarett 5ML its milliliter Dwain OIL DISTRIBUTOR TENDER - s by mouth 06/01 four times a day as needed Xopenex 05/17 Hx Nebulizer 0.63mg/3M 72ml Instill to J06.9 Jarett L nebulizer SALLY Prakash - three 04/24 times day as needed for shortness of breath. Benazepril HCL 03/31 Hx Tablets 10mg 30tab 1 by mouth R05 Jarett s every day Prakash, OIL DISTRIBUTOR TENDER - 08/02 Cheratussin ac 06/10 Hx Solution 100-10mg/ 200un 5-10 493.92 5ML its milliliter Alice Sidhu, - s by mouth M.D.,[facility] 03/31 four times a day as needed Advair HFA 06/10 Hx Aerosol 230-21mcg 2 puff /Act twice a D. Nahum, - day M.D.,[facility] 03/31 Levaquin 06/03 Hx Tablets 500mg 7tabs 1 by mouth 493.92 every day Alice Sidhu, - x 7 days M.D.,[facility] 06/03 Augmentin 06/03 Hx Tablets 875-125mg 14tab by mouth 493.92 s twice a D. Nahum, - day for 1 M.D.,[facility] 06/10 wk (can levaquin and clarithrom ycin) Prednisone 06/03 Hx Tablets 10mg 50tab 60 mg qd s for 3 D. Nahum, - days, then M.D.,[facility] 06/17 by 10 mg every 2 days until stopped Prednisone 06/01 Hx Tablets 20mg 2 tabs qd x 5 days DAngelina Sidhu, - M.D.,[facility] 06/03 Prednisone 06/01 Hx Tablets 20mg 2 tabs qd x 5 days - 06/03 Clarithromycin 12/23 Hx Tablets 500mg 20tab 1 by mouth 493.92 s twice a D. Nahum, - day for 10 M.D.,[facility] Oxycodone-Acetami 10/06 Hx Tablets 7.5-325mg 30tab /2-1 by 722.2 s mouth D. Nahum, - three M.D.,[facility] 12/23 times a day as needed Medrol 09/18 Hx Tablets 4mg 1pak medrol dosepack Alice Sidhu, - as M.D.,[facility] 10/06 Vitamin D-1000 05/22 Hx Tablets 1000Unit 3 tabs E55.9 daily Alice Sidhu, - M.D.,[facility] 04/24 BD 12/05 Hx 3ml 12uni Use For B ts 12 Yarely Zheng Injection [place],[facility] 12/20 Vitamin D 05/18 Hx Capsules 2000Unit 30cap 1 po qd 268.9 s Yarely Zheng M.D.,[facility] 05/22 Vitamin D High 01/05 Hx Capsules 1000Unit 1 po qd 268.9 Yarely Zheng M.D.,[facility] 05/18 Cyanocobalamin 11/24 Hx Solution 1000mcg/M 10uni Inject 1 L ts milliliter Yarely Zheng Intramuscu [place],[facility] 08/01 larly Monthly monthly Bupropion HCL SR 11/22 Hx Tablets ER 100mg 60tab 1 po qam 311 12HR s and q noon Yarely Zheng M.D.,[facility] 01/05 Advair HFA 10/28 Hx Aerosol 115-21mcg 2 puffs /Act qam Yarely Zheng M.D.,[facility] 06/10 Ventolin HFA 04/19 Hx Aerosol 108(90Bas 1mon 2 puffs R05 e) mcg/ac qid prn Yarely Zheng M.D.,[facility] 05/31 Advair Diskus 04/12 Hx Misc 250-50mcg 60uni inhale 1 /Dose ts dose by Yarely Zheng mouth [place],[facility] 10/28 twice a day Clarithromycin 04/12 Hx Tablets 500mg 14tab 1 po bid 493.10 s for 7 days Yarely Zheng M.D.,[facility] 10/28 Cipro Hx ?Dose bid Unknown /0000 [...] Tablets 400mg if needed Jayesh /Yarely Rebolledo M.D.,[facility] 03/12 Medications Administered in Office Medication Date Status Form Strength Qnty SIG Indications Ordering Provider B-12 Injection Administered Injection Nurse Visit 011 [place] B-12 Injection Administered Injection Nurse Visit 011 [place] B-12 Injection Administered Injection Nurse Visit 011 [place] Immunizations CPT Code Status Date Vaccine Reaction Lot # [id number] Given 03/06/2018 Fluzone High Dose [id number] 30434 Given 04/30/2017 Pneumococcal Conjugate Vaccine 13 Valent [id number] For Intramuscular Use 25210 Given 03/12/2017 Influenza Virus Vaccine, Quadrivalent, [id number] Split, Preservative Free Q2039 Given 03/25/2016 Flu Vaccine NOS 41923 Given 03/22/2016 Influenza Virus Vaccine, Quadrivalent, Split Virus, [place] Use 51145 Given 04/08/2014 Flu Vaccine Split Virus Preservative [id number] Free For Indiv 3Yr Older Q2038 Given 06/04/2013 Fluzone Vaccine Q2037 Given 03/26/2012 Fluvirin Im 3Yrs And Older Q2037 Given 03/26/2012 Fluvirin Im 3Yrs And Older [id number] 80252 Given 12/21/2011 Zoster (Zostavax) [id number] 88056 Given 05/18/2011 Tdap - Tetanus/Diptheria/Acellular {} { [id number] Pertussis 48908 Given 03/30/2010 Pneumonia Vaccine [id number] 06356 Given 03/30/2010 Influenza Virus 3Yrs & Over [id number] 25049 Given 04/12/2009 Influenza Virus Vaccine, Pandemic [id number] Formulation 81126 Given 04/12/2009 Administration Swine Flu Shot Vital Signs Date Vital Result Comment 03/12/2018 Height 72 inches 6'0" Weight 328.38 [...] RBC Morphology NORMAL Urinalysis 12/20/2010 Ua Color MICHEAL Yellow Appearance-Urine CLEAR Clear Specific [place]-Ur 1.027 1.010-1.030 Esterase-Urine NEGATIVE Negative Nitrite NEGATIVE Negative Lrsqgesoqnks-Jq-WOM NEGATIVE Negative Protein-Urine TRACE Negative PH-Urine 6.0 [...] Color YELLOW Yellow Appearance-Urine CLEAR Clear Specific [place]-Ur 1.015 1.010-1.030 Esterase-Urine TRACE Negative Nitrite NEGATIVE Negative Nrrjpvhtdhna-Qa-LWM NEGATIVE Negative Protein-Urine NEGATIVE Negative PH-Urine 6.5 [...] in selective patients <6.0%. Please refer to [place] [employer] diabetic care guidelines for further information. 7 Normal Range 180 to 914 Indeterminate Range 145 to 180 Deficient Range <145 8 Serum levels of PSA measured using the Rajesh CreaWor DXI Hybritech immunoassay should not be interpreted as absolute evidence of the presence or absence of disease. The PSA value should be used in conjunction with other pertinent clinical diagnostic procedures. The values obtained with different assay methods or kits cannot be used interchangeably. 9 SEE RESULT BELOW Name: ROXANA GOODSON : [address]: Abhay Martin MD Acct: [id number] Unit: [id number] AGE: 66 Location: ENDO Re12/05/16 SEX: M Status: REG REF SPEC: [id number] LD: 12/05/16-[address]: Abhay Martin MD REQ: [id number] RECD: 12/05/16-1041 STATUS: MARTHA BILLINGS DR: Jayesh [...] performed at Main Lab DEPARTMENT OF PATHOLOGY, [address] [place] [address] Kin Delgadillo M.D. Director ZHANNA # [id number] RUN DATE: 12/06/16 [facility] LAB LIVE PAGE 2 Patient: HAMZAHROXANA Giovanny [id number] (Continued) GROSS DESCRIPTION (Continued) GROSS DESCRIPTION (Continued) submitted entirely in one cassette. Signed (signature on file) Sherly Carney MD 1451 END OF REPORT * ML=Testing performed at Main Lab DEPARTMENT OF PATHOLOGY, [facility] [place], [place] [address] Kin Delgadillo M.D. Director ZHANNA # [id number] 10 Because ethnic data is not always [...] and in selective patients <6.0%.Please refer to [place] [employer] Diabetic care guidelines for further [...] Serum levels of PSA measured using the [employer]Online DXI Hybritech immunoassay should not be interpreted as absolute evidence of the presence or absence of disease. The PSA value should be used in conjunction with other pertinent clinical diagnostic procedures. The values obtained with different assay methods or kits cannot be used interchangeably. 28 Serum levels of PSA measured using the Exec[employer] DXI Hybritech immunoassay should not be interpreted as absolute evidence of the presence or absence of disease. The PSA value should be used in conjunction with other pertinent clinical diagnostic procedures. The values obtained with different assay methods or kits cannot be used interchangeably. 29 Serum levels of PSA measured using the [employer] DXI Hybritech immunoassay should not be interpreted [...] normal population are 25-80 Test Performed by: [place] [address] Straightening Press Operator Helper: Willie Ramirez III, M.D. 31 -- REFERENCE VALUE -- 25-HYDROXY D TOTAL (D2+D3) Optimum levels in the normal population are 25-80 Test Performed by: [place] [address] Straightening Press Operator Helper: Willie Ramirez III, M.D. 32 HDL Interpretation: [...] normal population are 25-80 Test Performed by: [place] [address] Straightening Press Operator Helper: Willie Ramirez III, M.D. 36 FASTING 37 Therapeutic target for the treatment of diabetes Mellitus patients is <7% HBA1C, and in selective patients <6.0%.Please refer to [place] [employer] Diabetic care guidelines for further information. 38 Serum levels of PSA measured using the Rajesh [place] DXI Hybritech immunoassay should not be interpreted [...] normal population are 25-80 Test Performed by: [place] [address] Straightening Press Operator Helper: Willie Ramirez III, M.D. 40 * SERUM [...] normal population are 25-80 Test Performed by: [facility] Dpt of Lab Med and Pathology [address] [place] [address] Straightening Press Operator Helper: Willie Ramirez III, M.D. 44 VERBAL TO QUINN HUYNH (CHRISTOPHER) ED BY LIZETT at 1359 on 12/22/10. Results read back accurately. RESULTS SENT TO [facility] INFECTION CONTROL NURSE ON 12/22/10 AT 1400 BY LIZETT. VERBAL TO QUINN PHIPPS) ED BY LIZETT at 1359 on 12/22/10. Results read back accurately. RESULTS SENT TO [facility] INFECTION CONTROL NURSE ON 12/22/10 AT 1400 BY LIZETT. REPORTED TO [facility] USING ECLR SYSTEM BY LRU AT 1509 [...] is requested. Contact the Microbiology Department at [phone]. TEST LIMITATIONS: As with all diagnostic procedures, [...] has been shown to interfere with the [place] method for measuring total bilirubin. Samples from [...] normal population are 25-80 Test Performed by: [facility] Dpt of Lab Med and Pathology [address] [place] [address] Straightening Press Operator Helper: Willie Ramirez III, M.D. 67 Anion gap measurement may be of limited value in the presence of any alkalosis, especially in a combined acid base disorder. . 68 A metabolite of Naproxen, O-desmethylnaproxen, has been shown to interfere with the [place] method for measuring total bilirubin. Samples from [...] LEVELS OF PSA MEASURED USING THE RAJESH Vehcon ACCESS HYBRITECH IMMUNOASSAY SHOULD NOT BE INTERPRETED ABSOLUTE EVIDENCE OF THE PRESENCE OR ABSENCE OF DISEASE. THE PSA VALUE SHOULD BE USED IN CONJUNCTION WITH OTHER PERTINENT CLINICAL DIAGNOSTIC PROCEDURES. 75 Note change in reference range as of 01/08/08. The change was based on recommendations from the [place] [employer]. 76 Anion gap measurement may [...] Procedures Date CPT Code Description Status 03/06/2018 74686 EKG Tracing & Interpretation Completed 12/05/2016 Colonoscopy Completed 10/17/2016 92616 ECHO Transthoracic, Real-Time 2D With Doppler And Color Completed Flow 02/23/2015 95379 Polysomnography Sleep Staging 4+ Parameters W/Cpap Completed 08/24/2011 Colonoscopy Completed 12/08/2010 80514 Admin Of Inj Completed 12/01/2010 87367 Admin Of Inj Completed 11/24/2010 39643 Admin Of Inj Completed 08/23/2006 Colonoscopy Completed Encounters Type Date Location Provider CPT E/M Dx Office Visit 03/12/2018 Pulmonology And Sleep Aurora Flannery, 42359 G47.33 9:00a Services Of Edmund DIAZ RN, METER REPAIRER- Office Visit 02/28/2018 [facility] Caterina Blandon M.D. 69407 M25.561 1:15p C.M.AAngelina M25.562 M25.461 M25.462 M17.0 E66.01 Z68.41 Office Visit 02/20/2018 8:40a [facility] Internal Medicine Johanne Santiago N.P. 35582 M25.561 - Dung Office Visit 01/14/2018 4:00p [facility] Internal Medicine Jayesh Sidhu, 94564 I10 - Dung Avila,FACP M51.26 Office Visit 09/12/2017 3:40p [facility] Internal Medicine Jayesh Sidhu, 86104 J45.41 - [place] Henrik Avila,FACP Office Visit 08/06/2017 4:20p [facility] Internal Medicine Jayesh Sidhu, 39836 M51.26 - Dung Avila,FACP J01.10 I10 Office Visit 04/09/2017 9:00a Neurosurgery Services Vassilios 78014 M47.26 Of [facility] MD Tyree M51.26 E66.8 Office Visit 03/12/2017 9:50a [facility] Internal Medicine Jayesh Sidhu, 33263 M54.42 - Dung Avila,FACP Z23 Office Visit 02/27/2017 9:45a [facility] Sleep Aurora Flannery, 25064 G47.33 Services Of [facility] JOE RN, [facility]- E66.9 Z68.42 Office Visit 02/12/2017 4:00p [facility] Internal Medicine Jayesh Sidhu, 07104 M54.42 - Dung Avila,FACP Office Visit 11/06/2016 8:00a [place] [address] M17.12 Of [facility]ata M17.11 Office Visit 09/11/2016 4:20p [facility] Internal Medicine Jayesh Sidhu, 23353 R60.1 - Dung Avila,FACP M25.569 Office Visit 05/08/2016 1:40p [facility] Internal Medicine Jayesh Sidhu, 72324 M54.5 - Dung Avila,FACP Office Visit 04/24/2016 1:00p [facility] Internal Medicine Jayesh Sidhu, 28581 Z00.01 - Dung Avila,FACP I10 J45.909 E66.01 Office Visit 02/10/2016 8:00a [facility] Sleep Aurora Flannery, 25710 G47.33 Services Of [facility] CHRISTOPHER DIAZ, [facility] E66.01 R51 Office Visit 08/05/2015 8:15a Pul[facility]ology [facility] Sleep Aurora Flannery, 07936 G47.33 Services Of [facility] CHRISTOPHER DIAZ, [facility] E66.01 R05 Office Visit 08/03/2015 3:40p [facility] Internal [place] [address] R05 [place] I10 Office Visit 07/18/2015 4:20p [facility] [place] [address] R05 [place] Office Visit 06/16/2015 10:40a [facility] Internal [place] [address] J01.80 [place] Office Visit 05/31/2015 8:40a [facility] Internal [place] [address] R05 [place] I10 Office Visit 05/17/2015 3:00p [facility] [place] [address] J06.9 [place] J45.909 Office Visit 05/06/2015 8:15a [facility] Sleep Aurora Flannery, 78945 G47.33 Services Of [facility] CHRISTOPHER DIAZ, [facility] E66.09 Office Visit 03/31/2015 9:40a [facility] [place] [address] Z00.00 [place] I10 F32.8 D51.3 E55.9 J45.20 R73.01 Office Visit 03/18/2015 8:15a [facility] Sleep Aurora Flannery 64688 G47.33 Services [facility] CHRISTOPHER DIAZ, [facility] Office Visit 01/25/2015 2:45p Pul[facility]ology [facility] Sleep Kwame Licona M.D. 52885 327.23 Services [facility] 278.00 Office Visit 06/10/2014 4:00p [facility] Internal Medicine Jayesh Sidhu, 30793 493.92 Yarely Razo M.D.,[facility] Office Visit 06/03/2014 3:40p [facility] Internal Medicine Jayesh Sidhu, 66148 493.92 - Dung Avila,FACP Office Visit 12/23/2013 4:40p [facility] Internal Medicine Jayesh Sidhu, 48172 461.1 - Dung Avila,FACP Office Visit 10/06/2013 11:10a [facility] Internal Medicine Jayesh Sidhu, 20615 722.2 - Dung Avila,FACP Office Visit 08/31/2013 2:20p [facility] Internal Medicine Shahid Hamilton, 92783 724.2 - Dung Avila Office Visit 10/30/2012 8:50a [facility] Internal Medicine Jayesh Sidhu, 11988 790.21 - Dung Avila,FACP 268.9 281.1 Office Visit 08/01/2012 4:20p [facility] Internal Medicine Jayesh Sidhu, 04625 281.1 - Dung Avila,FACP 790.21 Office Visit 05/22/2012 3:20p [facility] Internal Medicine Jayesh Sidhu, 51855 V70.0 - Dung Avila,FACP 268.9 281.1 493.00 726.19 790.21 Office Visit 12/21/2011 4:00p [facility] Internal Medicine Jayesh Sidhu, 93486 281.1 - Dung Avila,FACP 268.9 V16.42 V05.8 Office Visit 05/18/2011 9:00a DO Not Use Distributing Clerk AT Jayesh Sidhu, 57281 V70.0 Simon Avila,FACP V16.42 493.00 268.9 281.1 726.71 V06.1 Office Visit 01/05/2011 1:00p DO Not Use Distributing Clerk AT Jayesh Sidhu, 96008 296.82 Simon Avila,FACP 008.43 281.1 268.9 493.00 Office Visit 12/22/2010 4:00p DO Not Use Distributing Clerk AT Jayesh Sidhu, 28429 008.43 Simon Avila,FACP 009.1 Office Visit 12/20/2010 1:00p DO Not Use Distributing Clerk AT Adrián Key M.D. 97353 555.9 [facility] Office Visit 11/22/2010 4:00p DO Not Use Distributing Clerk AT Jayesh Sidhu, 98517 311 [facility],FACP 780.93 Office Visit 06/08/2010 9:40a DO Not Use Distributing Clerk AT [facility], 11355 782.3 [facility],FACP 726.71 719.46 Office Visit 10/28/2009 3:00p DO Not Use Distributing Clerk AT [facility], 01536 V70.0 [facility],FACP 327.23 278.00 790.21 Office Visit 04/12/2009 4:00p DO Not Use Distributing Clerk AT [facility], 63179 493.10 [facility],FACP 278.00 327.23 V04.81 v04.81 Plan of Care Future Appointment(s):03/13/2019 9:15 am - Aurora Flannery DNP, RN, METER REPAIRER- at [facility]03/31/2018 3:30 pm - Caterina Blandon M.D. at [facility]03/26/2018 9:30 am - Caterina Blandon M.D. at [facility]06/18/2018 3:00 pm - Jayesh Sidhu M.D.,FACP at [facility] Internal Medicine - [address]03/12/2018 - Aurora Flannery DNP, RN, METER REPAIRER- BCG47.33 Obstructive sleep apnea (adult) (pediatric)Comments:Sleep Apnea - Severe sleep apnea and AHI 72.3 gonsalo oxygen 82%. Split night study 2014 wt 330ON CPAP AHI 1.1/hour, large leakFollow up:1 yearRecommendations:Continue PAP device, Benefitting and compliant with treatment. Trial Dreamwear nasal gel pillow maskCleaning Wipe off mask daily (baby wipe-no scent, or warm water) Clean mask, tubing, filter, and water chamber weekly in mild no scent dish soap and water. Hang to dry. So-Clean is an option (not covered by insurance) If you have any sleepiness while driving you MUST avoid operating a vehicle or machinery. If you have difficulty with your equipment, or need to replace your mask or hoses, please contact your homecare agency. A weight change of 20 pounds or more may have an effect on your equipment; if you are experiencing problems please call for an appointment. If you have any further questions, please call the [facility] at [phone].
[2018-03-31] MEDS ORDERED: Famotidine IV* 10 MG/ML 2 ML (20 mg) ONE (12:37)
[2018-03-31] MEDS ORDERED: ceFAZolin 2 GM in NS PREMIX(*) 2 GM/100 ML BAG IVPB ONE (12:37)
[2018-03-31] MEDS ORDERED: Dexamethasone IV* 4 MG/ML 1 ML (4 MG) ONE (12:37)
[2018-03-31] MEDS ORDERED: Ondansetron INJ* 2 MG/ML VIAL ONE (12:37)
[2018-03-31] MEDS ORDERED: Gabapentin CAP(*) 300 MG ONE (12:37)
[2018-03-31] MEDS ORDERED: Dexamethasone TAB* 4 MG ONE (13:27)
[2018-03-31] MEDS ORDERED: fentaNYL* 50 MCG/ML 2 ML VIAL (100 MCG VIAL) ONE ×2 (13:30→20:08)
[2018-03-31] MEDS ORDERED: KETAMINE HCL* 50 MG/ML 10 ML VIAL ONE (13:31)
[2018-03-31] MEDS ORDERED: Midazolam* 1 MG/ML 5 ML VIAL (5 MG) ONE (13:31)
[2018-03-31] MEDS ORDERED: Bupivacaine 0.5% SDV PF* 30ML VIAL ONE ×2 (14:47→17:12)
[2018-03-31] MEDS ORDERED: ceFAZolin 1 GM ADVAN(*) 1 GM ADDV.VIAL IVPB ONE (14:52)
[2018-03-31] MEDS ORDERED: methylPREDNISolone ACETATE 80* 80 MG/ML 1 ML VIAL ONE ×2 (17:09→17:25)
[2018-03-31] MEDS ORDERED: Bupivacaine 0.25% SDV PF* 10 ML VIAL INJ ONE (17:09)
[2018-03-31] MEDS ORDERED: Lidocaine 2% PF * 5 ML VIAL ONE (17:12)
[2018-03-31] MEDS ORDERED: Ketorolac INJ* 30 MG/ML 1 ML VIAL ONE (17:12)
[2018-03-31] MEDS ORDERED: Propofol* 500 MG/50 ML BTL ONE (17:12)
[2018-03-31] MEDS ORDERED: Propofol* 10 MG/ML 20 ML BTL IV PUSH ONE (17:18)
[2018-03-31] MEDS ORDERED: Polyethylene Glycol 3350* 17 GM PACKET PO PRN (17:34)
[2018-03-31] MEDS ORDERED: Magnesium Hydroxide LIQ* 30 ML UDC PO PRN (17:34)
[2018-03-31] MEDS ORDERED: Ondansetron INJ* 2 MG/ML VIAL IV PRN (17:34)
[2018-03-31] MEDS ORDERED: oxyCODONE/Acetamin 5/325 MG* TAB PO PRN (17:34)
[2018-03-31] MEDS ORDERED: diPHENhydraMINE IV* 50 MG/ML 1 ml VIAL (BENADRYL) IV PRN (17:34)
[2018-03-31] MEDS ORDERED: Bisacodyl SUPP* 10 MG SUPP PR PRN (17:34)
[2018-03-31] MEDS ORDERED: Albuterol 2.5 MG/3 ML NEB.SOL* (0.083%) INH PRN (17:39)
[2018-03-31] MEDS ORDERED: Oxymetazoline 0.05% NASAL SPR* 15 ML BTL BOTH NARES PRN (17:39)
[2018-03-31] MEDS ORDERED: oxyCODONE/Acetamin 5/325 MG* TAB ONE (20:08)
[2018-03-31] MEDS: oxyCODONE/Acetamin 5/325 MG* TAB PO PRN (20:09)
[2018-03-31] MEDS ORDERED: Mometasone/Formoter 200/5 MDI INH SCH (21:00)
--- NOTE | 2018-03-31 21:20 | CONS ---
CONSULTATION NOTE: DATE OF CONSULT: 03/31/18 REASON FOR CONSULT: For better perioperative management of hypertension and FRANCIE. Status post right total knee replacement. HISTORY OF PRESENT ILLNESS: The patient is a 67-year-old gentleman with history of hypertension, morbid obesity, and sleep apnea on CPAP q.h.s. at 13 cm H2O, who has been evaluated preoperatively by Angelina Emil on 03/28/18, for an elective right total knee replacement. He mentioned at that time that he has had trouble ambulating for more than a block and it is causing severe pain and has failed conservative management and hence his elective right knee replacement. I have been asked to consult on the patient to better control his perioperative medical issues and more specifically his hypertension and CPAP. PAST MEDICAL HISTORY AND SURGICAL HISTORY: 1. Morbid obesity. 2. Hypertension. 3. Osteoarthritis. 4. Depression. 5. Chronic low back pain. 6. Enlarged prostate. 7. Sleep apnea, on CPAP at 13 cm H2O. 8. Status post lumbar laminectomy and hernia repair. MEDICATIONS: His home medications are: 1. Olmesartan. 2. Medoxomil/hydrochlorothiazide. 3. Nitroxoline. 4. Albuterol sulfate. 5. Mometasone furoate. 6. Felodipine. 7. Hydrocodone/acetaminophen 5/325. 8. Advair. 9. ProAir HFA. 10. Bupropion. 11. Singular. 12. Loratadine. 13. Tamsulosin. 14. Finasteride. 14. Vitamin D3. 16. Meloxicam. 17. Oxymetazoline. His current medications are: 1. Tylenol p.o. q.8 p.r.n. 2. Albuterol. 3. Bisacodyl. 4. Bupropion. 5. Cyclobenzaprine. 6. Dexamethasone. 7. Dimenhydrinate. 8. Colace. 9. Lovenox 40 subcu daily. 10. Famotidine. 11. Felodipine. 12. Fentanyl. 13. Finasteride. 14. Fluticasone. 15. Salmeterol. 16. Gabapentin. 17. Cefazolin. 18. Lactulose. 19. Loratadine. 20. Lactated Ringer's IV. 21. Magnesium hydroxide p.o. q.6 h. p.r.n. and p.o. b.i.d. 21. Montelukast. 22. Morphine p.r.n. 23. Naloxone p.r.n. 24. Ondansetron p.r.n. 25. Oxycodone tab p.r.n. 26. Percocet tab p.r.n. 27. Scopolamine patch. 28. Tamsulosin. 29. Tramadol p.r.n. 30. Tranexamic acid. 31. Warfarin x1. ALLERGIES: 1. CHICKEN. 2. CHOCOLATE. 3. DAIRY. 4. PSEUDOEPHEDRINE. 5. LEVAQUIN. 6. BENAZEPRIL. FAMILY HISTORY: Prostate cancer, his brother; colon cancer, his father. SOCIAL HISTORY: He lives with his spouse. 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 He has no tobacco or recreational drug use. He drinks about 3 to 5 alcoholic beverages per week. REVIEW OF SYSTEMS: The patient is recently coming off sedation and denies any postoperative pain. Denies any headaches, dizziness, fevers, chills, nausea, vomiting, chest pain, shortness of breath, increased cough and sputum production , abdominal pain, diarrhea, constipation, pain and/or increased urination, myalgias, arthralgias, throat pain, or new skin lesion. The rest of the 14- point review of systems are otherwise unremarkable. PHYSICAL EXAMINATION: Shows the most recent vital signs of records with blood pressure of 157/82 from previous of 126/66; 97.5 degrees Fahrenheit; 68 beats per minute heart rate; 16 per minute respiratory rate; 93% saturation on nasal cannula postop 2 L. General Appearance: The patient is awake, slightly confused given he is coming off sedation, but oriented x3, and appropriately answers questions. The patient is obese. HEENT: Normocephalic, atraumatic. PERRLA. Extraocular muscles intact. Negative for icterus. Moist oral mucosa. Negative throat erythema. Neck is soft, supple with no cervical lymphadenopathy. Difficult to assess JVD given his obesity. No hepatojugular reflux noted. Heart: S1 and S2 within normal limits. Regular rate and rhythm. No murmurs, rubs, or gallops. Chest: Clear to auscultation bilaterally. Good air entry. No wheezes, rales, or rhonchi. Abdomen is soft, nondistended, nontender. Slightly hypoactive bowel sounds x4 quadrants. Extremities: No cyanosis or clubbing with expected postoperative edema on the right extremity, more specifically around the perioperative area. Psychiatric: No active psychosis, depression, suicidal nor homicidal ideation. Skin is warm to touch. LABORATORY DATA: Most recent and pertinent laboratories drawn on 03/26/18 showed normal CBC, normal INR, normal CMP. ASSESSMENT AND PLAN: The patient is a 67-year-old gentleman with history of morbid obesity, hypertension, and osteoarthritis, status post elective right total knee replacement. 1. Status post right total knee replacement. We will defer with Orthopedics for any further input and will defer with further pain control with Orthopedics team. 2. Hypertension. I agree with continuing on felodipine and if the patient is otherwise hemodynamically stable tomorrow with no other issues, olmesartan may first be added as a priority to medoxomil/hydrochlorothiazide. 3. Sleep apnea. The patient has brought in his own CPAP machine and mentions that his settings is at 3 cm H2O and we will order this for him at this time. We will continue watchful waiting and we will await postoperative chest x-ray that has been ordered. Continue p.r.n. albuterol. Continue with montelukast. 4. Depression. Continue bupropion. 5. DVT prophylaxis. The patient is on Lovenox. 6. Disposition. We will defer with Ortho. Thank you for having us participate with Mr. Goodson's perioperative management and plan and we will follow along with you. [id number]/[facility] #: [id number] MTDD
[2018-03-31] MEDS ORDERED: oxyCODONE TAB* 5 MG TAB ONE (22:53)
[2018-03-31] MEDS: oxyCODONE TAB* 5 MG TAB PO PRN (22:55)
[2018-03-31] MEDS ORDERED: Warfarin TAB(*) 6 MG PO ONE (23:00)
[2018-03-31] MEDS: ceFAZolin 1 GM in Dextrose (*) 1 GM/50 ML BAG IVPB SCH (23:43)
[2018-03-31] MEDS: Albuterol HFA INHALER* 8 gm MDI INH SCH (23:46)
[2018-03-31] MEDS: Magnesium Hydroxide LIQ* 30 ML UDC PO SCH (23:48)
[2018-03-31] MEDS: Docusate CAP* 100 MG PO SCH (23:48)
[2018-04-01] MEDS: Morphine VIAL* 4 MG/ML VIAL (1 ml vial) IV PRN ×6 (00:05→21:27)
[2018-04-01] MEDS: Cyclobenzaprine TAB* 10 MG PO PRN ×2 (00:08→16:14)
[2018-04-01] MEDS: oxyCODONE/Acetamin 5/325 MG* TAB PO PRN ×4 (00:16→22:32)
[2018-04-01] MEDS: PTO:Fluticas/Salmet 230/21 HFA(NF) MDI INH SCH ×3 (00:17→22:33)
[2018-04-01] MEDS: oxyCODONE TAB* 5 MG TAB PO PRN ×3 (03:11→13:36)
[2018-04-01 06:35] LABS: Hematocrit 40 % (42-52); Hemoglobin 13.4 g/dl (14.0-18.0); Mean Platelet Volume 8.7 fL (7.4-10.4); Platelet Count 184 10^3/ul (150-450)
[2018-04-01 06:43] LABS: INR 1.04 (0.77-1.02)
[2018-04-01] MEDS: Acetaminophen TAB* 325 MG PO SCH ×3 (06:48→21:28)
[2018-04-01 06:58] LABS: EGFR Non-African American 96.7 (>60)
[2018-04-01] MEDS: ceFAZolin 1 GM in Dextrose (*) 1 GM/50 ML BAG IVPB SCH ×2 (07:48→16:09)
[2018-04-01] MEDS: Albuterol HFA INHALER* 8 gm MDI INH SCH ×2 (08:53→22:34)
[2018-04-01] MEDS: Magnesium Hydroxide LIQ* 30 ML UDC PO SCH ×2 (08:59→21:28)
[2018-04-01] MEDS: amLODIPine TAB* 5 MG PO SCH (09:00)
[2018-04-01] MEDS: buPROPion TAB* 100 MG PO SCH ×2 (09:04→12:30)
[2018-04-01] MEDS: Montelukast Sodium TAB* 10 MG PO SCH (09:05)
[2018-04-01] MEDS: Finasteride TAB* 5 MG PO SCH (09:06)
[2018-04-01] MEDS: Cetirizine* 10 MG TAB PO SCH (09:06)
[2018-04-01] MEDS: Docusate CAP* 100 MG PO SCH ×2 (09:07→21:28)
[2018-04-01] MEDS: Tamsulosin CAP* 0.4 MG PO SCH (09:07)
[2018-04-01] MEDS: traMADol TAB* 50 MG PO PRN ×2 (10:33→17:52)
--- NOTE | 2018-04-01 10:45 | PN ---
Subjective Date of Service: 04/01/18 Interval History: Pt resting comfortably in chair. Reports that he has a difficulty night for pain management, with pain worse when lying in bed. Pt says pain better controlled today, 5/10 after PT and dressing and sitting in chair. Pt also reports N/V overnight, but none today. Pt denies shortness of breath and has been using IS, however is using supplemental O2 which is not his baseline. Denies dizziness, headache, chest pain, D/C. Reports numbness/tingling in his RLE is at baseline. Pt was concerned that his right leg looks a little discolored, however this appears to be from the betadine from his surgery. Objective Active Medications: Acetaminophen (Tylenol Tab*) 975 mg PO Q8HR [facility] Last Admin: 04/01/18 06:48 Dose: Not Given Albuterol (Ventolin Hfa Inhaler*) 2 puff INH BID [facility] Last Admin: 04/01/18 08:53 Dose: Not Given Albuterol (Ventolin 2.5 Mg/3 Ml Neb.Madeline*) 1.25 mg INH QID PRN PRN Reason: SHORTNESS OF BREATH Amlodipine Besylate (Norvasc Tab*) 2.5 mg PO QAM [facility]; Protocol Last Admin: 04/01/18 09:00 Dose: 2.5 mg Bisacodyl (Dulcolax Supp*) 10 mg PA DAILY PRN PRN Reason: constipation Bupropion HCl (Wellbutrin Tab*) 200 mg PO QAM [facility] Last Admin: 04/01/18 09:04 Dose: 200 mg Bupropion HCl (Wellbutrin Tab*) 100 mg PO DAILY@1200 [facility] Cetirizine HCl (Zyrtec*) 10 mg PO QAM [facility] Last Admin: 04/01/18 09:06 Dose: 10 mg Cyclobenzaprine HCl (Flexeril Tab*) 10 mg PO TID PRN PRN Reason: SPASMS Last Admin: 04/01/18 00:08 Dose: 10 mg Diphenhydramine HCl (Benadryl Iv*) 12.5 mg IV Q6H PRN PRN Reason: PRURITIS Docusate Sodium (Colace Cap*) 100 mg PO BID [facility] Last Admin: 04/01/18 09:07 Dose: 100 mg Enoxaparin Sodium (Lovenox(*)) 40 mg SUBCUT Q24H [facility] Finasteride (Proscar Tab*) 5 mg PO QAM [facility] Last Admin: 04/01/18 09:06 Dose: 5 mg Cefazolin Sodium/Dextrose (Kefzol 1 Gm In Dextrose Duplex (*)) 1 gm in 50 mls @ 200 mls/hr IVPB Q8H [facility] Stop: 04/01/18 15:44 Last Admin: 04/01/18 07:48 Dose: 200 mls/hr Lactated Ringer's (Lactated Ringers 1000 Ml Bag*) 1,000 mls @ 100 mls/hr IV PER RATE [facility] Last Admin: 04/01/18 08:47 Dose: 100 mls/hr Lactulose (Lactulose*) 30 ml PO Q6H PRN PRN Reason: constipation Magnesium Hydroxide (Milk Of Magnesia Liq*) 30 ml PO BID [facility] Last Admin: 04/01/18 08:59 Dose: 30 ml Magnesium Hydroxide (Milk Of Magnesia Liq*) 30 ml PO Q6H PRN PRN Reason: constipation Montelukast Sodium ([facility]ulair Tab*) [facility] Last Admin: 04/01/18 09:05 Dose: 10 mg Morphine Sulfate (Morphine Vial*) 2 mg IV Q2H PRN PRN Reason: PAIN - SEVERE Last Admin: 04/01/18 08:04 Dose: 2 mg Ondansetron HCl (Zofran Inj*) 4 mg IV Q6H PRN PRN Reason: nausea Ondansetron HCl (Zofran Tab*) 4 mg PO Q6H PRN PRN Reason: NAUSEA Oxycodone HCl (Roxycodone Tab*) 10 mg PO Q4H PRN PRN Reason: SEVERE PAIN Last Admin: 04/01/18 08:03 Dose: 10 mg Oxycodone/Acetaminophen (Percocet 5/325 Tab*) 1 tab PO Q4H PRN PRN Reason: PAIN Oxycodone/Acetaminophen (Percocet 5/325 Tab*) 2 tab PO Q4H PRN PRN Reason: PAIN Last Admin: 04/01/18 05:17 Dose: 2 tab Oxymetazoline HCl (Afrin 0.05% Nasal Lyons*) 1 spray BOTH NARES Q12H PRN PRN Reason: Allergy Symptoms Pharmacy Profile Note (Scopolamine Patch Remove*) 1 note PATCH OFF Q72H ONE Stop: 04/03/18 05:56 Polyethylene Glycol/Electrolytes (Miralax*) 17 gm PO DAILY PRN PRN Reason: Constipation Fluticasone/Salmeterol (Advair Hfa o (Nf)) 2 puff INH BID [facility]; Protocol Last Admin: 04/01/18 08:53 Dose: 2 puff Tamsulosin HCl (Flomax Cap*) 0.4 mg PO QAM [facility] Last Admin: 04/01/18 09:07 Dose: 0.4 mg Tramadol HCl (Ultram*) 50 mg PO Q6H PRN PRN Reason: PAIN Last Admin: 04/01/18 10:33 Dose: 50 mg Vital Signs - 8 hr 04/01/18 04/01/18 04/01/18 03:11 03:12 03:24 Temperature 97.5 F Pulse Rate 66 Respiratory 16 16 16 Rate Blood Pressure 101/55 (mmHg) O2 Sat by Pulse 94 Oximetry 04/01/18 04/01/18 04/01/18 03:37 04:00 05:17 Temperature Pulse Rate Respiratory 16 8 Rate Blood Pressure (mmHg) O2 Sat by Pulse 94 Oximetry 04/01/18 04/01/18 04/01/18 05:18 05:23 06:47 Temperature Pulse Rate Respiratory 16 16 16 Rate Blood Pressure (mmHg) O2 Sat by Pulse Oximetry 04/01/18 04/01/18 04/01/18 07:19 08:03 08:04 Temperature 98.0 F Pulse Rate 69 Respiratory 20 18 18 Rate Blood Pressure 126/57 (mmHg) O2 Sat by Pulse 95 Oximetry 04/01/18 04/01/18 08:45 10:33 Temperature Pulse Rate 68 Respiratory 18 Rate Blood Pressure (mmHg) O2 Sat by Pulse 93 Oximetry Oxygen Devices in Use Now: Nasal Cannula Eyes: No Scleral Icterus, PERRLA Ears/Nose/Mouth/Throat: NL Teeth, Lips, Gums, Mucous Membranes Moist Neck: NL Appearance and Movements; NL JVP Respiratory: Symmetrical Chest Expansion and Respiratory Effort Cardiovascular: NL Sounds; No Murmurs; No JVD, No Edema Abdominal: NL Sounds; No Tenderness; No Distention Extremities: No Clubbing, Cyanosis, - - trace bilateral lower extremity edema Skin: No Rash or Ulcers, No Nodules or Sclerosis Neurological: Alert and Oriented x 3 Result Diagrams: 04/04/18 08:01 04/01/18 06:24 Assess/Plan/Problems-Billing Assessment: 67 year old male with PMH HTN, FRANCIE on CPAP s/p elective R knee replacement with Dr Blandon. POD 1. - Patient Problems (1) Status post right knee replacement Status: Acute Code(s): Z96.651 - PRESENCE OF RIGHT ARTIFICIAL KNEE JOINT SNOMED Code(s): 838723994 Comment: - POD 3 - Management per ortho (2) HTN (hypertension) Status: Acute Code(s): I10 - ESSENTIAL (PRIMARY) HYPERTENSION SNOMED Code(s) : 36279978 Comment: - Normotensive - Hold olmesartan/HCTZ; may resume at d/c - Continue amlodipine (3) Sleep apnea Status: Acute Code(s): G47.30 - SLEEP APNEA, UNSPECIFIED SNOMED Code(s): 64992154 Comment: - Home CPAP (4) Obesity Status: Acute Code(s): E66.9 - OBESITY, UNSPECIFIED SNOMED Code(s): 287295784 Comment: - BMI 44.2 - Supportive care (5) DVT prophylaxis Status: Acute Code(s): SDL8584 - SNOMED Code(s): 498314716 Comment: - Lovenox bridging to Coumadin per ortho (6) Full code status Status: Acute Code(s): Z78.9 - OTHER SPECIFIED HEALTH STATUS SNOMED Code(s) : 848980021 Status and Disposition: Inpatient. Plan per primary team, ortho
--- NOTE | 2018-04-01 12:07 | OP ---
OPERATIVE NOTE: DATE OF OPERATION: 03/31/18 DATE OF : 52 SURGEON: Caterina Blandon MD. DIRECTOR OF SPECIAL EDUCATION: RICA Lawrence. Ms. Ortiz did help throughout the procedure with preparation of the leg, wound retraction, manipul ation of the knee, and wound closure. ANESTHESIOLOGIST: Dr. Palmer. ANESTHESIA: General. PRE-OP DIAGNOSIS: Severe endstage degenerative osteoarthritis of the right knee joint. POST-OP DIAGNOSIS: Severe endstage degenerative osteoarthritis of the right knee joint. OPERATIVE PROCEDURE: Right total knee arthroplasty. TOURNIQUET TIME: 51 minutes. ESTIMATED BLOOD LOSS: 200 cc. COMPLICATIONS: None. SPECIMEN: Bone and cartilage from the right knee joint sent to Pathology. HARDWARE USED: This is cemented [employer] total knee hardware. Two packages of Simplex bone cement. For the femur, a size 7 right posterior stabilized Legion Oxinium femoral component. For th e tibia, a size 6 Rebecca II right tibial base plate. For the insert, a 9-mm posterior stabilized ar ticular insert, size 5/6 and for the patella, a 35-mm 3-peg all-poly patella. BRIEF HISTORY AND INDICATIONS: Mr. Goodson is a 67-year-old gentleman with years of increasingly sev ere right knee pain. He failed conservative treatment with antiinflammatories, pain medication, intr aarticular injections, and physical therapy. Due to continued pain and decreased quality of life, he elected to undergo right total knee arthroplasty. Radiographs showed [id number] arthritis of adva nced disease. Informed consent was obtained from the patient. He understood the risks of surgery in cluded, but were not limited to bleeding, infection, damage to nearby structures, continued pain, nee d for further surgery, intraoperative fracture, nerve palsy, hardware failure or loosening, knee stif fness, loss of motion, stroke, heart attack, blood clot, and . He wished to proceed. INTRAOPERATIVE FINDINGS: Intraoperatively, the patient was noted to have severe endstage arthritis. There was complete loss of cartilage in all 3 compartments. There was extensive osteophyte formation . DESCRIPTION OF PROCEDURE: Mr. Goodson was identified in the preanesthesia unit. His right lower extr emity was marked as the correct operative side. Informed consent was signed and placed in the chart. The patient was taken to the operating room and placed under general anesthesia. A Lucia catheter was placed. Tourniquet was placed on the right thigh. Right lower extremity was prepped and draped in the usual sterile fashion. Preop time-out was made to correctly identify the patient, side and si te. Appropriate perioperative antibiotics were given within 1 hour of incision. Tourniquet was inflated until the tourniquet time for this procedure was 51 minutes. A midline incis ion was made with a 10 blade and carried down to the extensor mechanism. A new 10 blade was used to make a standard medial parapatellar arthrotomy. Patella was subluxed laterally. Electrocautery was used to subperiosteally elevate the soft tissue off the superomedial tibia to the mid sagittal plane. The knee was flexed up. Anterior horn of the lateral meniscus and ACL were sharply released. A dr ill was used to enter the distal femur. Intramedullary distal femoral cutting guide was pinned on the distal femur. Oscillating saw was used to make the distal femoral cut. Next, the external rotation guide was pinned on the distal femur. Distal femur was sized to a size 7. Size 7 multi-cutting jig w as pinned on the distal femur. The oscillating saw was used to make the appropriate 4 chamfer cuts. PCL was completely released and the tibia was subluxed anteriorly. Extramedullary tibial cutting james de was pinned on the proximal tibia. Oscillating saw was used to make the proximal tibial cut perpen dicular to the mechanical axis of the tibia. The bone was carefully removed. The knee was brought ou t into full extension and the spacer block had good fit. Medial and lateral ligaments were well alexandr nced. The flexion and extension gaps were well balanced. The knee was flexed up. The lamina spreade r was placed both medially and laterally. Any remaining meniscus was carefully removed using electro cautery. Curved osteotome was used to remove any posterior osteophytes. Tibial tray and drop henny we re placed and once again confirmed a satisfactory tibial cut. A size 7 right femoral trial was impacted on to the distal femur and had excellent fit. The box for the posterior stabilized implant was prepared using a reamer and box cut osteotome. Size 6 tibial tr ay trial with a 9-mm insert trial was placed and the knee was taken through a range of motion. The k nee had full extension to 130 degrees of flexion with patellofemoral tracking that was satisfactory. Patella was everted. 9 mm of patellar bone and cartilage was carefully removed using an oscillating saw. Oscillating saw was used to remove 9 mm of patellar bone and cartilage. Patella was sized to a size 35. Three peg holes were drilled through the size 35 guide. The 35 patella was placed and th e knee was taken through a range of motion. There was satisfactory patellofemoral tracking. All tri als were carefully removed. Tibia was subluxed anteriorly and sized to a size 6. Proximal tibia was prepared using a size 6 keel punch. All bony cut surfaces were copiously irrigated with sterile saline and dried. Final implants were zoë ented into place starting with the tibia followed by the femur and last the patella. 9-mm insert tri al was placed and the knee was brought out into full extension. Tourniquet was turned down at 51 min utes. Electrocautery was used to obtain meticulous hemostasis. The knee was copiously irrigated wit h sterile saline. Once the cement had fully cured, the insert trial was removed. Any excess cement w as removed from around the capsule and hardware. Final insert chosen was a 9-mm posterior stabilized articular insert size 5/6. This was locked into position on the tibial tray. Stability of the inse rt was checked and rechecked and noted to be stable. The extensor mechanism was closed using interru pted #1 Vicryls. The rest of the incision was closed in a layered fashion using 0 and 2-0 Vicryls. The skin was closed using running 3-0 nylon suture. Sterile Xeroform, 4x4s, and Webril were used to c over the incision. Magdaleno wrap and cold pack were placed over this. The patient's anesthesia was reversed without difficulty. He was taken to the PACU in stable conditi on. Intended weightbearing will be weightbearing as tolerated. Intended DVT prophylaxis will be Coum horacio with a Lovenox bridge. [id number]/[facility] #: [id number]
[2018-04-01] MEDS: Enoxaparin(*) 40 MG/0.4 ML SYR SUBCUT SCH (12:30)
[2018-04-01] MEDS: PTO: Mometasone NASAL (NF) SPRAY BOTH NARES SCH (13:38)
--- NOTE | 2018-04-01 15:20 | PN ---
Progress Note - Progress Note Date of Service: 04/01/18 SOAP: Subjective: []Patient seen and examined at bedside. Reports feeling well with well controlled knee pain. He has had oxygen saturations into the high 80's low 90' s. He is currently on 4 L O2. He does not utilize O2 at home though his reports history of "weak lungs" and often wheezes at home. Denies chest pain, shortness of breath, dizziness, nausea. Objective: []General: Well appearing, NAD, O2 on 4L RLE: Right knee dressing CDI without discharge or surrounding erythema. Thigh is soft. DF/PF intact. Dp2+, capillary refill less than two seconds, Sensation intact distally Calves supple and nontender without erythema, edema or palpable cords Assessment: []POD 1 sp right total knee replacement Low O2 sats, asymptomatic, CXR ordered by medicine Plan: []WBAT PT/OT lovenox bridge to coumadin. Coumadin 8 mg tonight Vital Signs Temp 98.4 F 04/01/18 11:05 Pulse 66 04/01/18 11:05 Resp 20 04/01/18 15:04 BP 110/64 04/01/18 11:05 Pulse Ox 91 04/01/18 11:05 Intake & Output 03/31/18 04/01/18 04/01/18 18:59 06:59 18:59 Intake Total 1900 1540 1362 Output Total 1245 1025 Balance 1900 295 337 Weight 326 lb Intake: IV Fluids 1900 952 1GM TRANEXAMIC ACID 50 3GM CEFAZOLIN 150 LR 1700 952 IVPB 110 ABX - CEFAZOLIN 110 Oral 1540 300 Output: Urine 1025 Lucia 845 Emesis 400 Other: # Bowel Movements 0 Laboratory Last Values Hgb 13.4 g/dl (14.0-18.0) L 04/01/18 06:24 Hct 40 % (42-52) L 04/01/18 06:24 Plt Count 184 10^3/ul (150-450) 04/01/18 06:24 MPV 8.7 fL (7.4-10.4) 04/01/18 06:24 INR (Anticoag Therapy) 1.04 (0.77-1.02) H 04/01/18 06:24 Sodium 138 mmol/L (135-145) 04/01/18 06:24 Potassium 4.4 mmol/L (3.5-5.0) 04/01/18 06:24 Chloride 104 mmol/L (101-111) 04/01/18 06:24 Carbon Dioxide 26 mmol/L (22-32) 04/01/18 06:24 Anion Gap 8 mmol/L (2-11) 04/01/18 06:24 BUN 23 mg/dL (6-24) 04/01/18 06:24 Creatinine 0.80 mg/dL (0.67-1.17) 04/01/18 06:24 Est GFR ( Amer) 117.0 (>60) 04/01/18 06:24 Est GFR (Non-Af Amer) 96.7 (>60) 04/01/18 06:24 BUN/Creatinine Ratio 28.8 (8-20) H 04/01/18 06:24 Glucose 182 mg/dL (70-100) H 04/01/18 06:24 Calcium 8.6 mg/dL (8.6-10.3) 04/01/18 06:24
[2018-04-01] MEDS ORDERED: Warfarin TAB(*) 4 MG PO ONE (17:00)
[2018-04-02] MEDS: oxyCODONE TAB* 5 MG TAB PO PRN ×3 (02:26→21:17)
[2018-04-02 05:14] LABS: Hematocrit 34 % (42-52); Hemoglobin 11.5 g/dl (14.0-18.0); Mean Platelet Volume 8.2 fL (7.4-10.4); Platelet Count 143 10^3/ul (150-450)
[2018-04-02 05:20] LABS: INR 1.22 (0.77-1.02)
[2018-04-02] MEDS: Acetaminophen TAB* 325 MG PO SCH ×3 (05:48→22:42)
[2018-04-02] MEDS: oxyCODONE/Acetamin 5/325 MG* TAB PO PRN ×3 (07:33→18:25)
[2018-04-02] MEDS: Montelukast Sodium TAB* 10 MG PO SCH (09:07)
[2018-04-02] MEDS: Finasteride TAB* 5 MG PO SCH (09:07)
[2018-04-02] MEDS: Cetirizine* 10 MG TAB PO SCH (09:07)
[2018-04-02] MEDS: Tamsulosin CAP* 0.4 MG PO SCH (09:07)
[2018-04-02] MEDS: buPROPion TAB* 100 MG PO SCH ×2 (09:07→11:18)
[2018-04-02] MEDS: Morphine TAB Extended Release (*) 30 MG TAB.ER PO SCH ×2 (09:07→21:16)
[2018-04-02] MEDS: Docusate CAP* 100 MG PO SCH ×2 (09:08→21:16)
[2018-04-02] MEDS: Magnesium Hydroxide LIQ* 30 ML UDC PO SCH ×2 (09:08→21:18)
[2018-04-02] MEDS: amLODIPine TAB* 5 MG PO SCH (09:08)
[2018-04-02] MEDS: PTO: Mometasone NASAL (NF) SPRAY BOTH NARES SCH (09:10)
[2018-04-02] MEDS: Albuterol HFA INHALER* 8 gm MDI INH SCH (09:11)
--- NOTE | 2018-04-02 09:32 | PN ---
Progress Note - Progress Note Date of Service: 04/02/18 SOAP: Subjective: [] Patient seen and examined at bedside. He has no complaints today, his pain is better controlled in the past 2 hours. Denies any chest pain, shortness of breath, dizziness, nausea. Objective: []General: Well appearing, NAD RLE: Right knee dressing CDI without discharge or surrounding erythema. Thigh is soft. DF/PF intact. Dp2+, capillary refill less than two seconds, Sensation intact distally Calves supple and nontender without erythema, edema or palpable cords Assessment: []POD 2 sp right total knee replacement Low O2 sats, atelectasis on CXR Plan: []WBAT PT/OT lovenox bridge to coumadin. Coumadin 8 mg tonight Wean off of O2 as able to anticipate DC tomorrow Needs forehead sutures removed tomorrow Long acting morphine added for pain control Vital Signs Temp 98.2 F 04/02/18 07:31 Pulse 65 04/02/18 07:31 Resp 14 04/02/18 09:07 BP 134/64 04/02/18 07:31 Pulse Ox 96 04/02/18 07:31 Intake & Output 04/01/18 04/02/18 04/02/18 18:59 06:59 18:59 Intake Total 1812 2240 150 Output Total 1650 1675 Balance 162 565 150 Intake: IV Fluids 952 990 LR 952 990 IVPB 110 ABX - CEFAZOLIN 110 Oral 750 1250 150 Output: Urine 1650 1675 Other: # Bowel Movements 0 Laboratory Last Values Hgb 11.5 g/dl (14.0-18.0) L 04/02/18 05:03 Hct 34 % (42-52) L 04/02/18 05:03 Plt Count 143 10^3/ul (150-450) L 04/02/18 05:03 MPV 8.2 fL (7.4-10.4) 04/02/18 05:03 INR (Anticoag Therapy) 1.22 (0.77-1.02) H 04/02/18 05:03 Sodium 138 mmol/L (135-145) 04/01/18 06:24 Potassium 4.4 mmol/L (3.5-5.0) 04/01/18 06:24 Chloride 104 mmol/L (101-111) 04/01/18 06:24 Carbon Dioxide 26 mmol/L (22-32) 04/01/18 06:24 Anion Gap 8 mmol/L (2-11) 04/01/18 06:24 BUN 23 mg/dL (6-24) 04/01/18 06:24 Creatinine 0.80 mg/dL (0.67-1.17) 04/01/18 06:24 Est GFR ( Amer) 117.0 (>60) 04/01/18 06:24 Est GFR (Non-Af Amer) 96.7 (>60) 04/01/18 06:24 BUN/Creatinine Ratio 28.8 (8-20) H 04/01/18 06:24 Glucose 182 mg/dL (70-100) H 04/01/18 06:24 Calcium 8.6 mg/dL (8.6-10.3) 04/01/18 06:24
[2018-04-02] MEDS ORDERED: Albuterol 2.5 MG/3 ML NEB.SOL* (0.083%) INH PRN (10:12)
[2018-04-02] MEDS: PTO:Fluticas/Salmet 230/21 HFA(NF) MDI INH SCH ×2 (10:20→20:13)
[2018-04-02] MEDS: traMADol TAB* 50 MG PO PRN (10:27)
[2018-04-02] MEDS: Morphine VIAL* 4 MG/ML VIAL (1 ml vial) IV PRN (11:18)
[2018-04-02] MEDS: Enoxaparin(*) 40 MG/0.4 ML SYR SUBCUT SCH (11:18)
--- NOTE | 2018-04-02 16:16 | PN ---
Subjective Date of Service: 04/02/18 Interval History: Mr. Goodson feels better today. His is at the bedside. He is still having significant pain and feels this is more pain than he expected to have postoperatively. He is trying to avoid using IV morphine. His thinks he is letting his pain get too severe before requesting pain medication. Down to 2L NC. He has not had a BM since surgery, but does not feel constipated. He is aware of available bowel regimen. Denies CP, SOB, N/V/D, dizziness. Family History: Unchanged from Admission Social History: Unchanged from Admission Past Medical History: Unchanged from Admission Objective Active Medications: Acetaminophen (Tylenol Tab*) 975 mg PO Q8HR URI Albuterol (Ventolin 2.5 Mg/3 Ml Neb.Madeline*) 2.5 mg INH QID PRN Amlodipine Besylate (Norvasc Tab*) 2.5 mg PO QAM URI; Protocol Bisacodyl (Dulcolax Supp*) 10 mg WA DAILY PRN Bupropion HCl (Wellbutrin Tab*) 200 mg PO QAM URI Bupropion HCl (Wellbutrin Tab*) 100 mg PO DAILY@1200 URI Cetirizine HCl (Zyrtec*) 10 mg PO QAM URI Cyclobenzaprine HCl (Flexeril Tab*) 10 mg PO TID PRN Diphenhydramine HCl (Benadryl Iv*) 12.5 mg IV Q6H PRN Docusate Sodium (Colace Cap*) 100 mg PO BID URI Enoxaparin Sodium (Lovenox(*)) 40 mg SUBCUT Q24H URI Finasteride (Proscar Tab*) 5 mg PO QAM [facility] Lactated Ringer's (Lactated Ringers 1000 Ml Bag*) 1,000 mls @ 100 mls/hr IV PER RATE URI Lactulose (Lactulose*) 30 ml PO Q6H PRN Magnesium Hydroxide (Milk Of Magnesia Liq*) 30 ml PO BID URI Magnesium Hydroxide (Milk Of Magnesia Liq*) 30 ml PO Q6H PRN Mometasone Furoate (Nasonex (Nf)) 1 spray BOTH NARES DAILY URI Montelukast Sodium (Singulair Tab*) 10 mg PO QAM URI Morphine Sulfate (Morphine Vial*) 2 mg IV Q2H PRN Morphine Sulfate (Ms Contin(*)) 30 mg PO Q12H URI Ondansetron HCl (Zofran Inj*) 4 mg IV Q6H PRN Ondansetron HCl (Zofran Tab*) 4 mg PO Q6H PRN Oxycodone HCl (Roxycodone Tab*) 10 mg PO Q4H PRN Oxycodone/Acetaminophen (Percocet 5/325 Tab*) 1 tab PO Q4H PRN Oxycodone/Acetaminophen (Percocet 5/325 Tab*) 2 tab PO Q4H PRN Oxymetazoline HCl (Afrin 0.05% Nasal [place]*) 1 spray BOTH NARES Q12H PRN Pharmacy Profile Note (Scopolamine Patch Remove*) 1 note PATCH OFF Q72H ONE Pharmacy Profile Note (Coumadin Daily Reminder*) 1 note FOLLOW UP 1700 URI Polyethylene Glycol/Electrolytes (Miralax*) 17 gm PO DAILY PRN Fluticasone/Salmeterol (Advair Hfa 23o/21 (Nf)) 2 puff INH BID URI; Protocol Tamsulosin HCl (Flomax Cap*) 0.4 mg PO QAM URI Tramadol HCl (Ultram*) 50 mg PO Q6H PRN Vital Signs - 8 hr 04/02/18 04/02/18 04/02/18 09:00 09:07 09:35 Temperature Pulse Rate Respiratory 16 14 16 Rate Blood Pressure (mmHg) O2 Sat by Pulse 93 Oximetry 04/02/18 04/02/18 04/02/18 11:28 12:30 12:35 Temperature 98.3 F Pulse Rate 71 Respiratory 16 16 16 Rate Blood Pressure 121/63 (mmHg) O2 Sat by Pulse 93 Oximetry Oxygen Devices in Use Now: Nasal Cannula - 2L Appearance: Middle-aged male sitting in chair in NAD Eyes: No Scleral Icterus Ears/Nose/Mouth/Throat: Mucous Membranes Moist Neck: NL Appearance and Movements; NL JVP Respiratory: Symmetrical Chest Expansion and Respiratory Effort, Clear to Auscultation Cardiovascular: NL Sounds; No Murmurs; No JVD, RRR Abdominal: NL Sounds; No Tenderness; No Distention Skin: No Rash or Ulcers, - - Surgical dressing to right knee Neurological: Alert and Oriented x 3 Lines/Tubes/Other Access: Clean, Dry and Intact Peripheral IV Nutrition: Taking PO's Result Diagrams: 04/02/18 05:03 04/01/18 06:24 Assess/Plan/Problems-Billing Assessment: Mr. Goodson is a 67 yo male with PMH of HTN, FRANCIE on CPAP; s/p elective R knee replacement with Dr Blandon. - Patient Problems (1) Status post right knee replacement Current Visit: Yes Status: Acute Code(s): Z96.651 - PRESENCE OF RIGHT ARTIFICIAL KNEE JOINT SNOMED Code(s): 225217985 Comment: - POD 2 - Management per ortho (2) HTN (hypertension) Current Visit: Yes Status: Acute Code(s): I10 - ESSENTIAL (PRIMARY) HYPERTENSION SNOMED Code(s): 36583228 Comment: - Normotensive; SBP 110-130s - Hold olmesartan/HCTZ; may resume at d/c - Continue amlodipine (3) Sleep apnea Current Visit: Yes Status: Acute Code(s): G47.30 - SLEEP APNEA, UNSPECIFIED SNOMED Code(s): 12911824 Comment: - Home CPAP (4) Obesity Current Visit: Yes Status: Acute Code(s): E66.9 - OBESITY, UNSPECIFIED SNOMED Code(s): 091897370 Comment: - BMI 44.2 - Supportive care (5) DVT prophylaxis Current Visit: Yes Status: Acute Code(s): UMQ0371 - SNOMED Code(s): 514477079 Comment: - Lovenox bridging to Coumadin per ortho (6) Full code status Current Visit: Yes Status: Acute Code(s): Z78.9 - OTHER SPECIFIED HEALTH STATUS SNOMED Code(s): 253449410 Status and Disposition: Inpatient. Thank you for this consultation. Medically stable for d/c when weaned off oxygen. We will continue to follow distantly. Attending: Ana Cosme
--- NOTE | 2018-04-02 16:20 | OP ---
OPERATIVE REPORT: ADDENDUM: This is an addendum to the operative note. The patient did request that under anesthesia he have the left knee, which was arthritic, injected with the steroid. A consent was signed for a left knee steroid injection. At the end of the patient's right total knee arthroplasty, the patient's left knee joint was prepped sterilely with ChloraPrep. Procedure time- out was performed. 80 mg of Depo-Medrol and 6 cc of 0.25% Marcaine was injected into the left knee joint. This area was sterilely dressed with a Band- Aid. There were no complications. [id number]/[facility] #: [id number] MTDGiovanny
[2018-04-02] MEDS ORDERED: Warfarin TAB(*) 4 MG PO ONE (17:00)
[2018-04-03] MEDS: Morphine VIAL* 4 MG/ML VIAL (1 ml vial) IV PRN (03:22)
[2018-04-03] MEDS: oxyCODONE/Acetamin 5/325 MG* TAB PO PRN ×3 (03:22→19:05)
[2018-04-03] MEDS ORDERED: Scopolamine PATCH Remove* 1 NOTE MISC PATCH OFF ONE (05:55)
[2018-04-03] MEDS: oxyCODONE TAB* 5 MG TAB PO PRN (06:27)
[2018-04-03 06:49] LABS: Hematocrit 35 % (42-52); Hemoglobin 11.8 g/dl (14.0-18.0)
[2018-04-03 07:23] LABS: INR 1.4 (0.77-1.02)
[2018-04-03] MEDS: Acetaminophen TAB* 325 MG PO SCH ×2 (07:54→15:19)
[2018-04-03] MEDS: Docusate CAP* 100 MG PO SCH ×2 (08:04→20:18)
[2018-04-03] MEDS: Tamsulosin CAP* 0.4 MG PO SCH (08:04)
[2018-04-03] MEDS: Montelukast Sodium TAB* 10 MG PO SCH (08:04)
[2018-04-03] MEDS: Magnesium Hydroxide LIQ* 30 ML UDC PO SCH ×2 (08:04→20:19)
[2018-04-03] MEDS: buPROPion TAB* 100 MG PO SCH ×2 (08:04→12:32)
[2018-04-03] MEDS: Morphine TAB Extended Release (*) 30 MG TAB.ER PO SCH ×2 (08:04→20:24)
[2018-04-03] MEDS: Finasteride TAB* 5 MG PO SCH (08:05)
[2018-04-03] MEDS: Cetirizine* 10 MG TAB PO SCH (08:05)
[2018-04-03] MEDS: PTO: Mometasone NASAL (NF) SPRAY BOTH NARES SCH (08:05)
[2018-04-03] MEDS: PTO:Fluticas/Salmet 230/21 HFA(NF) MDI INH SCH ×2 (08:06→21:17)
[2018-04-03] MEDS: amLODIPine TAB* 5 MG PO SCH (08:06)
[2018-04-03] MEDS: Ondansetron TAB* 4 MG PO PRN (09:37)
--- NOTE | 2018-04-03 11:22 | PN ---
Progress Note - Progress Note Date of Service: 04/03/18 SOAP: Subjective: []Patient seen and examined at bedside. He feels well though continues to desat into the 80's when O2 is removed. Denies chest pain, shortness of breath, dizziness, nausea. Objective: [] General: Well appearing, NAD RLE: Right knee dressing changed, incision CDI without discharge or surrounding erythema. Thigh is soft. DF/PF intact. Dp2+, capillary refill less than two seconds, Sensation intact distally Calves supple and nontender without erythema, edema or palpable cords Sutures were removed from forehead. Incision CDI without erythema, procedure tolerated well by patient. Steri strips placed. Assessment: []POD 3 sp right total knee replacement Low O2 sats, atelectasis on CXR Plan: []WBAT PT/OT - caution with O2 desat recommend frequent monitoring lovenox bridge to coumadin. Coumadin 8 mg tonight Wean off of O2 as able- discussed low sats with medicine. Encouraged IS and frequent monitoring. Long acting morphine for pain control Vital Signs Temp 98.5 F 04/03/18 07:26 Pulse 79 04/03/18 07:26 Resp 18 04/03/18 09:38 BP 168/82 04/03/18 07:26 Pulse Ox 94 04/03/18 08:15 Intake & Output 04/02/18 04/03/18 04/03/18 18:59 06:59 18:59 Intake Total 1000 480 0 Output Total 1600 450 0 Balance -600 30 0 Intake: Oral 1000 480 0 Output: Urine 1600 450 0 Other: Estimated Void Medium # Bowel Movements 0 # Voids 1 Laboratory Last Values Hgb 11.8 g/dl (14.0-18.0) L 04/03/18 05:59 Hct 35 % (42-52) L 04/03/18 05:59 Plt Count 156 10^3/ul (150-450) 04/03/18 05:59 MPV 8.8 fL (7.4-10.4) 04/03/18 05:59 INR (Anticoag Therapy) 1.40 (0.77-1.02) H 04/03/18 05:59 Sodium 138 mmol/L (135-145) 04/01/18 06:24 Potassium 4.4 mmol/L (3.5-5.0) 04/01/18 06:24 Chloride 104 mmol/L (101-111) 04/01/18 06:24 Carbon Dioxide 26 mmol/L (22-32) 04/01/18 06:24 Anion Gap 8 mmol/L (2-11) 04/01/18 06:24 BUN 23 mg/dL (6-24) 04/01/18 06:24 Creatinine 0.80 mg/dL (0.67-1.17) 04/01/18 06:24 Est GFR ( Amer) 117.0 (>60) 04/01/18 06:24 Est GFR (Non-Af Amer) 96.7 (>60) 04/01/18 06:24 BUN/Creatinine Ratio 28.8 (8-20) H 04/01/18 06:24 Glucose 182 mg/dL (70-100) H 04/01/18 06:24 Calcium 8.6 mg/dL (8.6-10.3) 04/01/18 06:24
[2018-04-03] MEDS: Enoxaparin(*) 40 MG/0.4 ML SYR SUBCUT SCH (12:28)
--- NOTE | 2018-04-03 15:38 | PN ---
Subjective Date of Service: 04/03/18 Interval History: Mr. Goodson feels about the same as yesterday. He continues to have significant pain with movement, better at rest. Per nursing, he has required 2-3L NC to maintain sats in the 90s. He ambulated with PT and required 3L NC. He denies SOB , cough, fever, chills, CP, N/V/D, dizziness. Family History: Unchanged from Admission Social History: Unchanged from Admission Past Medical History: Unchanged from Admission Objective Active Medications: Acetaminophen (Tylenol Tab*) 975 mg PO Q8HR URI Albuterol (Ventolin 2.5 Mg/3 Ml Neb.Madeline*) 2.5 mg INH QID PRN Amlodipine Besylate (Norvasc Tab*) 2.5 mg PO QAM URI; Protocol Bisacodyl (Dulcolax Supp*) 10 mg SC DAILY PRN Bupropion HCl (Wellbutrin Tab*) 200 mg PO QAM URI Bupropion HCl (Wellbutrin Tab*) 100 mg PO DAILY@1200 URI Cetirizine HCl (Zyrtec*) 10 mg PO QAM URI Cyclobenzaprine HCl (Flexeril Tab*) 10 mg PO TID PRN Diphenhydramine HCl (Benadryl Iv*) 12.5 mg IV Q6H PRN Docusate Sodium (Colace Cap*) 100 mg PO BID URI Enoxaparin Sodium (Lovenox(*)) 40 mg SUBCUT Q24H URI Finasteride (Proscar Tab*) 5 mg PO QAM [facility] Lactated Ringer's (Lactated Ringers 1000 Ml Bag*) 1,000 mls @ 100 mls/hr IV PER RATE URI Lactulose (Lactulose*) 30 ml PO Q6H PRN Magnesium Hydroxide (Milk Of Magnesia Liq*) 30 ml PO BID URI Magnesium Hydroxide (Milk Of Magnesia Liq*) 30 ml PO Q6H PRN Mometasone Furoate (Nasonex (Nf)) 1 spray BOTH NARES DAILY URI Montelukast Sodium (Singulair Tab*) 10 mg PO QAM URI Morphine Sulfate (Morphine Vial*) 2 mg IV Q2H PRN Morphine Sulfate (Ms Contin(*)) 30 mg PO Q12H URI Ondansetron HCl (Zofran Inj*) 4 mg IV Q6H PRN Ondansetron HCl (Zofran Tab*) 4 mg PO Q6H PRN Oxycodone HCl (Roxycodone Tab*) 10 mg PO Q4H PRN Oxycodone/Acetaminophen (Percocet 5/325 Tab*) 1 tab PO Q4H PRN Oxycodone/Acetaminophen (Percocet 5/325 Tab*) 2 tab PO Q4H PRN Oxymetazoline HCl (Afrin 0.05% Nasal [place]*) 1 spray BOTH NARES Q12H PRN Pharmacy Profile Note (Coumadin Daily Reminder*) 1 note FOLLOW UP 1700 URI Polyethylene Glycol/Electrolytes (Miralax*) 17 gm PO DAILY PRN Fluticasone/Salmeterol (Advair Hfa 23o/21 (Nf)) 2 puff INH BID URI; Protocol Tamsulosin HCl (Flomax Cap*) 0.4 mg PO QAM URI Tramadol HCl (Ultram*) 50 mg PO Q6H PRN Vital Signs - 8 hr 04/03/18 04/03/18 04/03/18 08:04 08:15 09:38 Temperature Pulse Rate Respiratory 16 18 18 Rate Blood Pressure (mmHg) O2 Sat by Pulse 94 Oximetry 04/03/18 04/03/18 04/03/18 10:05 11:23 12:28 Temperature 98.5 F Pulse Rate 82 Respiratory 16 16 16 Rate Blood Pressure 133/58 (mmHg) O2 Sat by Pulse 92 Oximetry 04/03/18 04/03/18 04/03/18 14:40 15:11 15:20 Temperature 98.1 F Pulse Rate 77 Respiratory 16 18 Rate Blood Pressure 126/61 (mmHg) O2 Sat by Pulse 93 93 Oximetry Oxygen Devices in Use Now: Nasal Cannula - 3L Appearance: Middle-aged male sitting in chair in NAD Eyes: No Scleral Icterus Ears/Nose/Mouth/Throat: Mucous Membranes Moist Neck: NL Appearance and Movements; NL JVP, Trachea Midline Respiratory: Symmetrical Chest Expansion and Respiratory Effort, - - Fine crackles to bilat lower lobes, otherwise clear throughout Cardiovascular: NL Sounds; No Murmurs; No JVD, RRR Skin: - - Surgical dressing intact to R knee Neurological: Alert and Oriented x 3 Lines/Tubes/Other Access: Clean, Dry and Intact Peripheral IV Nutrition: Taking PO's Result Diagrams: 11/15/18 05:59 04/01/18 06:24 Assess/Plan/Problems-Billing Assessment: Mr. Goodson is a 67 yo male with PMH of HTN, FRANCIE on CPAP; s/p elective R knee replacement with Dr Blandon. - Patient Problems (1) Status post right knee replacement Current Visit: Yes Status: Acute Code(s): Z96.651 - PRESENCE OF RIGHT ARTIFICIAL KNEE JOINT SNOMED Code(s): 231175322 Comment: - POD 3 - Management per ortho (2) Hypoxia Current Visit: Yes Status: Acute Code(s): R09.02 - HYPOXEMIA SNOMED Code(s ): 874042851 Comment: - 2/2 atelectasis - Requiring 2-3L NC at rest and while ambulating - Crackles in bilat bases; afebrile, no tachycardia - Continue incentive spirometer (3) HTN (hypertension) Current Visit: Yes Status: Acute Code(s): I10 - ESSENTIAL (PRIMARY) HYPERTENSION SNOMED Code(s): 58947359 Comment: - Normotensive - Hold olmesartan/HCTZ; may resume at d/c - Continue amlodipine (4) Sleep apnea Current Visit: Yes Status: Acute Code(s): G47.30 - SLEEP APNEA, UNSPECIFIED SNOMED Code(s): 05344578 Comment: - Home CPAP (5) Obesity Current Visit: Yes Status: Acute Code(s): E66.9 - OBESITY, UNSPECIFIED SNOMED Code(s): 027878825 Comment: - BMI 44.2 - Supportive care (6) DVT prophylaxis Current Visit: Yes Status: Acute Code(s): DBS6097 - SNOMED Code(s): 316402846 Comment: - Lovenox bridging to Coumadin per ortho (7) Full code status Current Visit: Yes Status: Acute Code(s): Z78.9 - OTHER SPECIFIED HEALTH STATUS SNOMED Code(s): 803017596 Status and Disposition: Inpatient. Thank you for this consultation. Medically stable for d/c when weaned off oxygen. We will continue to follow for hypoxia.
[2018-04-03 19:01] LABS: ABS Basophils 0 10^3/ul (0-0.2); ABS Eosinophils 0.2 10^3/ul (0-0.6); ABS Lymphocytes 0.9 10^3/ul (1.0-4.8); ABS Monocytes 1.2 10^3/ul (0-0.8); ABS Neutrophils 8.4 10^3/ul (1.5-7.7); ABS Nucleated RBC 0 10^3/ul; Eosinophil % 1.6 % (0-6); Hematocrit 35 % (42-52); Hemoglobin 11.8 g/dl (14.0-18.0); Lymphocyte % 8.8 % (25-47); Mean Corpuscular HGB Conc 34 g/dl (31-36); Mean Corpuscular Hemoglobin 31 pg (27-31); Mean Corpuscular Volume 92 fL (80-94); Mean Platelet Volume 8.5 fL (7.4-10.4); Nucleated Red Blood Cells % 0.1; Platelet Count 166 10^3/ul (150-450); Red Cell Distribution Width 14 % (10.5-15); White Blood Count 10.7 10^3/ul (3.5-10.8)
[2018-04-03] MEDS ORDERED: Warfarin TAB(*) 6 MG PO ONE (20:00)
[2018-04-04] MEDS: Acetaminophen TAB* 325 MG PO SCH ×2 (00:19→07:23)
[2018-04-04] MEDS: PTO:Fluticas/Salmet 230/21 HFA(NF) MDI INH SCH (07:05)
[2018-04-04] MEDS: Ondansetron TAB* 4 MG PO PRN (07:50)
[2018-04-04 08:15] LABS: Hematocrit 36 % (42-52); Hemoglobin 12.1 g/dl (14.0-18.0); Mean Platelet Volume 8.5 fL (7.4-10.4); Platelet Count 181 10^3/ul (150-450)
[2018-04-04] MEDS: Morphine TAB Extended Release (*) 30 MG TAB.ER PO SCH (08:21)
[2018-04-04 08:24] LABS: INR 1.89 (0.77-1.02)
[2018-04-04] MEDS: buPROPion TAB* 100 MG PO SCH ×2 (09:57→12:34)
[2018-04-04] MEDS: amLODIPine TAB* 5 MG PO SCH (09:57)
[2018-04-04] MEDS: Finasteride TAB* 5 MG PO SCH (09:57)
[2018-04-04] MEDS: Tamsulosin CAP* 0.4 MG PO SCH (09:57)
[2018-04-04] MEDS: Cetirizine* 10 MG TAB PO SCH (09:58)
[2018-04-04] MEDS: Docusate CAP* 100 MG PO SCH (09:58)
[2018-04-04] MEDS: PTO: Mometasone NASAL (NF) SPRAY BOTH NARES SCH (09:59)
[2018-04-04] MEDS: oxyCODONE/Acetamin 5/325 MG* TAB PO PRN (09:59)
[2018-04-04] MEDS: Montelukast Sodium TAB* 10 MG PO SCH (10:01)
[2018-04-04] MEDS: Magnesium Hydroxide LIQ* 30 ML UDC PO SCH (10:01)
--- NOTE | 2018-04-04 11:06 | PN ---
Progress Note - Progress Note Date of Service: 04/04/18 SOAP: Subjective: [] Patient seen OOB in chair. Denies SOB, CP, palpitations. Feels better, still having moderate knee pain at times. Continues to be on O2, 3L with O2 sats remaining in the low to mid nineties. Objective: [] Vital Signs Temp 98.7 F 04/04/18 07:03 Pulse 73 04/04/18 07:03 Resp 18 04/04/18 10:16 BP 150/69 04/04/18 07:03 Pulse Ox 91 04/04/18 11:00 Intake & Output 04/03/18 04/04/18 04/04/18 18:59 06:59 18:59 Intake Total 0 820 170 Output Total 100 0 Balance -100 820 170 Intake: Oral 0 820 170 Output: Urine 100 0 Other: Estimated Void Medium Large Date of Last Bowel 04/04/18 Movement # Bowel Movements 1 Estimated Stool Amount Large # Voids 2 Laboratory Results - last 24 hr 04/03/18 04/03/18 04/03/18 05:54 05:59 18:42 WBC Cancelled 10.7 RBC Cancelled 3.80 L Hgb 11.8 L 11.8 L Hct 35 L 35 L MCV Cancelled 92 MCH Cancelled 31 MCHC Cancelled 34 RDW Cancelled 14 Plt Count Cancelled 166 MPV Cancelled 8.5 Neut % (Auto) Cancelled 78.4 Lymph % (Auto) Cancelled 8.8 L [place] % (Auto) Cancelled 10.9 H Eos % (Auto) Cancelled 1.6 Baso % (Auto) Cancelled 0.3 Absolute Neuts (auto) Cancelled 8.4 H Absolute Lymphs (auto) Cancelled 0.9 L Absolute Monos (auto) Cancelled 1.2 H Absolute Eos (auto) Cancelled 0.2 Absolute Basos (auto) Cancelled 0 Absolute Nucleated RBC Cancelled 0 Nucleated RBC % Cancelled 0.1 Diff Slide Review Cancelled Hypogranular Platelets Cancelled Clumped Platelets Cancelled Large Platelets Cancelled Giant Platelets Cancelled INR (Anticoag Therapy) B-Natriuretic Peptide 58 04/04/18 04/04/18 08:01 08:01 WBC RBC Hgb 12.1 L Hct 36 L MCV MCH MCHC RDW Plt Count 181 MPV 8.5 Neut % (Auto) Lymph % (Auto) [place] % (Auto) Eos % (Auto) Baso % (Auto) Absolute Neuts (auto) Absolute Lymphs (auto) Absolute Monos (auto) Absolute Eos (auto) Absolute Basos (auto) Absolute Nucleated RBC Nucleated RBC % Diff Slide Review Hypogranular Platelets Clumped Platelets Large Platelets Giant Platelets INR (Anticoag Therapy) 1.89 H B-Natriuretic Peptide Right knee incision benign calf NT +DF/PF right ankle sensation and circulation intact distally Assessment: []s/p RTK arthroplasty POD #3 Atelectasis with previous history of asthma and sleep apnea Plan: []Discharge home this afternoon with home O2 therapy- recommend f/u with PCP VNS ordered Continue incentive spirometry Coumadin 4 mg today Percocet for pain at home Follow up in 10-[address] Blandon as scheduled.
[2018-04-04 11:50] VITALS: BP 129/58
[2018-04-04] MEDS: Enoxaparin(*) 40 MG/0.4 ML SYR SUBCUT SCH (12:34)
--- NOTE | 2018-04-05 03:17 | DS ---
DISCHARGE SUMMARY: DATE OF ADMISSION: 03/31/18 DATE OF DISCHARGE: 04/04/18 ATTENDING PHYSICIAN: Caterina Blandon MD * (DICTATED BY RICA ALAN) ADMISSION DIAGNOSIS: Severe end-stage degenerative osteoarthritis, right knee joint. DISCHARGE DIAGNOSES: Severe end-stage degenerative osteoarthritis, right knee joint, postoperative atelectasis and need for nasal cannula oxygen. SURGERY PERFORMED: Right total knee arthroplasty. HOSPITAL COURSE: The patient is a 67-year-old male with years of increasingly severe right knee pain. He failed conservative treatment with antiinflammatories, pain medication, intraarticular cortisone injections, and physical therapy. Due to continued pain and decreased quality of life, he elected to proceed with surgical intervention. He was taken to the operating room under the care of Dr. Caterina Blandon on 03/31/18, for the aforementioned procedure. He tolerated the procedure well and left the operating room in stable condition. On postoperative day #2, he developed decreased oxygen saturation with activity when he was taken off oxygen. He was followed by the medical service. Chest x-ray was obtained and did not show evidence of pneumonia, but showed evidence of atelectasis. He continued to have low oxygen saturation with removal of oxygen therapy. He does have a history of sleep apnea and asthma and now with the atelectasis is contributing to this. Otherwise , he progressed with his physical therapy and occupational therapy goals. It was felt that he was stable medically and orthopedically for discharge to home with home oxygen therapy at this point. He has been compliant with incentive spirometry, which he will continue as well. CONDITION ON DISCHARGE: The patient is afebrile, pulse is 77, respiratory rate 18, O2 saturation is 91% on 3 L; he does desat to 74% when taken off of oxygen. The patient denies feeling short of breath. He will be discharged home later this afternoon and will continue on Coumadin for DVT prophylaxis. His INR is 1.89 on 04/04/18. He will take 4 mg of Coumadin today, 04/04/18; 2 mg of Coumadin on 04/05/18; and 2 mg of Coumadin on 04/06/18 with a repeat INR to be drawn with further dosages to be instructed. He is provided with a prescription of Percocet 5/325 one to two tablets p.o. q.4 hours p.r.n. pain #30, 0 refill and he will be provided with home oxygen therapy, for which he will continue at this time. I recommend he follow up with his primary care provider regarding his atelectasis and low O2 sats off oxygen therapy. He is scheduled to follow up in the office in 10 [address] Blandon. His prescriptions were sent to [facility]. RICA ALAN [id number]/[facility] #: [id number] MTDGiovanny
== END 2018-04-04 15:19 | disposition home health service (06) | DRG 470 ==
LOC: AA 11:53 → SSU 17:34
PROVIDERS: ADMIT Orthopaedic Surgery Adult Reconstructive Orthopaedic Surgery; ATTEND Internal Medicine
PROC: 0SRC069 Replacement of Right Knee Joint with Oxidized Zirconium on Polyethylene Synthetic Substitute, Cemented, Open Approach (ICD-10-PCS; principal; 2018-03-31 15:00)
DX: M17.11 Unilateral primary osteoarthritis, right knee (principal); J98.11 Atelectasis; E66.01 Morbid (severe) obesity due to excess calories; M25.461 Effusion, right knee; M51.26 Other intervertebral disc displacement, lumbar region; G47.33 Obstructive sleep apnea (adult) (pediatric); E55.9 Vitamin D deficiency, unspecified; I10 Essential (primary) hypertension; I27.20 Pulmonary hypertension, unspecified; F32.9 Major depressive disorder, single episode, unspecified; J45.909 Unspecified asthma, uncomplicated; G89.29 Other chronic pain; N40.0 Benign prostatic hyperplasia without lower urinary tract symptoms; M25.761 Osteophyte, right knee; Z88.1 Allergy status to other antibiotic agents; Z88.8 Allergy status to other drugs, medicaments and biological substances; Z91.011 Allergy to milk products; Z91.018 Allergy to other foods; Z68.41 Body mass index [BMI] 40.0-44.9, adult; Z99.81 Dependence on supplemental oxygen; Z72.89 Other problems related to lifestyle; Z80.42 Family history of malignant neoplasm of prostate; Z81.8 Family history of other mental and behavioral disorders; Z80.0 Family history of malignant neoplasm of digestive organs; R09.02 Hypoxemia; R11.2 Nausea with vomiting, unspecified
CPT/HCPCS: 36415; 71045; 71046; 80048; 83880; 85014; 85018; 85025; 85049; 85610; 94640; A9270-GY; C1776; G8987-GO-CJ; G8988-GO-CI; J0690; J1040; J1100; J1650; J1885; J2250; J2270; J2405; J2704; J3010; J3490; J8540